=== PATIENT | female | born 1980 | race Caucasian/White ===

== ENCOUNTER 2017-06-17 15:42 | Emergency (ER) | payer MEDICARE ==
[2015-09-08 06:09] VITALS: BMI 43.3
[~2017-06-17 15:42] MED LIST: AMITRIPTYLINE H50 MG PO; COREG 3.1253.125 MG PO; COREG12.5 MG PO; COREG25 MG PO; DEPAKOTE500 MG PO; DESERYL100 MG PO; DILANTIN100 MG PO; DILAUDID2 MG PO; GLUCOPHAGE500 MG PO; HYDROCODON-ACE1 EAC7 PO; HYDROCODONE-APA1 TAB; LANTUS SOL100 UNIT/1 SC; LASIX20 MG PO; LEVAQUIN 5500 MG/100 PO; PEPCID40 MG PO; PERCOCET 10/3251 TA1 PO; PERPHENAZINE2 MG PO; PHENERGAN25 M1 PO; PRAVACHOL20 MG PO; REGLAN5 MG PO; REMERON15 MG PO; TENORMIN25 MG; ULTRAM50 MG PO; ZESTRIL40 MG PO; ZOFRAN8 MG PO; ZOLOFT50 MG PO; ZYPREXA20 MG PO; domperidone PO
[2017-06-17 17:06] LABS: BASOPHILS 0.2 % (0-2); EOSINOPHILS 0 % (0-7); HEMATOCRIT 37.7 % (36.0-48.0); IMMATURE GRANULOCYTES 0.5 % (0-5); MCH 27.3 pg (26.0-34.0); MCHC 31.8 g/dL (31.0-37.0); MCV 85.7 fL (80.0-100.0); MEAN PLATELET VOLUME 9.6 fL (7.4-10.4); MONOCYTES 6.8 % (2-11); NEUTROPHILS 64.5 % (40-80); PLATELET COUNT 272 10x3/uL (130-400); RDW 13.5 % (11.5-14.5); WBC 9.9 10x3/uL (4.8-10.8)
[2017-06-17 17:12] LABS: APPEARANCE CLEAR (CLEAR); BILIRUBIN NEGATIVE (NEGATIVE); COLOR YELLOW (YELLOW); GLUCOSE NEGATIVE (NEGATIVE); KETONE NEGATIVE (NEGATIVE); LEUKOCYTE ESTERASE NEGATIVE (NEGATIVE); NITRITE NEGATIVE (NEGATIVE); PROTEIN NEGATIVE (NEGATIVE); UROBILINOGEN NORMAL (NORMAL)
[2017-06-17 17:14] LABS: BACTERIA FEW /hpf (NONE SEEN); EPITHELIAL CELLS 0-5 /hpf (0-5); RED CELLS - URINE OCC /hpf (0-5); WHITE CELLS - URINE OCC /hpf (0-5)
[2017-06-17 17:26] LABS: ALBUMIN 3.7 g/dL (3.4-5.0); ANION GAP 15.9 mmol/L (8-16); BILIRUBIN - TOTAL 0.26 mg/dL (0.2-1.3); CALCIUM 8.5 mg/dL (8.5-10.1); CARBON DIOXIDE 24.7 mmol/L (21.0-32.0); POTASSIUM - SERUM 3.6 mmol/L (3.5-5.1); PROTEIN - SERUM 6.9 g/dL (6.4-8.2)
== END 2017-06-17 20:05 | disposition home or self-care (01) ==
LOC: D.ER 15:42
PROVIDERS: Emergency Medicine
DX: G40.909 Epilepsy, unspecified, not intractable, without status epilepticus (principal); E11.9 Type 2 diabetes mellitus without complications

== ENCOUNTER 2017-07-10 19:20 | Observation (INO) | payer MEDICARE ==
[~2017-07-10] VITALS: Ht 160 cm; Wt 117.9 kg
--- NOTE | ~2017-07-10 | OP ---
PATIENT NAME: CINDI MEDICAL RECORD: [id number] :82 LOCATION:D.MS [facility]29 ADMISSION DATE:07/11/17 SURGEON: JEFFREY WINKLER MD DATE OF OPERATION: 07/11/2017 PREOPERATIVE DIAGNOSES: 1. Diabetic gastroparesis. 2. Diabetes mellitus. 3. Seizure disorder. POSTOPERATIVE DIAGNOSES: 1. Diabetic gastroparesis. 2. Diabetes mellitus. 3. Seizure disorder. PROCEDURE: Percutaneous endoscopic jejunostomy tube placement. SURGEON: Jeffrey Winkler MD REPORT OF PROCEDURE: The patient's abdomen was prepped and draped in sterile fashion. An Olympus endoscope was advanced through the mouth and esophagus and found the area on the antrum/body of the stomach to house the tube. A total of 5 cc of 1% lidocaine was infused into the subcutaneous tissues. A skin incision was then made with an 11 blade. An Angiocath needle was inserted through the abdominal wall and into the gastric lumen. A guidewire was advanced through this and grasped with an Endo snare. The guidewire and scope were pulled through the mouth and esophagus and the 20-St Helenian PEG tube was affixed to the wire. The wire and PEG tube were pulled through the abdominal wall. At this point, the end PEG tube was opened up and a wire was advanced through the PEG tube into the gastric lumen and also through a gastrojejunostomy tube. We advanced the endoscope back through the mouth and esophagus. We grasped the PEG tube and pulled it out through the mouth and over the wire that was in place, we pulled the jejunostomy tube through the gastric wall. The jejunostomy tube was then positioned in the fourth portion of the duodenum using the endoscope. Once the tube was in good position, we noted that was flushing easily with sterile water. There was no sign of any active bleeding. The balloon on the gastrostomy tube was inflated with 10 mL of sterile water and pulled tightly to the abdominal wall. At this point, the insufflation and endoscope was removed. COMPLICATIONS: None. CONDITION: Stable. ANESTHESIA: General endotracheal. BLOOD LOSS: Minimal. TRANSINT:[id number] Voice Confirmation ID: [id number] DOCUMENT ID: [id number] OPERATIVE REPORT [id number] CINDI JEFFREY WINKLER MD CC: JOHN ARNDT MD and ELDER MARTIN MD [id number] DICTATION DATE: 07/11/17 1648 AUTOMATIC WINDER OPERATOR: 07/12/17 0004 ADM IN [place] [id number] [place] [id number]
[2017-07-10 20:22] LABS: APPEARANCE HAZY (CLEAR); BILIRUBIN NEGATIVE (NEGATIVE); COLOR YELLOW PINK (YELLOW); GLUCOSE NEGATIVE (NEGATIVE); KETONE NEGATIVE (NEGATIVE); LEUKOCYTE ESTERASE 1+ (NEGATIVE); NITRITE NEGATIVE (NEGATIVE); PROTEIN NEGATIVE (NEGATIVE); SPECIFIC GRAVITY 1.015 (1.005-1.020); UROBILINOGEN NORMAL (NORMAL)
[2017-07-10 20:23] LABS: BACTERIA MODERATE /hpf (NONE SEEN); EPITHELIAL CELLS 0-5 /hpf (0-5); MUCUS <1+ /lpf (NONE SEEN); WHITE CELLS - URINE 0-5 /hpf (0-5)
[2017-07-10 20:28] LABS: UDS - AMPHET NEGATIVE QUAL (NEGATIVE); UDS - BARB NEGATIVE QUAL (NEGATIVE); UDS - BENZO NEGATIVE QUAL (NEGATIVE); UDS - COCAINE NEGATIVE QUAL (NEGATIVE); UDS - METH NEGATIVE QUAL (NEGATIVE); UDS - OPIATE NEGATIVE QUAL (NEGATIVE); UDS - PCP NEGATIVE QUAL (NEGATIVE); UDS - THC NEGATIVE QUAL (NEGATIVE)
[2017-07-10 20:36] LABS: BASOPHILS 0.2 % (0-2); EOSINOPHILS 0.1 % (0-7); HEMATOCRIT 39.9 % (36.0-48.0); HEMOGLOBIN 12.8 g/dL (12-16); IMMATURE GRANULOCYTES 0.2 % (0-5); LYMPHOCYTES 29.3 % (15-50); MCH 27.3 pg (26.0-34.0); MCHC 32.1 g/dL (31.0-37.0); MCV 85.1 fL (80.0-100.0); MEAN PLATELET VOLUME 9.7 fL (7.4-10.4); MONOCYTES 8.2 % (2-11); PLATELET COUNT 231 10x3/uL (130-400); RBC 4.69 10x6/uL (4.00-5.40); RDW 14.4 % (11.5-14.5); WBC 9.6 10x3/uL (4.8-10.8)
[2017-07-10 20:56] LABS: ALBUMIN 3.8 g/dL (3.4-5.0); ANION GAP 9.9 mmol/L (8-16); BILIRUBIN - TOTAL 0.15 mg/dL (0.2-1.3); CARBON DIOXIDE 29.6 mmol/L (21.0-32.0); PHENYTOIN (DILANTIN) 0.9 ug/mL (10.0-20.0); POTASSIUM - SERUM 3.5 mmol/L (3.5-5.1); PROTEIN - SERUM 7.9 g/dL (6.4-8.2); VALPROIC ACID (DEPAKOTE) 27.3 ug/mL (50.0-100.0)
[2017-07-11] MEDS ORDERED: ULTRAM50 MG PO (02:45)
[2017-07-11] MEDS ORDERED: MIRAPEX0.125 MG PO (02:49)
[2017-07-11] MEDS ORDERED: DEPAKOTE250 MG PO (02:50)
[2017-07-11] MEDS ORDERED: DILANTIN100 MG PO (02:53)
[2017-07-11] MEDS ORDERED: TEMAZEPAM30 MG PO (02:56)
[2017-07-11] MEDS ORDERED: PHENERGAN25 M1 PO (02:58)
[2017-07-11] MEDS ORDERED: OMEPRAZOLE CAP 20M (03:00)
[2017-07-11] MEDS ORDERED: LISINOPRIL TAB 5MG (03:00)
[2017-07-11] MEDS ORDERED: ZOLOFT100 MG PO (03:04)
[2017-07-11] MEDS ORDERED: NOVOLIN R100 U/ML (03:06)
[2017-07-11 03:09] VITALS: BP 153/100; BMI 46.1
[2017-07-11 04:00] VITALS: BP 140/86
--- NOTE | 2017-07-11 04:30 | NUR ---
ANSWERED CALL LIGHT AND PT ARMS AND FEET SHAKING WITH EYES CLOSED. MOTHER STATED SHE WAS HAVING A SEIZURE. SEIZURE LASTED LESS THAN A MINUITE WHEN THIS NURSE ENTERED THE ROOM. EDUCATED MOTHER ON PRECAUTIONS SUCH KEEP BED RAILS UP AND KEEP HER HEAD SAFE. NO BRIGHT LIGHT OR LOUD SOUNDS. KEEP A QUIET ENVIROMENT. PT DID NOT AROUSE AFTERWARD. CONT. TO HAVE EYES CLOSED.
[2017-07-11 07:53] VITALS: BP 163/89
--- NOTE | 2017-07-11 08:05 | NUR ---
PT AOX4 RESP EVEN AND NONLABORED PT DENIES NEEDS AT THIS TIME IV TO LEFT HAND PATENT AND INTACT AT THIS TIME SRX2 BED AT LOWEST SETTING CALL LIGHT WITHIN REACH WILL CONTINUE TO MONITOR
[2017-07-11 10:18] LABS: BASOPHILS 0.2 % (0-2); EOSINOPHILS 0 % (0-7); HEMATOCRIT 39.4 % (36.0-48.0); HEMOGLOBIN 12.7 g/dL (12-16); IMMATURE GRANULOCYTES 0.2 % (0-5); LYMPHOCYTES 28.6 % (15-50); MCH 27.2 pg (26.0-34.0); MCHC 32.2 g/dL (31.0-37.0); MCV 84.4 fL (80.0-100.0); MONOCYTES 7.7 % (2-11); NEUTROPHILS 63.3 % (40-80); PLATELET COUNT 223 10x3/uL (130-400); RBC 4.67 10x6/uL (4.00-5.40); RDW 14.5 % (11.5-14.5); WBC 8.5 10x3/uL (4.8-10.8)
[2017-07-11 10:40] LABS: ALKALINE PHOSPHATASE 87 U/L (46-116); ALT (SGPT) 19 U/L (10-68); AMYLASE - SERUM 35 U/L (25-115); CALC OSMOLALITY 278 mosm/kg (275-300); CALCIUM 8.9 mg/dL (8.5-10.1); CARBON DIOXIDE 27.1 mmol/L (21.0-32.0); CHLORIDE - SERUM 103 mmol/L (98-107); CREATININE - SERUM 0.9 mg/dL (0.6-1.3); GLUCOSE 133 mg/dL (74-106); LIPASE 221 U/L (73-393); PROTEIN - SERUM 7.9 g/dL (6.4-8.2); SODIUM 140 mmol/L (136-145); UREA NITROGEN 6 mg/dL (7-18); eGFR NON AFRICAN AMERICAN 75 mL/min (90-120)
[2017-07-11 10:41] LABS: POTASSIUM - SERUM 4.2 mmol/L (3.5-5.1)
[2017-07-11 12:16] VITALS: BP 144/79
[2017-07-11 12:59] VITALS: Ht 160 cm; Wt 117.9 kg
[2017-07-11 17:56] VITALS: BP 165/87
--- NOTE | 2017-07-11 19:10 | NUR ---
LYING IN BED WITH EYES CLOSED. NO S/S OF DISTRESS OBSERVED. VISITOR AT BEDSIDE IV TO LEFT HAND WITH NS@125CC/HR.
[2017-07-11 20:00] VITALS: BP 188/107
[2017-07-12] VITALS: BP 166/89
[2017-07-12 04:00] VITALS: BP 160/97
--- NOTE | 2017-07-12 07:50 | NUR ---
PT AOX4 RESP EVEN AND NONLABORED PT DENIES NEEDS AT THIS TIME IV TO LEFT FOREARM PATENT AND INTACT AT THIS TIME SRX2 BED AT LOWEST SETTING CALL LIGHT WITHIN REACH WILL CONTINUE TO MONITOR
[2017-07-12 08:21] VITALS: BP 145/87
[2017-07-12 12:09] VITALS: BP 143/77
[2017-07-12] MEDS ORDERED: HYDROCODONE-APA1 TAB PO (14:16)
[2017-07-12 15:55] VITALS: BP 145/89
== END 2017-07-12 17:00 | disposition home or self-care (01) ==
LOC: D.ER 19:20 → D.MS 07-11 00:24 → OBSVTIME 07-11 00:24 → D.MS 07-11 00:24
PROVIDERS: Emergency Medicine; ADMIT Family Medicine
DX: E11.43 Type 2 diabetes mellitus with diabetic autonomic (poly)neuropathy (principal); K31.84 Gastroparesis; Z79.4 Long term (current) use of insulin; G40.909 Epilepsy, unspecified, not intractable, without status epilepticus; I10 Essential (primary) hypertension; N39.0 Urinary tract infection, site not specified; G47.00 Insomnia, unspecified

== ENCOUNTER 2017-09-02 07:30 | Emergency (ER) | payer MEDICARE ==
[2017-07-11 12:59] VITALS: BMI 46.0
--- NOTE | ~2017-09-02 | HEMODYNAMI ---
PATIENT:ALISTAIR PUENTE MEDICAL RECORD: [id number] : 82 LOCATION:D.ER ADMISSION DATE: 09/02/17 Generatedon:09/02/201710:55 Patient name: ALISTAIR PUENTE Patient #: [id number] SSN: : 1980 Date of study: 09/02/2017 Page: Of Hemodynamic Procedure Report Patient Data Patient Demographics Procedure consent was obtained First Name: MARCH Gender: Female Last Name: CINDI : 1980 Middle Initial: D Age: 37 year(s) Patient #: [id number] Race: Unknown Additional ID: [id number] Contact details Address: [address] [place] [address] State: [place] City: [place] Zip code: [address] Admission Admission Data Admission Date: 09/02/2017 Admission Time: 7:30 Procedure Procedure Types Cath Procedure Peripheral Cath Diagnostic Procedure Miscellaneous Procedure Description Procedure Date Procedure Date: 09/02/2017 Procedure Start Time: 10:23 Procedure Staff Name Function Tone Vazquez MD Performing Physician Sol Kenny RT Scrub Anne Martinez RN Nurse Abhinav Schultz RT Monitor Procedure Data Cath Procedure Fluoroscopy Diagnostic fluoroscopy Total fluoroscopy Time: 6.1 time: 6.1 min min Diagnostic fluoroscopy Total fluoroscopy dose: 112 dose: 112 mGy mGy Contrast Material Contrast Material Type Amount (ml) Isovue 300 20 Hemodynamics Rest Pre Cath Intra NCS Post Cath Procedure Log Time Note 9:37:41 Abhinav Schultz RT (R) (CV) sent for patient. Start room use. 9:37:46 Time tracking: Regular hours 9:37:54 Plan of Care:Hemodynamics will remain stable., Cardiac rhythm will remain stable., Comfort level will be maintained., Respiratory function will remain adequate., Patient/ family verbilizes understanding of procedure., Procedure tolerated without complication., Recovers from procedure without complications.. 9:38:12 Patient received from ED to IR Alert and oriented. Tansferred to table in Supine position. 9:38:14 Correct patient and procedure confirmed by team. 9:38:17 Signed procedure consent form obtained from patient. 9:38:23 Full Disclosure recording started 9::24 - 9:38:32 Use device set IR Diagnostic 9:38:33 Sterile Angiographic Pack opened to sterile field. 9:38:34 Bag Decanter opened to sterile field. 9:55:11 Left abdomen area was prepped with chlora-prep and draped in sterile fashion 10::24 Physician arrived 10::24 --------ALL STOP TIME OUT------ 10:21:31 Left abdomen site verified by team. 10:21:42 Sedation plan: Local Anesthetic Lidocaine 10:23:52 Procedure started. 10:23:58 Local anesthetic to Abdominal area with Lidocaine 1% by Tone Vazquez MD.INITIAL ACCESS ONLY 10:25:16 20Fr Gastro-Enteric Tube opened to sterile field. 10:27:12 Terumo 4FR Straight 65CM glide catheter opened to sterile field. 10:27:[address] .035 145 glide wire opened to sterile field. 10:37:21 Cook Fuentes 1 7Fr Guide sheath opened to sterile field. 10:42:45 [place] Sci AMPLATZ Super stiff 180cm guide wire opened to sterile field . 10:49:52 Procedure ended.(Physican Out) 10:50:34 Contrast amount:Isovue 300 20ml. 10:51:31 Fluoroscopy time 06.10 minutes. 10:51:46 Fluoroscopy dose: 112 mGy 10:51:46 Flurop Dose total: 112 10:54:25 Sharps counted by scrub and verified by R.N. 10:54:40 Post Abdominal area:stable 10:54:42 Post procedure instruction explained to patient.Patient verbalizes understanding. 10:54:59 Report given to Other. 10:55:01 Report given to ED. 10:55:05 Patient transfered to ED with Stretcher. Device Usage Item Name Manufacture Quantity Catalog Hospital Part Current Minim al Lot# / Number Charge Number Stock Stock Serial# Code Sterile Cardinal 1 [id number] 5 Angiographic Health Pack Bag Decanter Microtek 1 2001S [id number] 99556 120566 5 Medical Inc. 18Fr Halyard 1 0110-18 680086 923547 969973 5 Gastro[employer]ic [employer] Tube Terumo 4FR Terumo 1 CG412 960114 591466 5 Straight 65CM glide catheter Cook Cook Medical 1 [id number] 352506 831719 5 ROADRUNNER .035 145 glide wire Cook Fuentes 1 Cook Medical 1 [id number] 324509 5 [id number] 7Fr Guide sheath Antwerp Sci [place] 1 [id number] [id number] 5 [id number] AMPLATZ Super Scientific stiff 180cm guide wire Signature Audit [place] Stage Time Signature Unsigned Intra-Procedure 09/02/2017 Abhinav 10:55:45 AM Marion RT (R) (CV) Signatures Monitor : Abhinav Signature : Marion RT Date : Time : [place] [address] [place] [address]
[~2017-09-02 07:30] MED LIST changes: +DEPAKOTE250 MG PO; +HYDROCODONE-APA1 TAB PO; +LISINOPRIL TAB 5MG; +MIRAPEX0.125 MG PO; +NOVOLIN R100 U/ML; +OMEPRAZOLE CAP 20M; +TEMAZEPAM30 MG PO; +ZOLOFT100 MG PO
== END 2017-09-02 11:25 | disposition home or self-care (01) ==
LOC: D.ER 07:30
DX: K94.29 Other complications of gastrostomy (principal); E11.9 Type 2 diabetes mellitus without complications

== ENCOUNTER 2017-12-24 17:27 | Emergency (ER) | payer MEDICARE ==
[2017-07-11 12:59] VITALS: BMI 46.0
[2017-12-24 18:08] LABS: BASOPHILS 0.2 % (0-2); EOSINOPHILS 0.1 % (0-7); HEMATOCRIT 41.2 % (36.0-48.0); HEMOGLOBIN 13.5 g/dL (12-16); IMMATURE GRANULOCYTES 0.5 % (0-5); LYMPHOCYTES 21.5 % (15-50); MCH 27.4 pg (26.0-34.0); MCHC 32.8 g/dL (31.0-37.0); MCV 83.6 fL (80.0-100.0); MEAN PLATELET VOLUME 9.5 fL (7.4-10.4); MONOCYTES 6.1 % (2-11); NEUTROPHILS 71.6 % (40-80); RBC 4.93 10x6/uL (4.00-5.40); RDW 13.7 % (11.5-14.5); WBC 11.9 10x3/uL (4.8-10.8)
[2017-12-24 18:14] LABS: PLATELET COUNT 316 10x3/uL (130-400)
[2017-12-24 18:24] LABS: ALBUMIN 4.1 g/dL (3.4-5.0); ALKALINE PHOSPHATASE 92 U/L (46-116); ALT (SGPT) 33 U/L (10-68); BILIRUBIN - TOTAL 0.17 mg/dL (0.2-1.3); CALC OSMOLALITY 279 mosm/kg (275-300); CALCIUM 9.4 mg/dL (8.5-10.1); CARBON DIOXIDE 25.3 mmol/L (21.0-32.0); CHLORIDE - SERUM 101 mmol/L (98-107); CREATININE - SERUM 0.9 mg/dL (0.6-1.3); GLUCOSE 151 mg/dL (74-106); POTASSIUM - SERUM 3.8 mmol/L (3.5-5.1); PROTEIN - SERUM 8.3 g/dL (6.4-8.2); SODIUM 139 mmol/L (136-145); UREA NITROGEN 11 mg/dL (7-18); eGFR NON AFRICAN AMERICAN 75 mL/min (90-120)
[2017-12-24 18:34] LABS: CKMB 0.6 U/L (0.0-3.6); CREATINE KINASE 160 UL (21-215)
[2017-12-24 18:44] LABS: TROPONIN-I < 0.017 ng/mL (0.000-0.060)
== END 2017-12-24 21:00 | disposition home or self-care (01) ==
LOC: D.ER 17:27
PROVIDERS: Emergency Medicine
DX: R11.10 Vomiting, unspecified (principal); K31.84 Gastroparesis; Z95.0 Presence of cardiac pacemaker; E11.9 Type 2 diabetes mellitus without complications; F17.200 Nicotine dependence, unspecified, uncomplicated

== ENCOUNTER 2017-12-29 22:28 | Emergency (ER) | payer MEDICARE ==
[2017-07-11 12:59] VITALS: BMI 46.0
[2017-12-30 00:09] LABS: HCG SERUM NEGATIVE (NEGATIVE)
[2017-12-30 00:10] LABS: APPEARANCE CLEAR (CLEAR); BILIRUBIN NEGATIVE (NEGATIVE); COLOR YELLOW (YELLOW); GLUCOSE NEGATIVE (NEGATIVE); KETONE NEGATIVE (NEGATIVE); NITRITE NEGATIVE (NEGATIVE); PROTEIN NEGATIVE (NEGATIVE); SPECIFIC GRAVITY 1.015 (1.005-1.020); UROBILINOGEN NORMAL (NORMAL)
[2017-12-30 00:12] LABS: BACTERIA FEW /hpf (NONE SEEN); EPITHELIAL CELLS 0-5 /hpf (0-5); RED CELLS - URINE 0-5 /hpf (0-5); WHITE CELLS - URINE 0-5 /hpf (0-5); YEAST <1+ /hpf (NONE SEEN)
[2017-12-30 00:12] LABS: ALBUMIN 3.8 g/dL (3.4-5.0); ALKALINE PHOSPHATASE 90 U/L (46-116); ALT (SGPT) 36 U/L (10-68); CALC OSMOLALITY 282 mosm/kg (275-300); CALCIUM 9.4 mg/dL (8.5-10.1); CARBON DIOXIDE 26.4 mmol/L (21.0-32.0); CHLORIDE - SERUM 102 mmol/L (98-107); CREATININE - SERUM 0.8 mg/dL (0.6-1.3); GLUCOSE 124 mg/dL (74-106); LIPASE 385 U/L (73-393); POTASSIUM - SERUM 3.5 mmol/L (3.5-5.1); PROTEIN - SERUM 7.7 g/dL (6.4-8.2); SODIUM 141 mmol/L (136-145); UREA NITROGEN 14 mg/dL (7-18); eGFR NON AFRICAN AMERICAN 86 mL/min (90-120)
[2017-12-30 00:18] LABS: HEMATOCRIT 37.5 % (36.0-48.0); HEMOGLOBIN 12.5 g/dL (12-16); LYMPHOCYTES 20.9 % (15-50); MCH 26.9 pg (26.0-34.0); MCHC 33.3 g/dL (31.0-37.0); MCV 80.8 fL (80.0-100.0); MEAN PLATELET VOLUME 9.9 fL (7.4-10.4); NEUTROPHILS 73.9 % (40-80); PLATELET COUNT 290 10x3/uL (130-400); RBC 4.64 10x6/uL (4.00-5.40); RDW 13.2 % (11.5-14.5); WBC 12.9 10x3/uL (4.8-10.8)
== END 2017-12-30 03:49 | disposition home or self-care (01) ==
LOC: D.ER 22:28
PROVIDERS: Emergency Medicine
DX: R10.9 Unspecified abdominal pain (principal); E11.9 Type 2 diabetes mellitus without complications

== ENCOUNTER 2017-12-30 22:01 | Emergency (ER) | payer MEDICARE ==
[2017-07-11 12:59] VITALS: BMI 46.0
[2017-12-30 23:06] LABS: BASOPHILS 0.2 % (0-2); EOSINOPHILS 0 % (0-7); HEMATOCRIT 38.7 % (36.0-48.0); HEMOGLOBIN 12.6 g/dL (12-16); IMMATURE GRANULOCYTES 0.3 % (0-5); LYMPHOCYTES 20.9 % (15-50); MCH 26.9 pg (26.0-34.0); MCHC 32.6 g/dL (31.0-37.0); MCV 82.5 fL (80.0-100.0); MEAN PLATELET VOLUME 9.5 fL (7.4-10.4); MONOCYTES 7.6 % (2-11); PLATELET COUNT 237 10x3/uL (130-400); RBC 4.69 10x6/uL (4.00-5.40); RDW 13.9 % (11.5-14.5); WBC 10.6 10x3/uL (4.8-10.8)
[2017-12-30 23:17] LABS: APPEARANCE CLEAR (CLEAR); BILIRUBIN NEGATIVE (NEGATIVE); COLOR YELLOW (YELLOW); GLUCOSE NEGATIVE (NEGATIVE); KETONE NEGATIVE (NEGATIVE); NITRITE NEGATIVE (NEGATIVE); PROTEIN NEGATIVE (NEGATIVE); SPECIFIC GRAVITY 1.015 (1.005-1.020); UROBILINOGEN NORMAL (NORMAL)
[2017-12-30 23:21] LABS: ALBUMIN 3.7 g/dL (3.4-5.0); ALKALINE PHOSPHATASE 82 U/L (46-116); ALT (SGPT) 35 U/L (10-68); BILIRUBIN - TOTAL 0.22 mg/dL (0.2-1.3); CALCIUM 9.5 mg/dL (8.5-10.1); CARBON DIOXIDE 28.6 mmol/L (21.0-32.0); CHLORIDE - SERUM 103 mmol/L (98-107); CREATININE - SERUM 0.8 mg/dL (0.6-1.3); GLUCOSE 105 mg/dL (74-106); LIPASE 225 U/L (73-393); PHENYTOIN (DILANTIN) 0.5 ug/mL (10.0-20.0); PROTEIN - SERUM 7.6 g/dL (6.4-8.2); SODIUM 140 mmol/L (136-145); eGFR NON AFRICAN AMERICAN 86 mL/min (90-120)
[2017-12-30 23:22] LABS: CALC OSMOLALITY 276 mosm/kg (275-300); POTASSIUM - SERUM 4.2 mmol/L (3.5-5.1); UREA NITROGEN 8 mg/dL (7-18)
== END 2017-12-31 02:00 | disposition home or self-care (01) ==
LOC: D.ER 22:01
PROVIDERS: Emergency Medicine
DX: R10.9 Unspecified abdominal pain (principal); E11.9 Type 2 diabetes mellitus without complications

== ENCOUNTER → 2018-01-08 09:46 | Outpatient (CLI) | payer MEDICARE ==
[2017-07-11 12:59] VITALS: BMI 46.0
--- NOTE | ~2018-01-08 | HEMODYNAMI ---
PATIENT:ALISTAIR PUENTE MEDICAL RECORD: [id number] : 82 LOCATION:DIRAM ADMISSION DATE: 01/08/18 Generatedon:01/08/201811:14 Patient name: ALISTAIR PUENTE Patient #: [id number] SSN: : 1980 Date of study: 01/08/2018 Page: Of Hemodynamic Procedure Report Patient Data Patient Demographics Procedure consent was obtained First Name: MARCH Gender: Female Last Name: CINDI : 1980 Middle Initial: D Age: 37 year(s) Patient #: [id number] Race: Unknown Additional ID: [id number] Contact details Address: [address] [place] [address] State: [place] City: [place] Zip code: [address] Admission Admission Data Admission Date: 01/08/2018 Admission Time: 9:46 Procedure Procedure Types Cath Procedure Peripheral Cath Diagnostic Procedure Cath Peripheral Gastric G J Tube Replacement Procedure Description Procedure Date Procedure Date: 01/08/2018 Procedure Start Time: 11:05 Procedure Staff Name Function Tone Vazquez MD Performing Physician Sol Kenny RT Monitor Abhinav Schultz RT Scrub Anne Martinez RN Nurse Sol Kenny RT Retail Selling Specialist Procedure Data Cath Procedure Fluoroscopy Diagnostic fluoroscopy Total fluoroscopy Time: 2.1 time: 2.1 min min Diagnostic fluoroscopy Total fluoroscopy dose: 106 dose: 106 mGy mGy Contrast Material Contrast Material Type Amount (ml) Isovue 300 45 Procedure Medications Medication Administration Route Dosage Lidocaine 1% added to field 20 Heparin Flush Bag added to field 1 bags (1000units/500ml NS) Hemodynamics Rest Pre Cath Intra NCS Post Cath Medications Time Medication Route Dose Verified Delivered Reason Notes Effe ctiveness by by 10:51:06 Lidocaine 1% added 20ml Anne Wayne for local to vial Juan Vazquez anesthetic field BHANU WAGNER 10:51:22 Heparin Flush added 1 Anne Wayne used for Bag to bags Juan Vazquez procedure (1000units/500ml field BHANU WAGNER NS) Procedure Log Time Note 10:49:56 Time tracking: Regular hours 10:50:27 Patient received from Other to IR Alert and oriented. Tansferred to table in Supine position. 10:50:29 Correct patient and procedure confirmed by team. 10:50:31 Signed procedure consent form obtained from patient. 10:51:06 Lidocaine 1% 20ml vial added to field was administered by Tone Vazquez MD; for local anesthetic; 10:51:22 Heparin Flush Bag (1000units/500ml NS) 1 bags added to field was administered by Tone Vazquez MD; used for procedure; 10:51:24 - 11:04:04 GLIDE CATHETER 5FR ANGLED 100cm (CG508) opened to sterile field. 11:04:44 RO[address]RUNNER .035 145 glide wire ([id number]) opened to sterile field. 11:04:45 ROADRUNNER .035 260 glide wire ([id number]) opened to sterile field. 11:04:56 Use device set IR Diagnostic 11:04:58 Sterile Angiographic Pack opened to sterile field. 11:04:59 Bag Decanter () opened to sterile field. 11:05:11 Physician arrived 11:05:36 Procedure started. 11:05:37 Full Disclosure recording started 11:07:07 GASTRO-ENTERIC FEEDING TUBE 20FR. opened to sterile field and placed 11:13:30 Procedure ended.(Physican Out) 11:13:41 Fluoroscopy time 02.10 minutes. 11:13:47 Fluoroscopy dose: 106 mGy 11:13:47 Flurop Dose total: 106 11:13:56 Contrast amount:Isovue 300 45ml. 11:14:02 Procedure and supply charges have been captured, reviewed, submitted an d are correct. Device Usage Item Name Manufacture Quantity Catalog Hospital Part Current Min imal Lot# / Number Charge Number Stock Stock Serial# Code GLIDE CATHETER Terumo 1 [id number] 021278 20042 009020 4 5FR ANGLED 100cm (CG508) [facility] [id number] 714051 617929 090825 5 [id number] .035 145 glide wire (F86394) [facility] 1 G43934 275658 404236 057703 5 [id number] .035 260 glide wire (G59629) Sterile Cardinal 1 [id number] 535048 976535 5 Angiographic Health Pack Bag Decanter Microtek 1 2001S 998989 83730 552528 5 () Medical Inc. GASTRO-ENTERIC VINNY 1 0210-22 535890 058111 5 FEEDING TUBE 22FR. Signature Audit [place] Stage Time Signature Unsigned Intra-Procedure 01/08/2018 Sol Kenny 11:14:23 AM RT(R) Signatures Monitor : Sol Kenny RT Signature : Date : Time : [place] [id number] [place] [address]
== END | disposition home or self-care (01) ==
LOC: D.OPS 09:46 → D.RAD 11:00
DX: K94.23 Gastrostomy malfunction (principal); Z01.812 Encounter for preprocedural laboratory examination

== ENCOUNTER 2018-04-01 14:59 | Day surgery (SDC) | payer MEDICARE ==
[~2018-04-01] VITALS: Ht 160 cm; Wt 113.6 kg
--- NOTE | ~2018-04-01 | OP ---
PATIENT NAME: CINDIMarch MEDICAL RECORD: [id number] :82 LOCATION:D.ER ADMISSION DATE: SURGEON: DONNA WINKLER MD DATE OF OPERATION: 04/02/2018 PREOPERATIVE DIAGNOSES: 1. Displaced J PEG. 2. Diabetic gastroparesis. 3. Diabetes mellitus. 4. Seizure disorder. POSTOPERATIVE DIAGNOSES: 1. Displaced J PEG. 2. Diabetic gastroparesis. 3. Diabetes mellitus. 4. Seizure disorder. PROCEDURE: EGD with repositioning of displaced J PEG. SURGEON: Donna Winkler MD REPORT OF PROCEDURE: The patient's indwelling J PEG was actually extending out of the patient's mouth and Olympus endoscope was advanced through the patient's mouth and esophagus and into the stomach. As I pulled back to about the mid esophagus, I was able to grasp the tubing and pull it back down into the stomach. Eventually, I was able to pull the tubing all the way down to where the tip was in the stomach. The tip was grasped and we advanced the tip of the J PEG through the pylorus and into the second portion of the duodenum. I tried to advance it further. We were unable to get it move. We eventually just left it in place. We can see that the remaining catheter was in place in the stomach without any signs of knots. At this point, the endoscope was removed. COMPLICATIONS: None. CONDITION: Stable. ANESTHESIA: TIVA. BLOOD LOSS: Minimal. TRANSINT:[id number] Voice Confirmation ID: [id number] DOCUMENT ID: [id number] DONNA WINKLER MD at 1409 CC: [id number] DICTATION DATE: 04/02/18 1213 MORPHOLOGY TEACHER: 04/02/18 1238 [facility] 04/02/18 [place] [id number] [place] [id number]
[2018-04-01 14:48] LABS: BASOPHILS 0.1 % (0-2); EOSINOPHILS 0 % (0-7); HEMATOCRIT 40.1 % (36.0-48.0); HEMOGLOBIN 12.9 g/dL (12-16); IMMATURE GRANULOCYTES 0.2 % (0-5); LYMPHOCYTES 6.8 % (15-50); MCH 27.3 pg (26.0-34.0); MCHC 32.2 g/dL (31.0-37.0); MEAN PLATELET VOLUME 9.7 fL (7.4-10.4); MONOCYTES 6.4 % (2-11); NEUTROPHILS 86.5 % (40-80); PLATELET COUNT 240 10x3/uL (130-400); RBC 4.72 10x6/uL (4.00-5.40); RDW 13.7 % (11.5-14.5); WBC 14.6 10x3/uL (4.8-10.8)
[2018-04-01 15:05] LABS: APTT 26.6 SECONDS (22.8-39.4); INR 0.92 (0.85-1.17)
[2018-04-01 15:20] LABS: ALBUMIN 3.8 g/dL (3.4-5.0); ALKALINE PHOSPHATASE 92 U/L (46-116); ALT (SGPT) 38 U/L (10-68); CALC OSMOLALITY 276 mosm/kg (275-300); CARBON DIOXIDE 20.8 mmol/L (21.0-32.0); CHLORIDE - SERUM 101 mmol/L (98-107); CREATININE - SERUM 0.8 mg/dL (0.6-1.3); GLUCOSE 141 mg/dL (74-106); POTASSIUM - SERUM 3.4 mmol/L (3.5-5.1); SODIUM 138 mmol/L (136-145); UREA NITROGEN 10 mg/dL (7-18); eGFR NON AFRICAN AMERICAN 86 mL/min (90-120)
[2018-04-02 05:42] LABS: BASOPHILS 0.1 % (0-2); EOSINOPHILS 0 % (0-7); HEMATOCRIT 38.9 % (36.0-48.0); HEMOGLOBIN 12.6 g/dL (12-16); IMMATURE GRANULOCYTES 0.3 % (0-5); LYMPHOCYTES 11.2 % (15-50); MCH 27.4 pg (26.0-34.0); MCHC 32.4 g/dL (31.0-37.0); MCV 84.6 fL (80.0-100.0); MONOCYTES 5.5 % (2-11); NEUTROPHILS 82.9 % (40-80); PLATELET COUNT 254 10x3/uL (130-400); RDW 13.9 % (11.5-14.5)
[2018-04-02 06:01] LABS: WBC 8.7 10x3/uL (4.8-10.8)
[2018-04-02 06:17] LABS: ALBUMIN 3.3 g/dL (3.4-5.0); ALKALINE PHOSPHATASE 81 U/L (46-116); ALT (SGPT) 46 U/L (10-68); BILIRUBIN - TOTAL 0.27 mg/dL (0.2-1.3); CALC OSMOLALITY 272 mosm/kg (275-300); CALCIUM 8.5 mg/dL (8.5-10.1); CARBON DIOXIDE 22.2 mmol/L (21.0-32.0); CHLORIDE - SERUM 101 mmol/L (98-107); CREATININE - SERUM 0.8 mg/dL (0.6-1.3); GLUCOSE 130 mg/dL (74-106); POTASSIUM - SERUM 3.2 mmol/L (3.5-5.1); PROTEIN - SERUM 7.3 g/dL (6.4-8.2); SODIUM 136 mmol/L (136-145); UREA NITROGEN 9 mg/dL (7-18); eGFR NON AFRICAN AMERICAN 86 mL/min (90-120)
[2018-04-02 07:17] VITALS: Ht 160 cm; Wt 113.6 kg
[2018-04-02 08:48] VITALS: BP 133/74
[2018-04-02 09:15] LABS: HCG SERUM NEGATIVE (NEGATIVE)
== END 2018-04-02 13:25 | disposition home or self-care (01) ==
LOC: OBSVTIME → D.ER 14:59 → D.EDHOLD 15:30 → D.MS 15:30 → D.EDHOLD 15:30 → D.ER 15:30 → OBSVTIME 15:33 → D.EDHOLD 17:15 → D.MS 17:15 → EDSTATUS 04-02 10:30 → D.MS 04-02 13:25 → D.ER 04-02 13:25 → D.MS 04-02 13:25
PROVIDERS: Family Medicine; Surgery
DX: Z43.1 Encounter for attention to gastrostomy (principal); B34.9 Viral infection, unspecified; T85.898A Other specified complication of other internal prosthetic devices, implants and grafts, initial encounter; E11.43 Type 2 diabetes mellitus with diabetic autonomic (poly)neuropathy; K31.84 Gastroparesis; G40.909 Epilepsy, unspecified, not intractable, without status epilepticus; Z01.812 Encounter for preprocedural laboratory examination

== ENCOUNTER 2018-06-08 12:14 | Emergency (ER) | payer MEDICARE ==
[~2018-06-08] VITALS: Ht 160 cm; Wt 118.2 kg
[~2018-06-08 12:14] MED LIST changes: +LISINOPRIL PEG; -LISINOPRIL TAB 5MG; +MIRAPEX0.125 MG PEG; -MIRAPEX0.125 MG PO
[2018-06-08 12:21] VITALS: Ht 160 cm; Wt 118.2 kg
[2018-06-08] MEDS ORDERED: KEPPRA SOLU100 MG/ML PO (12:23)
[2018-06-08] MEDS ORDERED: TYLENOL W/CODEI1 TAB PO (12:24)
[2018-06-08 13:20] LABS: BASOPHILS 0.1 % (0-2); EOSINOPHILS 0 % (0-7); HEMATOCRIT 38.7 % (36.0-48.0); HEMOGLOBIN 12.6 g/dL (12-16); IMMATURE GRANULOCYTES 0.3 % (0-5); LYMPHOCYTES 17.1 % (15-50); MCH 26.8 pg (26.0-34.0); MCHC 32.6 g/dL (31.0-37.0); MCV 82.3 fL (80.0-100.0); MEAN PLATELET VOLUME 9.7 fL (7.4-10.4); MONOCYTES 5.1 % (2-11); NEUTROPHILS 77.4 % (40-80); PLATELET COUNT 285 10x3/uL (130-400); RDW 13.5 % (11.5-14.5); WBC 14.8 10x3/uL (4.8-10.8)
[2018-06-08 13:40] LABS: ALBUMIN 3.6 g/dL (3.4-5.0); ALKALINE PHOSPHATASE 100 U/L (46-116); ALT (SGPT) 29 U/L (10-68); BILIRUBIN - TOTAL 0.19 mg/dL (0.2-1.3); CALC OSMOLALITY 278 mosm/kg (275-300); CALCIUM 9.3 mg/dL (8.5-10.1); CARBON DIOXIDE 28.5 mmol/L (21.0-32.0); CHLORIDE - SERUM 100 mmol/L (98-107); CREATININE - SERUM 0.7 mg/dL (0.6-1.3); GLUCOSE 150 mg/dL (74-106); LIPASE 270 U/L (73-393); MAGNESIUM - SERUM 1.8 mg/dL (1.8-2.4); POTASSIUM - SERUM 3.5 mmol/L (3.5-5.1); PROTEIN - SERUM 8.3 g/dL (6.4-8.2); SODIUM 139 mmol/L (136-145); UREA NITROGEN 7 mg/dL (7-18); eGFR NON AFRICAN AMERICAN > 90 mL/min (90-120)
[2018-06-08 16:16] LABS: UDS - AMPHET NEGATIVE QUAL (NEGATIVE); UDS - BARB NEGATIVE QUAL (NEGATIVE); UDS - BENZO NEGATIVE QUAL (NEGATIVE); UDS - COCAINE NEGATIVE QUAL (NEGATIVE); UDS - OPIATE POSITIVE QUAL (NEGATIVE); UDS - PCP NEGATIVE QUAL (NEGATIVE); UDS - THC NEGATIVE QUAL (NEGATIVE)
[2018-06-08 16:20] LABS: APPEARANCE CLEAR (CLEAR); BILIRUBIN NEGATIVE (NEGATIVE); COLOR YELLOW (YELLOW); GLUCOSE NEGATIVE (NEGATIVE); KETONE NEGATIVE (NEGATIVE); NITRITE NEGATIVE (NEGATIVE); PROTEIN TRACE mg/dL (NEGATIVE); UROBILINOGEN NORMAL (NORMAL)
[2018-06-08 16:21] LABS: BACTERIA MODERATE /hpf (NONE SEEN); MUCUS <1+ /lpf (NONE SEEN); RED CELLS - URINE 0-5 /hpf (0-5); WHITE CELLS - URINE 0-5 /hpf (0-5)
[2018-06-08 16:26] LABS: HCG URINE NEGATIVE (NEGATIVE)
[2018-06-08 17:49] VITALS: BP 154/86
== END 2018-06-08 17:50 | disposition home or self-care (01) ==
LOC: D.ER 12:14
PROVIDERS: Family Medicine
DX: E11.43 Type 2 diabetes mellitus with diabetic autonomic (poly)neuropathy (principal); K31.84 Gastroparesis; I10 Essential (primary) hypertension

== ENCOUNTER 2018-06-23 16:30 | Day surgery (SDC) | payer MEDICARE ==
[~2018-06-23] VITALS: Ht 160 cm; Wt 114.5 kg
--- NOTE | ~2018-06-23 | CN ---
PATIENT NAME:CINDIMarch MEDICAL RECORD: [id number] : 82 LOCATION:DAbbi D.2130 ADMIT DATE: 06/24/18 ACCOUNT: [id number] CONSULTING PHYSICIAN: DONNA WINKLER MD REFERRING PHYSICIAN: BRITNI NEVAREZ MD DATE OF CONSULTATION: SURGERY CONSULTATION DATE OF CONSULTATION: 06/23/2018 CHIEF COMPLAINT: Clogged J-tube. HISTORY OF PRESENT ILLNESS: Ms. Bahena is a 37-year-old white female with diabetic gastroparesis secondary to diabetes mellitus, who has an indwelling J PEG. She says that there was some difficulty. She said that this was replaced in [place] about a month ago because the tube burst when they were manipulating it. The new tube that she has in place has been working fine and she has been doing continuous J-tube feedings through it. She said after her last J-tube feeding, she switched out the tubing and the tube feedings were no longer run. She tried to flush Coke through it and was never able to get any flow. She came to the Emergency Room for evaluation. The ER doctors have tried to manipulate it and clean it out using a brush wire with no luck at this point, they have asked me to see the patient in consultation. She currently resides in the ER. She says she has been doing well, but she has not gone to take her medications today and she has a history of seizure disorder. PAST MEDICAL HISTORY: 1. Gastroparesis. 2. Diabetes mellitus. 3. Seizure disorder. 4. Gastroesophageal reflux disease. 5. Depression. 6. Hypertension. PAST SURGICAL HISTORY: 1. Cholecystectomy. 2. Gastric pacemaker. 3. Tonsils and adenoids. 4. J PEG. MEDICATIONS: Zofran, Zyprexa, Mirapex, Dilantin, temazepam, Phenergan, Zoloft, Keppra, Tylenol with codeine No. 3, lisinopril, omeprazole, carvedilol and Novolin insulin. ALLERGIES: No known drug allergies. FAMILY HISTORY: Noncontributory. SOCIAL HISTORY: She denies any tobacco or alcohol use. REVIEW OF SYSTEMS: GENERAL: She denies fatigue or weakness. She does have a history of depression. NEUROLOGIC: She has a history of seizure disorder, but no headaches, dizziness CONSULT REPORT [id number] or numbness. CARDIOVASCULAR: Denies chest pain or shortness of breath or palpitations. INFECTIOUS DISEASE: No fevers or chills. GASTROINTESTINAL: She reports nausea with occasional vomiting. She does have some abdominal pain, but denies diarrhea or constipation. GENITOURINARY: No history of acute or chronic kidney disease. HEMATOLOGIC: No known bleeding. SKIN: No rashes or lesions. PULMONARY: Denies shortness of breath, cough or sputum. MUSCULOSKELETAL: Denies joint pain, decreased range of motion, stiffness or back pain. PHYSICAL EXAMINATION: VITAL SIGNS: Pulse 90, respirations 18, blood pressure 157/80, saturations 97%. GENERAL: She is a mildly obese female in no apparent distress. HEENT: Sclerae nonicteric. HEART: Regular rate and rhythm. LUNGS: Clear with no audible wheezing. GASTROINTESTINAL: Abdomen is soft, nontender, nondistended. She has a left upper quadrant J PEG in position with no signs of any bleeding or purulence. There is no surrounding erythema. No hepatosplenomegaly. No sign of a hernia. EXTREMITIES: No clubbing, cyanosis or edema. NEUROLOGICAL: Grossly intact. LABORATORY DATA: She got a white count 13.6, hemoglobin 12.6, platelets 256. Sodium 136, potassium 3.4, chloride 103, bicarbonate 27, BUN 10, creatinine 0.7. LFTs within normal limits except for a low bilirubin. ASSESSMENT AND PLAN: This patient with a clogged feeding tube, with diabetic gastroparesis. Multiple attempts were made to clean out the feeding tube using a 0.035 Glidewire and also the brushed wire. We eventually tried to irrigate out with Coke and finally decided just to leave some Coke in the soak overnight and to reassess in the morning. The patient was going to be admitted to the hospital overnight for observation, so the patient could be given her seizure medications IV. TRANSINT:[id number] Voice Confirmation ID: [id number] DOCUMENT ID: [id number] DONNA WINKLER MD at 0801 CC: [id number] DICTATION DATE: 06/24/181628 SET UP PERSON: 06/24/18 171 [facility] IN 06/24/18 [facility] [address] [place] [address]
--- NOTE | ~2018-06-23 | OP ---
PATIENT NAME: CINDIMarch MEDICAL RECORD: [id number] :82 LOCATION:D.M2 D.2130 ADMISSION DATE:06/24/18 SURGEON: DONNA WINKLER MD DATE OF OPERATION: 06/24/2018 PREOPERATIVE DIAGNOSES: 1. Clogged J PEG. 2. Gastroparesis. POSTOPERATIVE DIAGNOSES: 1. Clogged J PEG. 2. Gastroparesis. PROCEDURE: J PEG removal and replacement with endoscopy and fluoroscopic guidance. SURGEON: Donna Winkler MD REPORT OF PROCEDURE: The patient's indwelling J PEG was prepped and draped in sterile fashion. A wire was attempted to advance through the indwelling J PEG and under fluoroscopic guidance, I could see that I was only getting about chcf through the tube before I was meeting very firm resistance. Over the night, the patient's tube had been flushed with coke and it did not appear to have any bearing on the flow of the tube. We could not get any sort of flow past this. Multiple different wires were attempted with no success. At this point, I tried to take down the balloon, so I could pull the tube back and see if we may be able to get a better straight shot and pass a wire for a new tube, but the balloon portion of the tube was disabled and would not flow, so eventually had to cut through the tube in order to allow for takedown of the balloon and at that point, we were able to pull the tube back. I tried to advance the wire through it, at this point again had no success. At this point, we just pulled the tube completely out. I made multiple attempts to pass a Glidewire and an Amplatz wire, but could never get it to pass towards the pylorus. Eventually placed a new J PEG through the indwelling opening and again tried to pass the wire, but was never able to get it to pass through the midline or the pylorus. Eventually, I just put the balloon up in the new J PEG and rested it in position in the stomach. Endoscope was advanced through the mouth and esophagus. I grabbed the tip of the J PEG and advanced it through to the third portion of the duodenum. This appeared to rest in good position and under fluoroscopic guidance appeared to be in good position with a loop of the tube up in the stomach. The tube itself flushed easily with water. COMPLICATIONS: None. CONDITION: Stable. ANESTHESIA: General endotracheal. BLOOD LOSS: Minimal. TRANSINT:[id number] Voice Confirmation ID: [id number] DOCUMENT ID: [id number] OPERATIVE REPORT [id number] ALISTAIR PUENTE CHRISTIAN MD at 0801 CC: [id number] DICTATION DATE: 06/24/18 145 CANNERY WORKER: 06/24/18 1525 DIS IN 06/24/18 [place] [address] [place] [address]
[~2018-06-23 16:30] MED LIST changes: +KEPPRA SOLU100 MG/ML PO; +TYLENOL W/CODEI1 TAB PO
[2018-06-23 21:00] VITALS: BP 157/80
[2018-06-23 23:18] LABS: BASOPHILS 0.1 % (0-2); EOSINOPHILS 0 % (0-7); HEMATOCRIT 37.4 % (36.0-48.0); HEMOGLOBIN 12.6 g/dL (12-16); IMMATURE GRANULOCYTES 0.4 % (0-5); LYMPHOCYTES 18.2 % (15-50); MCH 27.3 pg (26.0-34.0); MCHC 33.7 g/dL (31.0-37.0); MCV 81.1 fL (80.0-100.0); MEAN PLATELET VOLUME 9.6 fL (7.4-10.4); MONOCYTES 7.3 % (2-11); PLATELET COUNT 256 10x3/uL (130-400); RBC 4.61 10x6/uL (4.00-5.40); RDW 13.7 % (11.5-14.5); WBC 13.6 10x3/uL (4.8-10.8)
[2018-06-23 23:33] LABS: ALBUMIN 3.6 g/dL (3.4-5.0); ALKALINE PHOSPHATASE 97 U/L (46-116); ALT (SGPT) 34 U/L (10-68); BILIRUBIN - TOTAL 0.19 mg/dL (0.2-1.3); CALC OSMOLALITY 273 mosm/kg (275-300); CALCIUM 8.9 mg/dL (8.5-10.1); CARBON DIOXIDE 27.2 mmol/L (21.0-32.0); CHLORIDE - SERUM 103 mmol/L (98-107); CREATININE - SERUM 0.7 mg/dL (0.6-1.3); GLUCOSE 121 mg/dL (74-106); POTASSIUM - SERUM 3.4 mmol/L (3.5-5.1); PROTEIN - SERUM 8.4 g/dL (6.4-8.2); SODIUM 137 mmol/L (136-145); UREA NITROGEN 10 mg/dL (7-18); eGFR NON AFRICAN AMERICAN > 90 mL/min (90-120)
[2018-06-24] MEDS ORDERED: LISINOPRIL5 MG PO (02:53)
[2018-06-24] MEDS ORDERED: OMEPRAZOLE20 M1 PO (02:55)
[2018-06-24] MEDS ORDERED: COREG12.5 MG PO (02:59)
[2018-06-24 03:52] VITALS: BP 140/87; BMI 44.7
[2018-06-24 05:40] VITALS: BP 140/87
[2018-06-24 09:38] VITALS: BP 150/99
[2018-06-24 14:12] VITALS: Ht 160 cm; Wt 114.5 kg
[2018-06-24 15:50] VITALS: BP 127/79
== END 2018-06-24 20:23 | disposition home or self-care (01) ==
LOC: D.OPS 16:30 → D.ER 16:30 → D.M2 06-24 00:07 → D.EDHOLD 06-24 00:07 → D.ER 06-24 00:07 → D.EDHOLD 06-24 01:30 → D.M2 06-24 01:30 → D.ER 06-24 02:40 → EDSTATUS 06-24 10:45 → D.M2 06-24 20:23 → D.OPS 06-24 20:23
PROVIDERS: Family Medicine; Surgery
PROC: 0D2DXUZ Change Feeding Device in Lower Intestinal Tract, External Approach (ICD-10-PCS; principal; 2018-06-24 10:45)
DX: K94.13 Enterostomy malfunction (principal); E11.40 Type 2 diabetes mellitus with diabetic neuropathy, unspecified; E11.43 Type 2 diabetes mellitus with diabetic autonomic (poly)neuropathy; K31.84 Gastroparesis; G40.909 Epilepsy, unspecified, not intractable, without status epilepticus; I10 Essential (primary) hypertension; F32.9 Major depressive disorder, single episode, unspecified; R51 Headache; Y83.8 Other surgical procedures as the cause of abnormal reaction of the patient, or of later complication, without mention of misadventure at the time of the procedure

== ENCOUNTER → 2018-06-30 14:21 | Outpatient (CLI) | payer MEDICARE ==
[2018-06-24 14:12] VITALS: BMI 44.7
--- NOTE | ~2018-06-30 | HEMODYNAMI ---
PATIENT:ALISTAIR PUENTE MEDICAL RECORD: [id number] : 82 LOCATION:DIRA ADMISSION DATE: 06/30/18 Generatedon:06/30/201816:36 Patient name: ALISTAIR PUENTE Patient #: [id number] SSN: : 1980 Date of study: 06/30/2018 Page: Of Hemodynamic Procedure Report Patient Data Patient Demographics Procedure consent was obtained First Name: MARCH Gender: Female Last Name: CINDI : 1980 Middle Initial: D Age: 37 year(s) Patient #: [id number] Race: Unknown Additional ID: [id number] Contact details Address: [address] [place] [address] State: [place] City: [place] Zip code: [address] Past Medical History Allergies: No known allergies Admission Admission Data Admission Date: 06/30/2018 Admission Time: 14:21 Procedure Procedure Types Cath Procedure Peripheral Cath Diagnostic Procedure Miscellaneous Procedure Description Procedure Date Procedure Date: 06/30/2018 Procedure Start Time: 16:15 Procedure Staff Name Function Tone Vazquez MD Performing Physician Abhinav Schultz RT Monitor Tricia Saleh RT Scrub Anne Martinez RN Nurse Procedure Data Cath Procedure Fluoroscopy Diagnostic fluoroscopy Total fluoroscopy Time: 4.3 time: 4.3 min min Diagnostic fluoroscopy Total fluoroscopy dose: 78 dose: 78 mGy mGy Contrast Material Contrast Material Type Amount (ml) Isovue 370 0 Hemodynamics Rest Pre Cath Intra NCS Post Cath Procedure Log Time Note 16:00:23 Abhinav Schultz RT (R) (CV) sent for patient. Start room use. 16:00:32 Time tracking: Regular hours (M-F 7:00 - 5:00) 16:00:40 Patient received from Other to IR Alert and oriented. Tansferred to table in Supine position. 16:00:44 Signed procedure consent form obtained from patient. 16:00:46 Pre-procedure instructions explained to patient. 16:00:47 Pre-op teaching completed and patient verbalized understanding. 16:01:11 Use device set IR Diagnostic 16:01:12 Sterile Angiographic Pack opened to sterile field. 16:01:13 Bag Decanter () opened to sterile field. 16:01:36 Patient allergic to No known allergies 16:01:48 Left abdomen area was prepped with chlora-prep and draped in sterile fashion 16:11:05 Physician arrived 16:11:06 --------ALL STOP TIME OUT------ 16:11:13 Left abdomen site verified by team. 16:11:19 Sedation plan: IV Moderate Sedation Medication:Lidocaine 16:15:19 Procedure started. 16:15:20 Full Disclosure recording started 16:15:29 Local anesthetic to Abdominal area with Lidocaine 1% by Tone Vazquez MD.INITIAL ACCESS ONLY 16:28:09 JEJUNAL 22Fr 45cm Tube (454936) opened to sterile field. 16:28:09 AMPLATZ Super stiff 180cm wire ([id number]) opened to sterile field. 16:29:13 Cook Fuentes 1 7Fr Guide sheath opened to sterile field. 16:34:48 Procedure ended.(Physican Out) 16:35:02 Fluoroscopy time 04.30 minutes. 16:35:08 Fluoroscopy dose: 78 mGy 16:35:08 Flurop Dose total: 78 16:35:12 Contrast amount:Isovue 370 0ml. 16:35:15 Insertion/operative site no bleeding no hematoma. 16:35:21 Post Abdominal area:stable 16:35:24 Procedure and supply charges have been captured, reviewed, submitted and are correct. 16:35:38 Report given to Other. 16:35:48 Patient transfered to Other with Ambulatory. Device Usage Item Name Manufacture Quantity Catalog Hospital Part Current Minimal Lot# / Number Charge Number Stock Stock Serial# Code Sterile Cardinal 1 [id number] 5 Angiographic Health Pack Bag Decanter Microtek 1 [id number] 97915 071119 5 () Medical Inc. JEJUNAL 22Fr [place]ard 1 677354 068330 183732 5 45cm Tube [employer] ([id number]) AMPLATZ [place] 1 [id number] 985658 572054 5 [id number] Super stiff Scientific 180cm wire ([id number]) Cook Fuentes [address] [place] [address] [id number] 702217 245327 5 7Fr Guide sheath Signature Audit [place] Stage Time Signature Unsigned Intra-Procedure 06/30/2018 Abhinav 4:36:56 PM Marion RT (Vu) (CV) Signatures Monitor : Abhinav Signature : Marion RT Date : Time : [address] [address]
[~2018-06-30 14:21] MED LIST changes: +LISINOPRIL5 MG PO; +OMEPRAZOLE20 M1 PO
== END | disposition home or self-care (01) ==
LOC: D.SP 14:00
DX: T85.598A Other mechanical complication of other gastrointestinal prosthetic devices, implants and grafts, initial encounter (principal)

== ENCOUNTER 2018-07-05 13:28 | Inpatient (IN) | payer MEDICARE ==
[2018-07-05] VITALS (7 sets, daily range): BP systolic 134–177; BP diastolic 59–91
[~2018-07-05] VITALS: Ht 160 cm; Wt 116.1 kg
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
--- NOTE | ~2018-07-05 | HEMODYNAMI ---
PATIENT:ALISTAIR PUENTE MEDICAL RECORD: [id number] : 82 [facility]MS [id number] ADMISSION DATE: 07/06/18 Generatedon:07/06/201811:35 Patient name: ALISTAIR PUENTE Patient #: [id number] SSN: : 1980 Date of study: 07/06/2018 Page: Of Hemodynamic Procedure Report Patient Data Patient Demographics Procedure consent was obtained First Name: MARCH Gender: Female Last Name: CINDI : 1980 Middle Initial: D Age: 37 year(s) Patient #: [id number] Race: Unknown Additional ID: [id number] Contact details Address: [address] [place] [address] State: [place] City: [place] Zip code: [address] Past Medical History Allergies: No known allergies Admission Admission Data Admission Date: 07/06/2018 Admission Time: 9:21 Room #: D.2205 Height (in.): 63 BSA: 2.15 (m2) Height (cm.): 160.02 BMI: 45.35 (kg/m2) Weight (lbs.): 256 Weight (kg.): 116.12 Procedure Procedure Types Cath Procedure Peripheral Cath Diagnostic Procedure Cath Peripheral Gastric G J Tube Replacement Procedure Description Procedure Date Procedure Date: 07/06/2018 Procedure Start Time: 11:02 Procedure Staff Name Function Erasto Chinchilla MD Performing Physician Sol Kenny RT Spanish Translator Criss Molina RN Nurse Anne Martinez RN Nurse Abhinav Schultz RT Scrub Procedure Data Cath Procedure Fluoroscopy Diagnostic fluoroscopy Total fluoroscopy Time: 6.7 time: 6.7 min min Diagnostic fluoroscopy Total fluoroscopy dose: 284 dose: 284 mGy mGy Contrast Material Contrast Material Type Amount (ml) Isovue 300 55 Diagnostic catheters Device Type Used For End Catheter Placement Merit Impress KA 2 5Fr 40CM catheter ([id number]) Hemodynamics Rest BSA: 2.15 (m2) O2 Consumption: Estimated: 292.4 (ml/min) O2 Consumption indexed: Estimated:136 (ml/min/m) Pre Cath Intra NCS Post Cath Procedure Log Time Note 10:33:54 Patient Weight : 256 lbs 10:34:02 Patient Height : 63 inches 10:35:16 Use device set IR Diagnostic 10:35:18 Sterile Angiographic Pack opened to sterile field. 10:35:18 Bag Decanter () opened to sterile field. 10:43:04 Time tracking: Regular hours (M-F 7:00 - 5:00) 10:47:04 JEJUNAL 22Fr 45cm Tube ([id number]) opened to sterile field. 10:47:21 Patient received from Med/Surg to IR Alert and oriented. Tansferred to table in Supine position. 10:47:27 Signed procedure consent form obtained from patient. 10:47:35 H&P Date Dictated: 07/06/2018 Within 30 days and on chart.. 10:47:37 Pre-procedure instructions explained to patient. 10:47:38 Pre-op teaching completed and patient verbalized understanding. 10:47:41 Family in patients room. 10:47:44 Patient NPO since Midnight. 10:47:52 Is the patient allergic to Iodine/contrast media? No. 10:47:57 - 10:48:09 Left abdomen area was prepped with chlora-prep and draped in sterile fashion 10:58:14 Physician arrived 10:59:45 GLIDE WIRE Super Stiff Angled 260cm ([id number]) opened to sterile field. 11:00:34 Final Timeout: patient, procedure, and site verified with staff and physician. All members of the team are in agreement. 11:01:18 A Nexidia Impress KA 2 5Fr 40CM catheter ([id number]) was advanced over the wire and used for . 11:02:00 Procedure started. 11:02:01 Full Disclosure recording started 11:04:17 GLIDE CATHETER 5FR ANGLED 65cm (CG507) opened to sterile field. 11:10:17 RO[place] .035 145 glide wire (R07699) opened to sterile field. 11:17:04 GLIDE WIRE ADVANTAGE 260cm (HE4167) opened to sterile field. 11:28:14 22fr g j tube placed 11:28:27 Procedure ended.(Physican Out) 11:29:28 Fluoroscopy time 06.70 minutes. 11:29:36 Fluoroscopy dose: 284 mGy 11:29:36 Flurop Dose total: 284 11:30:51 Contrast amount:Isovue 300 55ml. 11:31:00 Procedure and supply charges have been captured, reviewed, submitted an d are correct. 11:34:46 Report given to Med/Surg. Device Usage Item Name Manufacture Quantity Catalog Hospital Part Current Minimal Lot# / Number Charge Number Stock Stock Serial# Code Sterile Cardinal 1 [id number] 5 Angiographic Health Pack Bag Decanter Microtek 216908 38564 [id number] 5 () [employer] JEJUNAL 22Fr [place] 1 [id number] 295130 372001 5 45cm Tube KOEZY (243585) GLIDE WIRE Terumo 1 [id number] [id number] 606866 267279 5 Super Stiff Angled 260cm (UD1757) Merit Merit 1 [id number] 290777 525145 5 Impress KA 2 Medical 5Fr 40CM catheter ([id number]) GLIDE Terumo 1 CG507 832330 126829 5 CATHETER 5FR ANGLED 65cm (CG507) [facility] 1 C83209 298142 443849 395326 5 [id number] .035 145 glide wire (W94798) GLIDE WIRE Terumo 1 KC6491 755899 038429 5 ADVANTAGE 260cm (QK4753) Signature Audit [place] Stage Time Signature Unsigned Intra-Procedure 07/06/2018 Sol Kenny 11:35:00 AM RT(R) [facility] [address] [place] [address]
[2018-07-05 20:34] LABS: BASOPHILS 0.2 % (0-2); EOSINOPHILS 0 % (0-7); HEMATOCRIT 39.3 % (36.0-48.0); HEMOGLOBIN 12.6 g/dL (12-16); IMMATURE GRANULOCYTES 0.4 % (0-5); LYMPHOCYTES 22.6 % (15-50); MCH 26.5 pg (26.0-34.0); MCHC 32.1 g/dL (31.0-37.0); MCV 82.6 fL (80.0-100.0); MEAN PLATELET VOLUME 9.5 fL (7.4-10.4); MONOCYTES 6.9 % (2-11); NEUTROPHILS 69.9 % (40-80); PLATELET COUNT 273 10x3/uL (130-400); RBC 4.76 10x6/uL (4.00-5.40); WBC 11.1 10x3/uL (4.8-10.8)
[2018-07-05 20:49] LABS: ALBUMIN 3.6 g/dL (3.4-5.0); ALKALINE PHOSPHATASE 104 U/L (46-116); ALT (SGPT) 41 U/L (10-68); CALC OSMOLALITY 281 mosm/kg (275-300); CALCIUM 8.8 mg/dL (8.5-10.1); CARBON DIOXIDE 28.3 mmol/L (21.0-32.0); CHLORIDE - SERUM 105 mmol/L (98-107); CREATININE - SERUM 0.8 mg/dL (0.6-1.3); GLUCOSE 102 mg/dL (74-106); POTASSIUM - SERUM 4.1 mmol/L (3.5-5.1); PROTEIN - SERUM 7.7 g/dL (6.4-8.2); SODIUM 142 mmol/L (136-145); UREA NITROGEN 9 mg/dL (7-18); eGFR NON AFRICAN AMERICAN 86 mL/min (90-120)
[2018-07-06 02:34] VITALS: BP 148/75
[2018-07-06 03:47] VITALS: BP 148/73; BMI 45.4
[2018-07-06 05:55] LABS: BASOPHILS 0.3 % (0-2); EOSINOPHILS 0.1 % (0-7); HEMATOCRIT 36.8 % (36.0-48.0); HEMOGLOBIN 11.7 g/dL (12-16); IMMATURE GRANULOCYTES 0.4 % (0-5); MCH 26.7 pg (26.0-34.0); MCHC 31.8 g/dL (31.0-37.0); MCV 83.8 fL (80.0-100.0); MEAN PLATELET VOLUME 9.7 fL (7.4-10.4); NEUTROPHILS 68.2 % (40-80); PLATELET COUNT 263 10x3/uL (130-400); RBC 4.39 10x6/uL (4.00-5.40); RDW 14.3 % (11.5-14.5); WBC 11.2 10x3/uL (4.8-10.8)
[2018-07-06 06:13] LABS: CALC OSMOLALITY 283 mosm/kg (275-300); CALCIUM 8.4 mg/dL (8.5-10.1); CHLORIDE - SERUM 107 mmol/L (98-107); CREATININE - SERUM 0.8 mg/dL (0.6-1.3); GLUCOSE 117 mg/dL (74-106); POTASSIUM - SERUM 3.6 mmol/L (3.5-5.1); SODIUM 143 mmol/L (136-145); UREA NITROGEN 7 mg/dL (7-18); eGFR NON AFRICAN AMERICAN 86 mL/min (90-120)
[2018-07-06 06:28] VITALS: BP 115/60; BP 134/78
[2018-07-06 08:32] VITALS: BP 127/77
[2018-07-06 16:51] VITALS: BP 148/81
[2018-07-06 19:44] VITALS: BP 149/85
[2018-07-07 00:54] VITALS: BP 151/90
[2018-07-07 04:00] VITALS: BP 150/95
[2018-07-07 05:30] LABS: BASOPHILS 0.2 % (0-2); EOSINOPHILS 0 % (0-7); HEMATOCRIT 37.5 % (36.0-48.0); HEMOGLOBIN 11.8 g/dL (12-16); IMMATURE GRANULOCYTES 0.2 % (0-5); LYMPHOCYTES 23.7 % (15-50); MCH 26.5 pg (26.0-34.0); MCHC 31.5 g/dL (31.0-37.0); MCV 84.3 fL (80.0-100.0); MEAN PLATELET VOLUME 9.6 fL (7.4-10.4); NEUTROPHILS 66.9 % (40-80); PLATELET COUNT 235 10x3/uL (130-400); RBC 4.45 10x6/uL (4.00-5.40); RDW 14.1 % (11.5-14.5); WBC 8.9 10x3/uL (4.8-10.8)
[2018-07-07 05:50] LABS: ALBUMIN 3.2 g/dL (3.4-5.0); ALKALINE PHOSPHATASE 96 U/L (46-116); ALT (SGPT) 39 U/L (10-68); BILIRUBIN - TOTAL 0.26 mg/dL (0.2-1.3); CALCIUM 8.3 mg/dL (8.5-10.1); CARBON DIOXIDE 29.9 mmol/L (21.0-32.0); CHLORIDE - SERUM 106 mmol/L (98-107); GLUCOSE 103 mg/dL (74-106); POTASSIUM - SERUM 3.4 mmol/L (3.5-5.1); PROTEIN - SERUM 7.4 g/dL (6.4-8.2); SODIUM 141 mmol/L (136-145)
[2018-07-07 05:56] LABS: CALC OSMOLALITY 277 mosm/kg (275-300); CREATININE - SERUM 0.5 mg/dL (0.6-1.3); UREA NITROGEN 4 mg/dL (7-18); eGFR NON AFRICAN AMERICAN > 90 mL/min (90-120)
[2018-07-07 08:45] VITALS: BP 137/82
[2018-07-07 10:36] VITALS: Ht 160 cm; Wt 116.1 kg
[2018-07-07 12:36] VITALS: BP 142/85
[2018-07-07 16:36] VITALS: BP 141/82
== END 2018-07-07 18:11 | disposition home or self-care (01) | DRG 394 ==
LOC: D.ER 13:28 → D.MS 21:57 → OBSVTIME 21:57 → D.MS 21:57
PROVIDERS: Family Medicine; Family Medicine Adult Medicine; General Practice
PROC: 0D2DXUZ Change Feeding Device in Lower Intestinal Tract, External Approach (ICD-10-PCS; principal; 2018-07-06 11:00)
DX: K94.13 Enterostomy malfunction (principal); F68.10 Factitious disorder imposed on self, unspecified; Y83.8 Other surgical procedures as the cause of abnormal reaction of the patient, or of later complication, without mention of misadventure at the time of the procedure; E11.43 Type 2 diabetes mellitus with diabetic autonomic (poly)neuropathy; K31.84 Gastroparesis; Z79.4 Long term (current) use of insulin; F60.3 Borderline personality disorder; G40.909 Epilepsy, unspecified, not intractable, without status epilepticus; G47.00 Insomnia, unspecified

== ENCOUNTER 2018-07-17 12:57 | Emergency (ER) | payer MEDICARE ==
[~2018-07-17] VITALS: Ht 160 cm; Wt 116.1 kg
--- NOTE | ~2018-07-17 | HEMODYNAMI ---
PATIENT:ALISTAIR PUENTE MEDICAL RECORD: [id number] : 82 LOCATION:D.ER ADMISSION DATE: 07/17/18 Generatedon:07/17/201816:58 Patient name: ALISTAIR PUENTE Patient #: [id number] SSN: : 1980 Date of study: 07/17/2018 Page: Of Hemodynamic Procedure Report Patient Data Patient Demographics Procedure consent was obtained First Name: MARCH Gender: Female Last Name: CINDI : 1980 Middle Initial: D Age: 37 year(s) Patient #: [id number] Race: Unknown Additional ID: [id number] Contact details Address: [address] [place] [address] State: [place] City: [place] Zip code: [address] Past Medical History Allergies: No known allergies Admission Admission Data Admission Date: 07/17/2018 Admission Time: 12:57 Procedure Procedure Types Cath Procedure Peripheral Cath Diagnostic Procedure Gastric G J Tube Replacement Procedure Description Procedure Date Procedure Date: 07/17/2018 Procedure Start Time: 16:29 Procedure Staff Name Function Erasto Chinchilla MD Performing Physician Abhinav Schultz RT Monitor Tricia Saleh RT Scrub Juan Rodríguez RN Nurse Procedure Data Cath Procedure Fluoroscopy Diagnostic fluoroscopy Total fluoroscopy Time: 4.9 time: 4.9 min min Diagnostic fluoroscopy Total fluoroscopy dose: 205 dose: 205 mGy mGy Contrast Material Contrast Material Type Amount (ml) Isovue 300 25 Diagnostic catheters Device Type Used For End Catheter Placement Merit Impress KA 2 5Fr 40CM catheter ([id number]) Merit Impress KA2 5Fr 65CM catheter ([id number]) Hemodynamics Rest Pre Cath Intra NCS Post Cath Procedure Log Time Note 15:26:46 Abhinav Schultz RT (R) (CV) sent for patient. Start room use. 15:26:54 Time tracking: Regular hours (M-F 7:00 - 5:00) 15:27:03 Patient received from ED to IR Alert and oriented. Tansferred to table in Supine position. 15:27:06 Correct patient and procedure confirmed by team. 15::09 Signed procedure consent form obtained from patient. 15:27:11 Full Disclosure recording started 15:27:11 - 15:27:13 Pre-op teaching completed and patient verbalized understanding. 15:27:14 Pre-procedure instructions explained to patient. 15:27:24 Family in waiting room. 15:27:28 Is the patient allergic to Iodine/contrast media? No. 15:27:36 Patient allergic to No known allergies 15:27:41 Alarms reviewed by R. N. 15::41 Sharps counted by scrub and verified by R.N. 15:27:48 Left abdomen area was prepped with chlora-prep and draped in sterile fashion 16:28:06 Use device set IR Diagnostic 16:28:08 Bag Decanter (2002S) opened to sterile field. 16:28:09 Sterile Angiographic Pack opened to sterile field. 16:29:29 Physician arrived 16:29:30 --------ALL STOP TIME OUT------ 16:29:30 Final Timeout: patient, procedure, and site verified with staff and physician. All members of the team are in agreement. 16:29:33 Left abdomen site verified by team. 16:29:42 Sedation plan: Local Anesthetic Medication:Lidocaine 16:29:46 Procedure started. 16:31:25 GLIDE WIRE Super Stiff Angled 260cm (LO9129) opened to sterile field. 16:31:28 A Merit Impress KA 2 5Fr 40CM catheter ([id number]) was advanced over the wire and used for . 16:31:39 JEJUNAL 22Fr 45cm Tube (258569) opened to sterile field. 16:36:11 A Merit Impress KA2 5Fr 65CM catheter (66081HT4) was advanced over the wire and used for . 16:37:[address] .035 145 glide wire (V67364) opened to sterile field. 16:56:00 Procedure ended.(Physican Out) 16:56:22 Fluoroscopy time 04.90 minutes. 16:56:28 Fluoroscopy dose: 205 mGy 16:56:28 Flurop Dose total: 205 16:56:59 Contrast amount:Isovue 300 25ml. 16:57:01 Sharps counted by scrub and verified by R.N. 16:57:02 Insertion/operative site no bleeding no hematoma. 16:57:09 Post Abdominal area:stable 16:57:22 Procedure and supply charges have been captured, reviewed, submitted an d are correct. 16:57:25 Report given to ED. 16:57:29 Patient transfered to ED with Stretcher. Device Usage Item Name Manufacture Quantity Catalog Hospital Part Current Minimal Lot# / Number Charge Number Stock Stock Serial# Code Bag Decanter Microtek 1 [id number] [id number] 5 () Medical Inc. Sterile Cardinal 1 [id number] 845267 440447 5 Angiographic Health Pack GLIDE WIRE Terumo 1 [id number] 322354 809330 939471 5 Super Stiff Angled 260cm (XH6895) Merit Merit 1 [id number] 529680 900049 5 Impress KA 2 Medical 5Fr 40CM catheter ([id number]) JEJUNAL 22Fr [facility] 1 0- 783869 190430 351227 5 45cm Rostelecom (824859) Merit Merit 1 [id number] 412626 379013 5 Impress KA2 Medical 5Fr 65CM catheter (22127BZ2) [facility] 1 [id number] 821972 986755 707596 5 [id number] .035 145 glide wire (S24021) Signature Audit [place] Stage Time Signature Unsigned Intra-Procedure 07/17/2018 Abhinav 4:58:21 PM Juanitoield RT (R) (CV) Signatures Monitor : Abhinav Signature : Marion RT Date : Time : [facility] [address] [place] [address]
[2018-07-17 13:08] VITALS: Ht 160 cm; Wt 116.1 kg
[2018-07-17 17:43] VITALS: BP 164/95
== END 2018-07-17 17:44 | disposition home or self-care (01) ==
LOC: D.ER 12:57
DX: K94.29 Other complications of gastrostomy (principal); E11.43 Type 2 diabetes mellitus with diabetic autonomic (poly)neuropathy; K31.84 Gastroparesis; I10 Essential (primary) hypertension

== ENCOUNTER 2018-07-23 09:32 | Day surgery (SDC) | payer MEDICARE ==
[~2018-07-23] VITALS: Ht 160 cm; Wt 116.4 kg
--- NOTE | ~2018-07-23 | OP ---
PATIENT NAME: CINDIMarch MEDICAL RECORD: [id number] :82 LOCATION:D.MS [facility].2228 ADMISSION DATE: SURGEON: JEFFREY WINKLER MD DATE OF OPERATION: 07/23/2018 PREOPERATIVE DIAGNOSES: 1. Gastroparesis. 2. Seizure disorder. 3. Diabetes mellitus. 4. Gastroesophageal reflux disease. 5. Depression. 6. Hypertension. 7. Multiple personality disorder. POSTOPERATIVE DIAGNOSES: 1. Gastroparesis. 2. Seizure disorder. 3. Diabetes mellitus. 4. Gastroesophageal reflux disease. 5. Depression. 6. Hypertension. 7. Multiple personality disorder. PROCEDURES: 1. Exchange of J-PEG to a G-tube (20 Prydeinig). 2. Laparoscopic J-tube placement (20-Prydeinig) red rubber catheter. SURGEON: Jeffrey Winkler MD REPORT OF PROCEDURE: The patient's indwelling J-PEG was removed and a new G-tube was inserted. A total of 8 mL of saline was inserted through the balloon, it was pulled back into place. The patient had a Veress needle then inserted in the right upper quadrant and the abdomen was insufflated. A 5-mm Visiport trocar was inserted in the right lateral abdomen. Once inside, we could see the Veress needle and there was no sign of any injury to bowel or surrounding structures, so this was removed. A 5-mm trocar was then placed in the right upper quadrant and a 11-mm trocar was placed in the right lower quadrant. The small bowel was run to the ligament of Treitz and we came down about 10-15 cm. At this point, we elevated a loop of the small bowel towards the anterior abdominal wall, it would lay there, and it seemed to be very amenable to this position into the abdomen. A skin incision was made in the left lateral abdomen and through this we advanced a 20-Prydeinig red rubber catheter in which we had made a few extra openings and cut off the distal tip. A small opening was then made in the antimesenteric side of the small bowel and the red rubber catheter was inserted in this. We then used multiple sutures to adhere this bowel up to the anterior abdominal wall. A 3-0 silk was used as a pursestring around the enterotomy and the remainder of the abdominal wall to bowel sutures were performed with either 3-0 Vicryl or 0 Polydek. This appeared to rest up against the anterior abdominal wall well. Some of the distal aspect of the small bowel was actually sutured to the anterior abdominal wall as well to take some tension off of the area. At the conclusion of the case, we were able to flush the J-tube with normal saline. There was no sign of a leak and it flushed and aspirated easily. There was no sign of any leakage from the tube itself or from the skin incision site. At this point, the ports and insufflation were removed after the 11-mm trocar site had been closed with a 0 OPERATIVE REPORT [id number] JYOTI Vicryl using a Robert-Archana suture passer device. The catheter was then sutured into place with interrupted 2-0 nylons times 2. The wounds were then infused with a total of 10 mL of 0.25% Marcaine with epinephrine and then closed with subcutaneous 5-0 Monocryl. COMPLICATIONS: None. CONDITION: Stable. ANESTHESIA: General endotracheal and local. BLOOD LOSS: Minimal. TRANSINT:[id number] Voice Confirmation ID: [id number] DOCUMENT ID: [id number] JEFFREY WINKLER MD at 1110 CC: IVANNA HELLER [id number] DICTATION DATE: 07/23/18 1519 TELEPHONE MECHANIC: 07/23/18 1551 [facility] [address] [place] [address]
[2018-07-23 10:11] LABS: BASOPHILS 0.4 % (0-2); EOSINOPHILS 0.1 % (0-7); HEMATOCRIT 39.4 % (36.0-48.0); IMMATURE GRANULOCYTES 0.4 % (0-5); LYMPHOCYTES 21.5 % (15-50); MCH 27.1 pg (26.0-34.0); MCV 82.3 fL (80.0-100.0); MEAN PLATELET VOLUME 9.5 fL (7.4-10.4); MONOCYTES 6.1 % (2-11); NEUTROPHILS 71.5 % (40-80); PLATELET COUNT 254 10x3/uL (130-400); RBC 4.79 10x6/uL (4.00-5.40); RDW 14.2 % (11.5-14.5)
[2018-07-23 10:30] LABS: CALC OSMOLALITY 277 mosm/kg (275-300); CALCIUM 8.9 mg/dL (8.5-10.1); CARBON DIOXIDE 25.8 mmol/L (21.0-32.0); CHLORIDE - SERUM 102 mmol/L (98-107); CREATININE - SERUM 0.8 mg/dL (0.6-1.3); POTASSIUM - SERUM 3.6 mmol/L (3.5-5.1); SODIUM 138 mmol/L (136-145); UREA NITROGEN 8 mg/dL (7-18); eGFR NON AFRICAN AMERICAN 86 mL/min (90-120)
[2018-07-23 10:34] LABS: GLUCOSE 171 mg/dL (74-106)
[2018-07-23 11:27] VITALS: BP 132/86; BMI 45.4
[2018-07-23 11:43] LABS: HCG URINE NEGATIVE (NEGATIVE)
[2018-07-23 16:30] VITALS: BP 143/94
[2018-07-23 20:00] VITALS: BP 169/91
[2018-07-24] VITALS: BP 118/68
[2018-07-24 02:47] VITALS: BP 169/91; Ht 160 cm; Wt 116.4 kg
[2018-07-24 04:00] VITALS: BP 128/79
[2018-07-24] MEDS ORDERED: HYDROCODONE-APA1 TAB PO (08:47)
== END 2018-07-24 12:18 | disposition home or self-care (01) ==
LOC: D.OPS 09:32 → D.MS 09:32 → D.PAN 12:15 → D.OPS 12:15 → D.MS 19:18 → D.OPS 07-24 12:18
PROVIDERS: Surgery
DX: K31.84 Gastroparesis (principal); K94.19 Other complications of enterostomy; G40.909 Epilepsy, unspecified, not intractable, without status epilepticus; E11.9 Type 2 diabetes mellitus without complications; K21.9 Gastro-esophageal reflux disease without esophagitis; F32.9 Major depressive disorder, single episode, unspecified; I10 Essential (primary) hypertension; F44.81 Dissociative identity disorder; Z01.812 Encounter for preprocedural laboratory examination

== ENCOUNTER 2018-09-01 17:41 | Emergency (ER) | payer MEDICARE ==
[~2018-09-01] VITALS: Ht 160 cm; Wt 116.4 kg
[2018-09-01 17:57] VITALS: Ht 160 cm; Wt 116.4 kg
[2018-09-01 18:44] LABS: BASOPHILS 0.3 % (0-2); EOSINOPHILS 0 % (0-7); HEMATOCRIT 37.5 % (36.0-48.0); HEMOGLOBIN 12.1 g/dL (12-16); IMMATURE GRANULOCYTES 0.3 % (0-5); LYMPHOCYTES 21.3 % (15-50); MCH 27.1 pg (26.0-34.0); MCHC 32.3 g/dL (31.0-37.0); MCV 83.9 fL (80.0-100.0); MEAN PLATELET VOLUME 9.4 fL (7.4-10.4); MONOCYTES 7.7 % (2-11); NEUTROPHILS 70.4 % (40-80); RBC 4.47 10x6/uL (4.00-5.40); RDW 14.1 % (11.5-14.5); WBC 11.6 10x3/uL (4.8-10.8)
[2018-09-01 18:48] LABS: PLATELET COUNT 347 10x3/uL (130-400)
[2018-09-01 18:49] LABS: APPEARANCE CLEAR (CLEAR); BILIRUBIN NEGATIVE (NEGATIVE); COLOR STRAW (YELLOW); GLUCOSE NEGATIVE (NEGATIVE); KETONE NEGATIVE (NEGATIVE); NITRITE NEGATIVE (NEGATIVE); PROTEIN NEGATIVE (NEGATIVE); SPECIFIC GRAVITY 1.005 (1.005-1.020); UROBILINOGEN NORMAL (NORMAL)
[2018-09-01 18:50] LABS: WHITE CELLS - URINE OCC /hpf (0-5)
[2018-09-01 18:51] LABS: AMORPHOUS SEDIMENT <1+ /lpf (NONE SEEN); BACTERIA MANY /hpf (NONE SEEN); EPITHELIAL CELLS 0-5 /hpf (0-5); MUCUS <1+ /lpf (NONE SEEN)
[2018-09-01 18:57] LABS: ALBUMIN 3.6 g/dL (3.4-5.0); ALKALINE PHOSPHATASE 118 U/L (46-116); ALT (SGPT) 35 U/L (10-68); BILIRUBIN - TOTAL 0.17 mg/dL (0.2-1.3); CALC OSMOLALITY 276 mosm/kg (275-300); CALCIUM 8.9 mg/dL (8.5-10.1); CARBON DIOXIDE 29.8 mmol/L (21.0-32.0); CHLORIDE - SERUM 105 mmol/L (98-107); CREATININE - SERUM 0.8 mg/dL (0.6-1.3); POTASSIUM - SERUM 3.9 mmol/L (3.5-5.1); PROTEIN - SERUM 8.2 g/dL (6.4-8.2); SODIUM 139 mmol/L (136-145); UREA NITROGEN 8 mg/dL (7-18); eGFR NON AFRICAN AMERICAN 85 mL/min (90-120)
[2018-09-01 19:01] LABS: GLUCOSE 114 mg/dL (74-106)
[2018-09-01 20:30] VITALS: BP 161/100
[2018-09-24] MEDS ORDERED: GLUCOPHAGE500 MG PO (12:36)
[2018-09-25] MEDS ORDERED: NORCO 10-325 TA1 TAB PO (10:48)
== END 2018-09-01 20:30 | disposition home or self-care (01) ==
LOC: D.ER 17:41
PROVIDERS: Family Medicine
DX: K94.29 Other complications of gastrostomy (principal); G40.909 Epilepsy, unspecified, not intractable, without status epilepticus; E11.9 Type 2 diabetes mellitus without complications; I10 Essential (primary) hypertension; K21.9 Gastro-esophageal reflux disease without esophagitis

== ENCOUNTER → 2018-09-02 10:19 | Outpatient (CLI) | payer MEDICARE ==
[2018-09-01 17:57] VITALS: BMI 45.4
[~2018-09-02 10:19] MED LIST changes: +NORCO 10-325 TA1 TAB PO
== END | disposition home or self-care (01) ==
LOC: D.RAD 10:19
DX: K31.84 Gastroparesis (principal)

== ENCOUNTER 2018-09-02 11:23 | Emergency (ER) | payer MEDICARE ==
[~2018-09-02] VITALS: Ht 160 cm; Wt 115.9 kg
[~2018-09-02 11:23] MED LIST changes: -NORCO 10-325 TA1 TAB PO
[2018-09-02 11:36] VITALS: Ht 160 cm; Wt 115.9 kg
[2018-09-02 14:02] VITALS: BP 136/74
[2018-09-24] MEDS ORDERED: GLUCOPHAGE500 MG PO (12:36)
[2018-09-25] MEDS ORDERED: NORCO 10-325 TA1 TAB PO (10:48)
== END 2018-09-02 14:04 | disposition home or self-care (01) ==
LOC: D.ER 11:23
DX: E11.43 Type 2 diabetes mellitus with diabetic autonomic (poly)neuropathy (principal); K31.84 Gastroparesis; R11.0 Nausea; G40.909 Epilepsy, unspecified, not intractable, without status epilepticus; I10 Essential (primary) hypertension; K21.9 Gastro-esophageal reflux disease without esophagitis

== ENCOUNTER → 2018-09-25 07:20 | Day surgery (SDC) | payer MEDICARE ==
[~2018-09-25] VITALS: Ht 160 cm; Wt 115.9 kg
--- NOTE | ~2018-09-25 | OP ---
PATIENT NAME: CINDIMarch MEDICAL RECORD: [id number] :82 LOCATION:D.OPS ADMISSION DATE: SURGEON: JEFFREY WINKLER MD DATE OF OPERATION: 09/25/2018 PREOPERATIVE DIAGNOSES: 1. Gastroparesis. 2. Hypertension. 3. Diabetes mellitus. 4. Seizure disorder. 5. Multiple personality disorder. POSTOPERATIVE DIAGNOSES: 1. Gastroparesis. 2. Hypertension. 3. Diabetes mellitus. 4. Seizure disorder. 5. Multiple personality disorder. PROCEDURE: 1. Left subclavian vein port placement. 2. Fluoroscopic interpretation. 3. Replacement of indwelling jejunostomy tube with 20-Qatari FLORENTIN J-tube. SURGEON: Jeffrey Winkler MD REPORT OF PROCEDURE: The patient's left chest was prepped and draped in sterile fashion. A needle was used to cannulate the left subclavian vein and a guidewire was advanced with ease. Fluoro was used to note that the wire was in good position in the venous system. A skin incision was made on the left superior lateral chest and a subcutaneous pouch was made over the pectoral fascia. A catheter was tunneled between this pouch and the wire exit site. The port was sutured to the pectoral fascia using interrupted 2-0 Prolenes times 2. The catheter was then cut with a beveled tip at 24 cm. The dilator trocar device was placed over the wire and the wire and dilator were removed. The catheter tip was advanced through the trocar and the trocar was removed. A catheter tip was noted to be resting in good position in the right atrial superior vena caval junction. The catheter aspirated nonpulsatile dark blood and flushed easily with heparinized saline. The subcutaneous tissues were reapproximated with interrupted 3-0 Vicryl and the skin was closed with running subcutaneous 5-0 Monocryl. After the wound was dressed, we approached the patient's abdomen and the indwelling J-tube, which was a coude Bauer catheter was removed. A new 20-Qatari FLORENTIN gastrostomy tube was inserted into the jejunum. The balloon was inflated with 4 mL of water. The balloon pulled back nicely to the anterior abdominal wall. We then flushed the catheter with Gastrografin and under fluoroscopy we noted that the catheter was in good position in the jejunum. At this point, the catheter was positioned appropriately and a Nu Gauze was placed around the base. COMPLICATIONS: None. CONDITION: Stable. ANESTHESIA: General endotracheal. OPERATIVE REPORT [id number] BLOOD LOSS: Minimal. TRANSINT:[id number] Voice Confirmation ID: [id number] DOCUMENT ID: [id number] JEFFREY WINKLER MD at 0916 CC: IVANNA HELLER [id number] DICTATION DATE: 09/25/18 1053 [employer]OM[employer]IC CAR WASH ATTENDANT: 09/25/18 1106 [facility] [place] 09/25/18 [facility] [address] [place] [address]
[~2018-09-25 07:20] MED LIST changes: +NORCO 10-325 TA1 TAB PO
[2018-09-25 07:55] LABS: HEMATOCRIT 37.7 % (36.0-48.0); HEMOGLOBIN 12.2 g/dL (12-16); LYMPHOCYTES 25.8 % (15-50); MCH 26.2 pg (26.0-34.0); MCHC 32.4 g/dL (31.0-37.0); MCV 80.9 fL (80.0-100.0); MEAN PLATELET VOLUME 8.9 fL (7.4-10.4); NEUTROPHILS 65.6 % (40-80); PLATELET COUNT 286 10x3/uL (130-400); RBC 4.66 10x6/uL (4.00-5.40); RDW 13.6 % (11.5-14.5)
[2018-09-25 08:12] LABS: CALC OSMOLALITY 281 mosm/kg (275-300); CALCIUM 9.5 mg/dL (8.5-10.1); CARBON DIOXIDE 26.5 mmol/L (21.0-32.0); CHLORIDE - SERUM 103 mmol/L (98-107); CREATININE - SERUM 0.7 mg/dL (0.6-1.3); GLUCOSE 152 mg/dL (74-106); SODIUM 141 mmol/L (136-145); UREA NITROGEN 8 mg/dL (7-18); eGFR NON AFRICAN AMERICAN > 90 mL/min (90-120)
[2018-09-25 08:43] LABS: HCG SERUM NEGATIVE (NEGATIVE)
[2018-09-25 08:48] VITALS: BP 149/84; Ht 160 cm; Wt 115.9 kg
== END | disposition home or self-care (01) ==
LOC: D.OPS 07:20
PROVIDERS: Anesthesiology; Surgery
DX: K31.84 Gastroparesis (principal); E11.9 Type 2 diabetes mellitus without complications; I10 Essential (primary) hypertension

== ENCOUNTER → 2018-09-28 17:37 | Outpatient (CLI) | payer MEDICARE ==
[2018-09-25 08:48] VITALS: BMI 45.2
== END | disposition home or self-care (01) ==
LOC: D.LABREF 17:37
DX: K31.84 Gastroparesis (principal); E11.9 Type 2 diabetes mellitus without complications; I10 Essential (primary) hypertension

== ENCOUNTER 2018-09-28 17:48 | Emergency (ER) | payer MEDICARE ==
[~2018-09-28] VITALS: Ht 160 cm; Wt 115.9 kg
[2018-09-28 17:57] VITALS: Ht 160 cm; Wt 115.9 kg
[2018-09-28 20:48] VITALS: BP 147/78
== END 2018-09-28 21:16 | disposition home or self-care (01) ==
LOC: D.ER 17:48
DX: T82.9XXA Unspecified complication of cardiac and vascular prosthetic device, implant and graft, initial encounter (principal); G40.909 Epilepsy, unspecified, not intractable, without status epilepticus; I10 Essential (primary) hypertension; K21.9 Gastro-esophageal reflux disease without esophagitis

== ENCOUNTER 2018-10-03 15:57 | Emergency (ER) | payer MEDICARE ==
[~2018-10-03] VITALS: Ht 160 cm; Wt 115.9 kg
[2018-10-03 16:05] VITALS: Ht 160 cm; Wt 115.9 kg
[2018-10-03 18:04] VITALS: BP 144/87
== END 2018-10-03 18:04 | disposition home or self-care (01) ==
LOC: D.ER 15:57
DX: K94.19 Other complications of enterostomy (principal); G40.909 Epilepsy, unspecified, not intractable, without status epilepticus; E11.9 Type 2 diabetes mellitus without complications; I10 Essential (primary) hypertension

== ENCOUNTER → 2018-10-15 17:13 | Outpatient (CLI) | payer MEDICARE ==
[2018-10-03 16:05] VITALS: BMI 45.2
[2018-10-15 19:14] LABS: ALBUMIN 3.6 g/dL (3.4-5.0); ANION GAP 16.1 mmol/L (8-16); BILIRUBIN - TOTAL 0.14 mg/dL (0.2-1.3); CALCIUM 9.2 mg/dL (8.5-10.1); CARBON DIOXIDE 24.7 mmol/L (21.0-32.0); CREATININE - SERUM 0.9 mg/dL (0.6-1.3); MAGNESIUM - SERUM 1.8 mg/dL (1.8-2.4); POTASSIUM - SERUM 3.8 mmol/L (3.5-5.1)
== END | disposition home or self-care (01) ==
LOC: D.LABREF 17:13
PROVIDERS: Family Medicine
DX: K31.84 Gastroparesis (principal)

== ENCOUNTER → 2018-10-21 11:08 | Outpatient (CLI) | payer MEDICARE ==
[2018-10-03 16:05] VITALS: BMI 45.2
[2018-10-21 13:03] LABS: ALBUMIN 3.6 g/dL (3.4-5.0); ALKALINE PHOSPHATASE 104 U/L (46-116); ALT (SGPT) 25 U/L (10-68); BILIRUBIN - TOTAL 0.33 mg/dL (0.2-1.3); CALC OSMOLALITY 277 mosm/kg (275-300); CARBON DIOXIDE 24.3 mmol/L (21.0-32.0); CHLORIDE - SERUM 104 mmol/L (98-107); CREATININE - SERUM 0.6 mg/dL (0.6-1.3); GLUCOSE 126 mg/dL (74-106); MAGNESIUM - SERUM 1.9 mg/dL (1.8-2.4); PHOSPHOROUS 3.5 mg/dL (2.5-4.9); PROTEIN - SERUM 7.6 g/dL (6.4-8.2); SODIUM 139 mmol/L (136-145); UREA NITROGEN 8 mg/dL (7-18); eGFR NON AFRICAN AMERICAN > 90 mL/min (90-120)
[2018-10-21 13:04] LABS: POTASSIUM - SERUM 4.5 mmol/L (3.5-5.1)
== END | disposition home or self-care (01) ==
LOC: D.LABREF 11:08
PROVIDERS: Family Medicine
DX: E11.43 Type 2 diabetes mellitus with diabetic autonomic (poly)neuropathy (principal); I10 Essential (primary) hypertension; K31.84 Gastroparesis

== ENCOUNTER → 2018-11-02 13:48 | Outpatient (CLI) | payer MEDICARE ==
[2018-10-03 16:05] VITALS: BMI 45.2
[2018-11-02 14:35] LABS: ALBUMIN 3.4 g/dL (3.4-5.0); ALKALINE PHOSPHATASE 81 U/L (46-116); ALT (SGPT) 35 U/L (10-68); BILIRUBIN - TOTAL 0.21 mg/dL (0.2-1.3); CALC OSMOLALITY 281 mosm/kg (275-300); CALCIUM 8.4 mg/dL (8.5-10.1); CARBON DIOXIDE 25.9 mmol/L (21.0-32.0); CHLORIDE - SERUM 104 mmol/L (98-107); CREATININE - SERUM 0.6 mg/dL (0.6-1.3); GLUCOSE 119 mg/dL (74-106); MAGNESIUM - SERUM 1.6 mg/dL (1.8-2.4); PHOSPHOROUS 2.9 mg/dL (2.5-4.9); POTASSIUM - SERUM 4.6 mmol/L (3.5-5.1); PROTEIN - SERUM 7.5 g/dL (6.4-8.2); SODIUM 142 mmol/L (136-145); UREA NITROGEN 6 mg/dL (7-18); eGFR NON AFRICAN AMERICAN > 90 mL/min (90-120)
== END | disposition home or self-care (01) ==
LOC: D.LABREF 13:48
PROVIDERS: Family Medicine
DX: K31.84 Gastroparesis (principal); I10 Essential (primary) hypertension

== ENCOUNTER 2018-11-06 04:27 | Emergency (ER) | payer MEDICARE ==
[~2018-11-06] VITALS: Ht 160 cm; Wt 115.9 kg
[2018-11-06 04:32] VITALS: Ht 160 cm; Wt 115.9 kg
[2018-11-06 05:45] VITALS: BP 161/99
== END 2018-11-06 05:45 | disposition home or self-care (01) ==
LOC: D.ER 04:27
DX: K94.13 Enterostomy malfunction (principal); G40.909 Epilepsy, unspecified, not intractable, without status epilepticus; E11.9 Type 2 diabetes mellitus without complications; I10 Essential (primary) hypertension

== ENCOUNTER 2018-11-10 20:34 | Inpatient (IN) | payer MEDICARE ==
[~2018-11-10] VITALS: Ht 160 cm; Wt 115.7 kg
--- NOTE | ~2018-11-10 | MORECARE ---
CASE MANAGEMENT DISCHARGE SUMMARY PATIENT: CINDIMarch UNIT: [id number] ADM DATE: 11/10/18 AGE: 38 : [birth year] SEX: F ROOM/BED: D.2227 AUTHOR: MILLICENT,DOC PHYSICIAN: REFERRING PHYSICIAN: WENDY BALDWIN MD DATE OF SERVICE: 11/12/18 Discharge Plan Patient Name: CINDIMarch Facility: [facility]:Interior : 1980 Planned Disposition: Home with Home Health Anticipated Discharge Date: Discharge Date: Expected LOS: Initial Reviewer: [email or web address] Initial Review Date: 11/12/2018 Generated: 11/12/18 12:10 pm Comments DCP- Discharge Planning Updated by [email or web address]: Juanita Phillips on 11/12/18 10:[address] Patient Name: March CINDI Admission Status: ER Accout number: [id number] Admission Date: 11-10-2018 : 1980 Admission Diagnosis: Attending: WENDY BALDWIN Current LOS: 2 Anticipated DC Date: Planned Disposition: Home with Home Health Primary Insurance: [employer] ADV Discharge Planning Comments: CM met with patient to discuss discharge planning, her is present in the room. She is independent with all ADL's. States she no longer drives, her drives her where she needs to go. States she is current with [facility], they given IV fluids three times a week. Denies any other needs at this time. I spoke with Darion at [facility] and faxed clinical, they will resume her HHS. CM will continue to follow and assist with discharge planning/needs. Crib Pad Maker: Juanita Phillips DCPIA - Discharge Planning Initial Assessment Updated by [email or web address]: Juanita Phillips on 11/12/18 11:02 am * Is the patient Alert and Oriented? Yes * How many steps to enter\exit or inside your home? 2/0 * PCP Dr. Pacheco * Pharmacy [facility] [address] * Preadmission Environment Home with Family * ADLs Independent * Equipment Enteral Feeding and Supplies * List name and contact numbers for known caregivers / representatives who currently or will assist patient after discharge: Cristian - - [phone] * Verbal permission to speak to the caregivers and representatives has been obtained from the patient. Yes * Community resources currently utilized Home Health * Please name any agencies selected above. [facility] * Additional services required to return to the preadmission environment? No * Can the patient safely return to the preadmission environment? Yes * Has this patient been hospitalized within the prior 30 days at any hospital? No Last DP export: 11/12/18 10:04 Patient Name: CINDIMarch Page [id number] at 1111 All edits/amendments must be made on the electronic document DICTATION DATE: 11/12/18 111 [employer] ARCHITECT: NADIA 11/12/18 1110 RPT#: [id number] DC DATE: STATUS: ADM IN [facility] [address] [place] [address] END OF REPORT
--- NOTE | ~2018-11-10 | MORECARE ---
CASE MANAGEMENT DISCHARGE SUMMARY PATIENT: CINDIMARCH D UNIT: [id number] ADM DATE: 11/10/18 AGE: 38 : [birth year] SEX: F ROOM/BED: D.2227 AUTHOR: AZUL RICKS PHYSICIAN: REFERRING PHYSICIAN: WENDY BALDWIN MD DATE OF SERVICE: 11/12/18 Discharge Plan Patient Name: CINDIMarch [facility] [facility] 1980 Planned Disposition: Home with Home Health Anticipated Discharge Date: Discharge Date: Expected LOS: Initial Reviewer: [email or web address] Initial Review Date: 11/12/2018 Generated: 11/12/18 12:03 pm DCPIA - Discharge Planning Initial Assessment Updated by [email or web address]: uJanita Phillips on 11/12/18 11:02 am * Is the patient Alert and Oriented? Yes * How many steps to enter\exit or inside your home? 2/0 * PCP Dr. Pacheco * Pharmacy [facility] * Preadmission Environment Home with Family * ADLs Independent * Equipment Enteral Feeding and Supplies * List name and contact numbers for known caregivers / representatives who currently or will assist patient after discharge: Cristian [facility] - [phone] * Verbal permission to speak to the caregivers and representatives has been obtained from the patient. Yes * Community resources currently utilized Home Health * Please name any agencies selected above. [facility] is [facility] * Additional services required to return to the preadmission environment? No * Can the patient safely return to the preadmission environment? Yes * Has this patient been hospitalized within the prior 30 days at any hospital? No External Providers External Provider: [facility] Next Contact Date: Service Request Date: Service Type: Resolution: Reviewer: Comments: Patient Name: CINDI MARCH Page [phone] at 1104 All edits/amendments must be made on the electronic document DICTATION DATE: 11/12/18 110 [facility] RECEPTIONIST: NADIA 11/12/18 1103 RPT#: [id number] DC DATE: STATUS: ADM IN [facility] [address] [place] [address] END OF REPORT
--- NOTE | ~2018-11-10 | MORECARE ---
CASE MANAGEMENT DISCHARGE SUMMARY PATIENT: CINDIMarch UNIT: [id number] ADM DATE: 11/10/18 AGE: 38 : [birth year] SEX: F ROOM/BED: D.2227 AUTHOR: MILLICENT,DOC PHYSICIAN: REFERRING PHYSICIAN: WENDY BALDWIN MD DATE OF SERVICE: 11/13/18 Discharge Plan Patient Name: CINDIMarch Facility: [facility]:[place] : 1980 Planned Disposition: Home with Home Health Anticipated Discharge Date: Discharge Date: 11/12/2018 Expected LOS: 0 Initial Reviewer: [email or web address] Initial Review Date: 11/12/2018 Generated: 11/13/18 5:55 pm Comments DCP- Discharge Planning Updated by [email or web address]: Juanita Phillips on 11/12/18 10:[address] Patient Name: March CINDI Admission Status: ER Accout number: [id number] Admission Date: 11-10-2018 : 1980 Admission Diagnosis: Attending: WENDY BALDWIN Current LOS: 2 Anticipated DC Date: Planned Disposition: Home with Home Health Primary Insurance: [employer] ADV Discharge Planning Comments: CM met with patient to discuss discharge planning, her is present in the room. She is independent with all ADL's. States she no longer drives, her drives her where she needs to go. States she is current with [facility], they given IV fluids three times a week. Denies any other needs at this time. I spoke with Darion at [facility] and faxed clinical, they will resume her HHS. CM will continue to follow and assist with discharge planning/needs. [employer] Specialist: Juanita Phillips DCPIA - Discharge Planning Initial Assessment Updated by [email or web address]: Juanita Phillips on 11/12/18 11:02 am * Is the patient Alert and Oriented? Yes * How many steps to enter\exit or inside your home? 2/0 * PCP Dr. Pacheco * Pharmacy [facility] [address] * Preadmission Environment Home with Family * ADLs Independent * Equipment Enteral Feeding and Supplies * List name and contact numbers for known caregivers / representatives who currently or will assist patient after discharge: Cristian - - [phone] * Verbal permission to speak to the caregivers and representatives has been obtained from the patient. Yes * Community resources currently utilized Home Health * Please name any agencies selected above. [facility] is [facility] * Additional services required to return to the preadmission environment? No * Can the patient safely return to the preadmission environment? Yes * Has this patient been hospitalized within the prior 30 days at any hospital? No Last DP export: 11/12/18 10:10 Patient Name: CINDIMarch Page [phone] at 1655 All edits/amendments must be made on the electronic document DICTATION DATE: 11/13/181653 CALF SKINNER: NADIA 11/13/181653 RPT#: [id number] DC DATE:11/12/18 STATUS: DIS IN [facility] [address] [place] [address] END OF REPORT
[2018-11-10 21:51] LABS: BASOPHILS 0.2 % (0-2); EOSINOPHILS 0 % (0-7); HEMATOCRIT 38.5 % (36.0-48.0); HEMOGLOBIN 12.5 g/dL (12-16); IMMATURE GRANULOCYTES 0.3 % (0-5); MCHC 32.5 g/dL (31.0-37.0); MCV 83.2 fL (80.0-100.0); MEAN PLATELET VOLUME 9.5 fL (7.4-10.4); MONOCYTES 6.1 % (2-11); NEUTROPHILS 71.4 % (40-80); RBC 4.63 10x6/uL (4.00-5.40); RDW 14.2 % (11.5-14.5); WBC 11.5 10x3/uL (4.8-10.8)
[2018-11-10 21:54] LABS: PLATELET COUNT 348 10x3/uL (130-400)
[2018-11-10 21:54] LABS: HCG URINE NEGATIVE (NEGATIVE)
[2018-11-10 21:57] LABS: APPEARANCE CLEAR (CLEAR); COLOR YELLOW (YELLOW); SPECIFIC GRAVITY 1.015 (1.005-1.020)
[2018-11-10 21:58] LABS: BILIRUBIN NEGATIVE (NEGATIVE); EPITHELIAL CELLS 0-5 /hpf (0-5); GLUCOSE NEGATIVE (NEGATIVE); KETONE NEGATIVE (NEGATIVE); NITRITE NEGATIVE (NEGATIVE); PROTEIN NEGATIVE (NEGATIVE); RED CELLS - URINE OCC /hpf (0-5); UROBILINOGEN NORMAL (NORMAL); WHITE CELLS - URINE OCC /hpf (0-5)
[2018-11-10 22:17] LABS: ALBUMIN 3.9 g/dL (3.4-5.0); ALKALINE PHOSPHATASE 119 U/L (46-116); ALT (SGPT) 36 U/L (10-68); AMYLASE - SERUM 49 U/L (25-115); BILIRUBIN - TOTAL 0.17 mg/dL (0.2-1.3); CALC OSMOLALITY 279 mosm/kg (275-300); CALCIUM 8.9 mg/dL (8.5-10.1); CARBON DIOXIDE 28.6 mmol/L (21.0-32.0); CHLORIDE - SERUM 100 mmol/L (98-107); CREATININE - SERUM 0.9 mg/dL (0.6-1.3); GLUCOSE 146 mg/dL (74-106); LIPASE 341 U/L (73-393); POTASSIUM - SERUM 3.9 mmol/L (3.5-5.1); PROTEIN - SERUM 8.7 g/dL (6.4-8.2); SODIUM 139 mmol/L (136-145); UREA NITROGEN 9 mg/dL (7-18); eGFR NON AFRICAN AMERICAN 75 mL/min (90-120)
[2018-11-10 22:27] LABS: TROPONIN-I < 0.017 ng/mL (0.000-0.060)
[2018-11-11 01:28] VITALS: BP 138/88; BMI 45.2
[2018-11-11 06:20] LABS: BASOPHILS 0.1 % (0-2); EOSINOPHILS 0 % (0-7); HEMATOCRIT 33.9 % (36.0-48.0); HEMOGLOBIN 10.9 g/dL (12-16); IMMATURE GRANULOCYTES 0.3 % (0-5); LYMPHOCYTES 18.2 % (15-50); MCH 26.4 pg (26.0-34.0); MCHC 32.2 g/dL (31.0-37.0); MCV 82.1 fL (80.0-100.0); MEAN PLATELET VOLUME 9.6 fL (7.4-10.4); MONOCYTES 7.8 % (2-11); NEUTROPHILS 73.6 % (40-80); PLATELET COUNT 334 10x3/uL (130-400); RBC 4.13 10x6/uL (4.00-5.40); RDW 14.2 % (11.5-14.5)
[2018-11-11 06:40] LABS: CALC OSMOLALITY 281 mosm/kg (275-300); CALCIUM 8.2 mg/dL (8.5-10.1); CARBON DIOXIDE 25.7 mmol/L (21.0-32.0); CHLORIDE - SERUM 105 mmol/L (98-107); CREATININE - SERUM 0.7 mg/dL (0.6-1.3); GLUCOSE 109 mg/dL (74-106); MAGNESIUM - SERUM 1.7 mg/dL (1.8-2.4); PHOSPHOROUS 3.1 mg/dL (2.5-4.9); POTASSIUM - SERUM 3.5 mmol/L (3.5-5.1); SODIUM 142 mmol/L (136-145); eGFR NON AFRICAN AMERICAN > 90 mL/min (90-120)
[2018-11-11 06:45] LABS: UREA NITROGEN 6 mg/dL (7-18)
[2018-11-11 08:54] VITALS: BP 127/85
[2018-11-11 10:53] VITALS: BMI 45.1
[2018-11-11 11:19] VITALS: Ht 160 cm; Wt 115.7 kg
[2018-11-11 12:46] VITALS: BP 132/84
[2018-11-11 16:59] VITALS: BP 138/73
[2018-11-11 21:13] VITALS: BP 122/82
[2018-11-12 01:17] VITALS: BP 121/74
[2018-11-12 04:23] VITALS: BP 95/64
[2018-11-12 04:33] VITALS: BP 108/62
[2018-11-12 04:50] LABS: ALKALINE PHOSPHATASE 93 U/L (46-116); BILIRUBIN - TOTAL 0.16 mg/dL (0.2-1.3); CALC OSMOLALITY 286 mosm/kg (275-300); CALCIUM 7.5 mg/dL (8.5-10.1); CARBON DIOXIDE 29.3 mmol/L (21.0-32.0); CHLORIDE - SERUM 107 mmol/L (98-107); CREATININE - SERUM 0.8 mg/dL (0.6-1.3); GLUCOSE 133 mg/dL (74-106); POTASSIUM - SERUM 3.9 mmol/L (3.5-5.1); SODIUM 144 mmol/L (136-145); UREA NITROGEN 6 mg/dL (7-18); eGFR NON AFRICAN AMERICAN 85 mL/min (90-120)
[2018-11-12 04:53] LABS: BASOPHILS 0.2 % (0-2); EOSINOPHILS 0.1 % (0-7); HEMATOCRIT 31.5 % (36.0-48.0); IMMATURE GRANULOCYTES 0.4 % (0-5); LYMPHOCYTES 32.4 % (15-50); MCH 26.6 pg (26.0-34.0); MCHC 31.7 g/dL (31.0-37.0); MCV 83.8 fL (80.0-100.0); MEAN PLATELET VOLUME 9.2 fL (7.4-10.4); MONOCYTES 10.4 % (2-11); NEUTROPHILS 56.5 % (40-80); PLATELET COUNT 280 10x3/uL (130-400); RBC 3.76 10x6/uL (4.00-5.40); RDW 14.5 % (11.5-14.5)
[2018-11-12 04:58] LABS: ALBUMIN 2.9 g/dL (3.4-5.0); ALT (SGPT) 25 U/L (10-68); PROTEIN - SERUM 6.3 g/dL (6.4-8.2)
[2018-11-12 05:00] LABS: WBC 8.1 10x3/uL (4.8-10.8)
[2018-11-12 08:30] VITALS: BP 117/69
== END 2018-11-12 12:46 | disposition home health service (06) | DRG 394 ==
LOC: D.ER 20:34 → D.EDHOLD 23:51 → D.MS 23:51
PROVIDERS: Family Medicine
PROC: 0D20XYZ Change Other Device in Upper Intestinal Tract, External Approach (ICD-10-PCS; principal; 2018-11-11)
DX: K94.23 Gastrostomy malfunction (principal); K56.600 Partial intestinal obstruction, unspecified as to cause; Y83.8 Other surgical procedures as the cause of abnormal reaction of the patient, or of later complication, without mention of misadventure at the time of the procedure; E11.43 Type 2 diabetes mellitus with diabetic autonomic (poly)neuropathy; K31.84 Gastroparesis; K21.9 Gastro-esophageal reflux disease without esophagitis; I10 Essential (primary) hypertension; F44.81 Dissociative identity disorder

== ENCOUNTER → 2018-11-17 16:01 | Outpatient (CLI) | payer MEDICARE ==
[2018-11-11 11:19] VITALS: BMI 45.1
[2018-11-17 17:34] LABS: ALBUMIN 3.6 g/dL (3.4-5.0); ALKALINE PHOSPHATASE 97 U/L (46-116); ALT (SGPT) 28 U/L (10-68); BILIRUBIN - TOTAL 0.13 mg/dL (0.2-1.3); CALC OSMOLALITY 283 mosm/kg (275-300); CALCIUM 9.2 mg/dL (8.5-10.1); CARBON DIOXIDE 25.5 mmol/L (21.0-32.0); CHLORIDE - SERUM 105 mmol/L (98-107); CREATININE - SERUM 0.7 mg/dL (0.6-1.3); GLUCOSE 92 mg/dL (74-106); MAGNESIUM - SERUM 1.7 mg/dL (1.8-2.4); PHOSPHOROUS 3.3 mg/dL (2.5-4.9); POTASSIUM - SERUM 3.6 mmol/L (3.5-5.1); PROTEIN - SERUM 7.7 g/dL (6.4-8.2); SODIUM 144 mmol/L (136-145); UREA NITROGEN 5 mg/dL (7-18); eGFR NON AFRICAN AMERICAN > 90 mL/min (90-120)
== END | disposition home or self-care (01) ==
LOC: D.LABREF 16:01
PROVIDERS: Family Medicine
DX: K31.84 Gastroparesis (principal)

== ENCOUNTER 2018-11-25 19:06 | Inpatient (IN) | payer MEDICARE ==
[~2018-11-25] VITALS: Ht 160 cm; Wt 119.8 kg
--- NOTE | 2018-11-25 21:03 | NUR ---
DR TORRES AT BEDSIDE. ACCESSED PORT. FLUSH WITH 20 ML NS
[2018-11-25 21:37] LABS: BASOPHILS 0.1 % (0-2); EOSINOPHILS 0.1 % (0-7); HEMATOCRIT 45.7 % (36.0-48.0); HEMOGLOBIN 14.7 g/dL (12-16); IMMATURE GRANULOCYTES 1.1 % (0-5); LYMPHOCYTES 10.6 % (15-50); MCH 26.7 pg (26.0-34.0); MCHC 32.2 g/dL (31.0-37.0); MCV 83.1 fL (80.0-100.0); MEAN PLATELET VOLUME 9.6 fL (7.4-10.4); MONOCYTES 5.4 % (2-11); NEUTROPHILS 82.7 % (40-80); PLATELET COUNT 361 10x3/uL (130-400); WBC 18.9 10x3/uL (4.8-10.8)
[2018-11-25 21:41] LABS: INR 1.04 (0.85-1.17); PROTIME 13.1 SECONDS (11.6-15.0)
[2018-11-25 21:50] LABS: D-DIMER-QUANTITATIVE 7.22 ug/mLFEU (0.20-0.54)
[2018-11-25 22:16] LABS: ALBUMIN 2.8 g/dL (3.4-5.0); ANION GAP 18.2 mmol/L (8-16); BILIRUBIN - TOTAL 0.3 mg/dL (0.2-1.3); CARBON DIOXIDE 18.9 mmol/L (21.0-32.0); CREATININE - SERUM 1.8 mg/dL (0.6-1.3); POTASSIUM - SERUM 5.1 mmol/L (3.5-5.1); PROTEIN - SERUM 6.8 g/dL (6.4-8.2)
[2018-11-25 22:28] LABS: C-REACTIVE PROTEIN 6.3 mg/dL (0.0-0.9); MAGNESIUM - SERUM 1.3 mg/dL (1.8-2.4)
[2018-11-25 23:00] LABS: APPEARANCE HAZY (CLEAR); BILIRUBIN NEGATIVE (NEGATIVE); COLOR YELLOW (YELLOW); GLUCOSE NEGATIVE (NEGATIVE); KETONE NEGATIVE (NEGATIVE); NITRITE NEGATIVE (NEGATIVE); PROTEIN TRACE mg/dL (NEGATIVE); UROBILINOGEN NORMAL (NORMAL)
[2018-11-25 23:01] LABS: BACTERIA MANY /hpf (NONE SEEN); EPITHELIAL CELLS 0-5 /hpf (0-5); HCG URINE NEGATIVE (NEGATIVE); RED CELLS - URINE 0-5 /hpf (0-5)
[2018-11-25 23:12] LABS: UDS - AMPHET NEGATIVE QUAL (NEGATIVE); UDS - BARB NEGATIVE QUAL (NEGATIVE); UDS - BENZO NEGATIVE QUAL (NEGATIVE); UDS - COCAINE NEGATIVE QUAL (NEGATIVE); UDS - OPIATE POSITIVE QUAL (NEGATIVE); UDS - PCP NEGATIVE QUAL (NEGATIVE); UDS - THC NEGATIVE QUAL (NEGATIVE)
--- NOTE | 2018-11-25 23:20 | NUR ---
PT SLEEPING COMFORTABLY VSS NO NEW CHANGES WILL CONTINUE TO MONITOR
[2018-11-26] VITALS (93 sets, daily range): BP systolic 58–178; BP diastolic 33–116; Ht 160 cm; Wt 119.8 kg
--- NOTE | 2018-11-26 00:14 | NUR ---
PT RECIEVED. VSS. ASSESSMENT COMPLETE PER FLOW SHEET REFER FOR FINDINGS. FAMILY AT BEDSIDE. WILL CONTINUE TO MONITOR
--- NOTE | 2018-11-26 02:10 | NUR ---
LEVOPHED DECREASED TO 5MCG
--- NOTE | 2018-11-26 03:17 | NUR ---
REASSESSMENT COMPLETE PER FLOW SHEET. VSS. NO NEW CHANGES WILL CONTINUE OT MONITOR
--- NOTE | 2018-11-26 05:30 | NUR ---
AM LAB DRAWN AT THIS TIME, PT TOLERATED WELL
[2018-11-26 06:01] LABS: ANION GAP 17.5 mmol/L (8-16); CALCIUM 7.3 mg/dL (8.5-10.1); CARBON DIOXIDE 20.8 mmol/L (21.0-32.0); CREATININE - SERUM 1.5 mg/dL (0.6-1.3)
[2018-11-26 06:08] LABS: HEMATOCRIT 39.6 % (36.0-48.0); HEMOGLOBIN 12.8 g/dL (12-16); MCH 26.3 pg (26.0-34.0); MCHC 32.3 g/dL (31.0-37.0); MCV 81.3 fL (80.0-100.0); MEAN PLATELET VOLUME 9.6 fL (7.4-10.4); PLATELET COUNT 282 10x3/uL (130-400); RBC 4.87 10x6/uL (4.00-5.40); RDW 14.1 % (11.5-14.5); WBC 24.3 10x3/uL (4.8-10.8)
[2018-11-26 06:12] LABS: POTASSIUM - SERUM 4.3 mmol/L (3.5-5.1)
[2018-11-26 06:43] LABS: LYMPHOCYTES 1 % (15-50); MONOCYTES 4 % (2-11); NEUTROPHILS 75 % (40-80)
[2018-11-26 06:44] LABS: PLATELET ESTIMATE NORMAL
--- NOTE | 2018-11-26 09:04 | NUR ---
0700 ASLEEP EASILY AWAKENS
--- NOTE | 2018-11-26 09:04 | NUR ---
0900 C/O NAUSEA ZOFRAN 4MG IV GIVEN
--- NOTE | 2018-11-26 09:04 | NUR ---
0800 BATH COMPLETE HAIR WASHED
--- NOTE | 2018-11-26 09:05 | NUR ---
09 TAKEN TO [facility] FOR VQ SCAN VERIFIED NEGATIVE PREGNACY TEST PRIOR TO SCAN
--- NOTE | 2018-11-26 09:12 | NUR ---
0915 RN REMAINS WITH PATIENT WHILE LEVOPHED INFUSING
--- NOTE | 2018-11-26 10:28 | NUR ---
0955 INCREASED LEVOPHED TO 7MCG/MIN
--- NOTE | 2018-11-26 10:28 | NUR ---
[address] MARTIN FOR [facility]
--- NOTE | 2018-11-26 10:30 | NUR ---
1030 DR MARTIN RESTARTED HER HOME MEDS
--- NOTE | 2018-11-26 19:00 | NUR ---
ASSESSMENT COMPLETED PER FLOWSHEETS. PT A/O X4,DENIES N/V AT THIS TIME. ST ON CM. TITRATE LEVOPHED TO 29MCG/MIN FOR SBP>90. CONT TO MONITOR.
--- NOTE | 2018-11-26 19:30 | NUR ---
[address] DE LEON ROUNDING ON PATIENT
--- NOTE | 2018-11-26 19:31 | NUR ---
1400 LEFT CHEST WALL IMPLANTED PORT OCCLUSION AND PAINFUL TO PT. REMOVED OLD MONTEMAYOR NEEDLE AND REPLACED WITH LONGER NEEDLE, 1.5 INCH. THIS FIXED PROBLEM. PATIENT STATED NO LONGER PAINFUL
--- NOTE | 2018-11-26 19:33 | NUR ---
1545 DR WINKLER AT BEDSIDE AND PLACED NEW J-TUBE WITHOUT COMPLICATIONS. STATED DO NOT USE UNTIL ABDOMINAL SCAN HAS BEEN PERFORMED
--- NOTE | 2018-11-26 19:59 | NUR ---
1745 OCLUSION TO PORT PLACED FOLDED 4X4 AND TAPED WITH MILD PRESSURE OVER SIGHT TO AID IN INFUSION. PATIENT STATES THAT SHE HAS DONE THIS BEFORE TO HELP FACILITATE PATENCY
--- NOTE | 2018-11-26 20:01 | NUR ---
1715 DECREASED LEVOPHED TO 28 MCG/MIN
--- NOTE | 2018-11-26 23:00 | NUR ---
REASSESSMENT COMPLETED. SEE FLOW SHEETS FOR ALL FINDINGS. NO ACUTE CHANGES IN PT'S STATUS NOTED. TITRATED LEVOPHED TO 10MCG/MIN. CONT TO MONITOR.
[2018-11-27] VITALS (59 sets, daily range): BP systolic 83–136; BP diastolic 49–86
--- NOTE | 2018-11-27 03:00 | NUR ---
REASSESSMENT COMPLETED PER FLOWSHEETS. NO ACUTE CHANGED NOTED IN PT'S STATUS. TITRATED LEVOPHED TO 8MCG/MIN. NO NEEDS VOICES AT THIS TIME. CPOC.
[2018-11-27 05:13] LABS: BASOPHILS 0.1 % (0-2); EOSINOPHILS 0.1 % (0-7); IMMATURE GRANULOCYTES 0.3 % (0-5); MCH 26.1 pg (26.0-34.0); MCHC 31.6 g/dL (31.0-37.0); MCV 82.6 fL (80.0-100.0); MEAN PLATELET VOLUME 9.1 fL (7.4-10.4); MONOCYTES 6.6 % (2-11); NEUTROPHILS 71.9 % (40-80); RDW 14.7 % (11.5-14.5)
[2018-11-27 05:14] LABS: HEMATOCRIT 30.4 % (36.0-48.0); HEMOGLOBIN 9.6 g/dL (12-16); PLATELET COUNT 215 10x3/uL (130-400); RBC 3.68 10x6/uL (4.00-5.40); WBC 10.7 10x3/uL (4.8-10.8)
[2018-11-27 05:29] LABS: ALBUMIN 2.3 g/dL (3.4-5.0); BILIRUBIN - TOTAL 0.19 mg/dL (0.2-1.3); CALCIUM 7.4 mg/dL (8.5-10.1); CREATININE - SERUM 1.4 mg/dL (0.6-1.3); POTASSIUM - SERUM 3.8 mmol/L (3.5-5.1); PROTEIN - SERUM 6.3 g/dL (6.4-8.2)
[2018-11-27 05:36] LABS: ANION GAP 13.6 mmol/L (8-16); CARBON DIOXIDE 26.2 mmol/L (21.0-32.0); PHENYTOIN (DILANTIN) 1.6 ug/mL (10.0-20.0)
--- NOTE | 2018-11-27 12:34 | NUR ---
0700 IN BED WITH EYES CLOSED ASSESSMENT COMPLETE VOICES NO COMPLAINTS AT THIS TIME.
--- NOTE | 2018-11-27 12:35 | NUR ---
0900 PATIENT STARTED MENSTRUAL CYCLE. PARTIAL BATH, LINEN CHANGED PROVIDED PT WITH SANITARY [place] C/O OF PAIN TO ABDOMIN APAP #3 TWO TABS CRUSHED AND GIVEN DOWN J-TUBE ZOFRAN 4MG IV GIVEN FOR NAUSEA.
--- NOTE | 2018-11-27 12:54 | NUR ---
1100 HAVE BEEN WAITING VANCO TROUGH RESULTS PLEASE SEE NOTE DOCUMENTED ON EMAR UNDER VANCO INFUSION NOT GIVEN.
--- NOTE | 2018-11-27 12:58 | NUR ---
1230 NOTIFIED PHARMACY OF VANCO TROUGH RESULTS FOR NEW VANCO ORDERS
--- NOTE | 2018-11-27 13:01 | NUR ---
1245 DECREASED LEVOPHED TO 4MCG/MIN VISITORS AT BEDSIDE
--- NOTE | 2018-11-27 15:14 | NUR ---
1505 C/O ABDOMINAL PAIN 08/10 APAP # 3 TWO PO GIVEN DOWN J-TUBE
--- NOTE | 2018-11-27 18:40 | NUR ---
1700 CBS 124 NO INSULIN COVERAGE INDICATED
--- NOTE | 2018-11-27 19:05 | NUR ---
RECEIVED PT CARE SHIFT ASSESSMENT PERFORMED - SEE FLOWSHEET. VSS - PT ASLEEP EASY TO WAKE, AAOX4 - CO OF NAUSEA AND PAIN. UNABLE TO RECEIVE MEDICATIONS AT THIS TIME - SEE EMAR FOR ADMINISTRATION. WILL CONTINUE TO MONITOR
--- NOTE | 2018-11-27 20:47 | NUR ---
PATIENT STATED SHE NEEDS TO HAVE A BM BUT CANNOT USE THE BEDPAN. REQUESTED UP TO BEDSIDE. PT HAS ORDERS FOR BEDREST AT THIS TIME. MOTHER AT BEDSIDE. EDUCATED PT REGARDING ORDERS WILL CONTINUE TO MONITOR
--- NOTE | 2018-11-27 21:20 | NUR ---
HS MEDS GIVEN SEE EMAR FOR ADMINISTRATION
--- NOTE | 2018-11-27 22:05 | NUR ---
PAGED DR. LYLES REGARDING ELEVATED BP - NO ORDERS RECEIVED AT THIS TIME
--- NOTE | 2018-11-27 23:14 | NUR ---
REASSESSMENT COMPLETED- SEE FLOWSHEET PT DENIES NEEDS, SLEEP EASILY ROUSED. - LEVOPHED TITRATED AT THIS TIME, SEE FLOWSHEET. WILL CONTINUE TO MONITOR
[2018-11-28] VITALS (16 sets, daily range): BP systolic 101–154; BP diastolic 66–94
--- NOTE | 2018-11-28 | NUR ---
LEVOPHED TURNED OFF SEE IV FLOWSHEET
--- NOTE | 2018-11-28 03:16 | NUR ---
REASSESSMENT COMPLETED SEE FLOWSHEET
[2018-11-28 04:11] LABS: BASOPHILS 0.1 % (0-2); EOSINOPHILS 0.3 % (0-7); HEMATOCRIT 27.8 % (36.0-48.0); HEMOGLOBIN 8.5 g/dL (12-16); IMMATURE GRANULOCYTES 0.1 % (0-5); LYMPHOCYTES 29.8 % (15-50); MCHC 30.6 g/dL (31.0-37.0); MEAN PLATELET VOLUME 9.1 fL (7.4-10.4); MONOCYTES 6.3 % (2-11); NEUTROPHILS 63.4 % (40-80); PLATELET COUNT 207 10x3/uL (130-400); RBC 3.27 10x6/uL (4.00-5.40); RDW 14.5 % (11.5-14.5)
[2018-11-28 04:12] LABS: WBC 7.2 10x3/uL (4.8-10.8)
[2018-11-28 04:17] LABS: CALC OSMOLALITY 277 mosm/kg (275-300); CALCIUM 8.3 mg/dL (8.5-10.1); CARBON DIOXIDE 26.2 mmol/L (21.0-32.0); CHLORIDE - SERUM 106 mmol/L (98-107); CREATININE - SERUM 0.7 mg/dL (0.6-1.3); GLUCOSE 96 mg/dL (74-106); POTASSIUM - SERUM 3.8 mmol/L (3.5-5.1); SODIUM 140 mmol/L (136-145); UREA NITROGEN 9 mg/dL (7-18); eGFR NON AFRICAN AMERICAN > 90 mL/min (90-120)
--- NOTE | 2018-11-28 06:16 | NUR ---
PATIENT REQUESTED PAIN AND NAUSEA MEDICATION - SEE EMAR FOR ADMINISTRATION
--- NOTE | 2018-11-28 11:15 | NUR ---
PT MOTHER HAD REQUESTED TO BE NOTIFIED WHEN DR VALDEZ COULD NOT LOCATE IN WAITING AND NO PHONE NUMBER LISTED IN CONTACTS.
--- NOTE | 2018-11-28 16:09 | NUR ---
CALLED DR DE LEON AND ASKED ABOUT STARTING TUBE FEEDINGS. HE ASKED TO START PT ON GLUCERNA TUBE FEEDINGS AT 50ML/HR.
--- NOTE | 2018-11-28 17:35 | NUR ---
PT CLEANED UP IN MARVIN-AREA. IS ON MENSTRAL CYCLE. MEDIUM FLOW. PT ABLE TO TURN SELF. FAMILY HAS BEEN NOTIFIED PT HAS ROOM ON FLOOR ASSIGNED.
--- NOTE | 2018-11-28 19:25 | NUR ---
AWAKE WATCHING TV. ORIENTED X 4. INITIAL ASSESSMENTS STARTED PEG TUBE AND J TUBE DRSG'S C/D/I. LT CHEST IP INTACT SL. RATES PAIN LEVEL OF ABD AT 8 ON NUMBER SCALE DESCRIPED SHARP PAINS. HER MOTHER IS PRESENT IN ROOM. REQUESTED A PILLOW AND BLANKET.
--- NOTE | 2018-11-28 21:00 | NUR ---
ADMIN SCHED MEDS AND TYLENOL 3 CRUSHED THROUGH J TUBE. FLUSHED WITH 60 ML TAP WATER. ADMIN VANCOMYCIN IV SECONDARY DRIP. DENIES ANY OTHER NEEDS OR DISCOMFORTS.
[2018-11-29 00:38] VITALS: BP 140/75
--- NOTE | 2018-11-29 05:00 | NUR ---
WELDER METAL FAB ASSISTED TO BATHROOM FOR BM. DESCRIBED LOOSE STOOLS.
[2018-11-29 05:40] VITALS: BP 128/69
--- NOTE | 2018-11-29 05:51 | NUR ---
ADMIN TYLENOL 3 CRUSHED WITH 60 ML TAP WATER; FLUSHED WITH 60 ML TAP WATER. ADMIN ZOFRAN 4MG IV FOR C/O NAUSEA.
[2018-11-29 06:55] LABS: BASOPHILS 0.1 % (0-2); EOSINOPHILS 0 % (0-7); HEMATOCRIT 27.2 % (36.0-48.0); HEMOGLOBIN 8.5 g/dL (12-16); IMMATURE GRANULOCYTES 0.3 % (0-5); LYMPHOCYTES 26.2 % (15-50); MCH 26.2 pg (26.0-34.0); MCHC 31.3 g/dL (31.0-37.0); MEAN PLATELET VOLUME 9.5 fL (7.4-10.4); MONOCYTES 7.3 % (2-11); NEUTROPHILS 66.1 % (40-80); PLATELET COUNT 218 10x3/uL (130-400); RBC 3.24 10x6/uL (4.00-5.40); RDW 14.1 % (11.5-14.5); WBC 6.8 10x3/uL (4.8-10.8)
[2018-11-29 07:27] LABS: CALC OSMOLALITY 276 mosm/kg (275-300); CALCIUM 8.2 mg/dL (8.5-10.1); CHLORIDE - SERUM 104 mmol/L (98-107); CREATININE - SERUM 0.7 mg/dL (0.6-1.3); GLUCOSE 83 mg/dL (74-106); POTASSIUM - SERUM 3.3 mmol/L (3.5-5.1); SODIUM 141 mmol/L (136-145); eGFR NON AFRICAN AMERICAN > 90 mL/min (90-120)
[2018-11-29 07:29] LABS: UREA NITROGEN 5 mg/dL (7-18)
[2018-11-29 08:31] VITALS: BP 143/88
--- NOTE | 2018-11-29 09:00 | NUR ---
MORNING MEDICATIONS GIVEN VIA PEG TUBE WITHOUT ANY ISSUES AND FLUSHED WITH WATER AFTER. PT HAS A PEG TUBE TO LUQ AND A J-TUBE TO LLQ. BOTH HAVE REDDENED INSERTION SITES AND DRAINAGE, CLEANSED BOTH SITES WITH ASEPTIC FOAM CLEANSER PATTED DRY AND THEN PLACED JANEE DRAINAGE SPONGE TO BOTH SITES AND SECURED WITH TAPE. WILL MAKE SURE ORDER IS IN FOR DAILY CARE TO THOSE SITES. PT HAS A NORWOOD CATHETER IN BUT DOES NOT MEET CRITERIA AND IS ON HER MENSTRUAL PERIOD AND CONSTANTLY DIRTY MARVIN AREA. D/C NORWOOD PER NURSE DRIVEN PROTOCOL. REMOVED 8.75CC OF FLUID FROM BALLOON THEN REMOVED WITH CATHETER TIP FULLY INTACT. PT VOICED THANKS AND DIDNT WANT IT IN PLACE ANYWAYS. PT STATES SHE IS FEELING GOOD OVERALL. DENIES ANY CURRENT PAIN OR NEEDS. FAMILY AT BEDSIDE WILL CTM.
--- NOTE | 2018-11-29 10:45 | NUR ---
PT NEEDING TO URINATE. PT AMBULATED TO WITH STANDBY ASSIST DID VERY WELL. PT VOIDED 325ML OF PINK TINGED URINE. PT BACK IN BED AND RESTING QUIETLY. INITIATED TUBE FEEDING VIA J-TUBE AT 20CC/HR THEN WILL INCREASE BY 10ML/HR Q6HRS TOLERATED. PT DENIES ANY CURRENT NEEDS. WILL CTM.
--- NOTE | 2018-11-29 11:45 | NUR ---
FSBS 91. NO ACTION REQUIRED. PT SITTING UP IN BED RESTING QUIETLY WITH FAMILY AT BEDSIDE. CL IN REACH. PT DENIES ANY CRAMPS OR NAUSEA AFTER STARTING HER TUBE FEEDINGS. CL IN REACH. WILL CTM.
[2018-11-29 12:54] VITALS: BP 157/85
--- NOTE | 2018-11-29 14:06 | NUR ---
PT REQUESTING AND WAS PROVIDED WITH PRN NAUSEA MED ALONG WITH PRN PAIN MEDICATION. PT SITTING UP IN BED VISITING WITH FAMILY. NO FURTHER NEEDS AT THIS TIME. WILL CTM.
[2018-11-29 16:42] VITALS: BP 155/83
--- NOTE | 2018-11-29 16:42 | NUR ---
FSBS 93 PROVIDED NO ACTION REQUIRED PER SS. PT SITTING UP IN BED EATING A POPSICLE AND STATES IT IS GOING DOWN W/O ANY NAUSEA. NO CURRENT NEEDS. WILL CTM.
--- NOTE | 2018-11-29 19:00 | NUR ---
AMBULATING BACK TO BED FROM BATHROOM. DENIES ANY NEEDS. INITIAL ASSESSMENTS STARTED. LEFT CHEST IP WITH LR INFUSING AT 100ML/HR. RECEIVING TUBE FEED AT 40ML/HR. PRESENT IN ROOM. NO QUESTIONS OR CONCERNS VOICED.
--- NOTE | 2018-11-29 20:40 | NUR ---
ADMIN SCHED MEDS CRUSHED THROUGH PEG TUBE. TUBE FEEDING INFUSING THROUGH J TUBE SET AT 40ML/HR.
[2018-11-29 20:53] VITALS: BP 139/90
--- NOTE | 2018-11-29 23:00 | NUR ---
CHECKED RESIDUAL AT 5CC. INCREASED FEED TO 40ML/HR.
[2018-11-30 00:45] VITALS: BP 131/78
[2018-11-30 04:25] VITALS: BP 141/76
--- NOTE | 2018-11-30 04:35 | NUR ---
CHECKED RESIDUAL AT 10CC. ADMIN TYLENOL 3 CRUSHED IN 30ML WATER AND FLUSHED WITH 60ML TAP WATER.
[2018-11-30 04:41] LABS: BASOPHILS 0.6 % (0-2); EOSINOPHILS 0.2 % (0-7); HEMATOCRIT 27.5 % (36.0-48.0); HEMOGLOBIN 8.6 g/dL (12-16); IMMATURE GRANULOCYTES 0.8 % (0-5); LYMPHOCYTES 30.3 % (15-50); MCHC 31.3 g/dL (31.0-37.0); MCV 83.1 fL (80.0-100.0); MEAN PLATELET VOLUME 9.2 fL (7.4-10.4); MONOCYTES 9.6 % (2-11); NEUTROPHILS 58.5 % (40-80); PLATELET COUNT 216 10x3/uL (130-400); RBC 3.31 10x6/uL (4.00-5.40); WBC 6.3 10x3/uL (4.8-10.8)
[2018-11-30 05:23] LABS: ALBUMIN 2.5 g/dL (3.4-5.0); ALKALINE PHOSPHATASE 67 U/L (46-116); ALT (SGPT) 28 U/L (10-68); BILIRUBIN - TOTAL 0.14 mg/dL (0.2-1.3); CALC OSMOLALITY 281 mosm/kg (275-300); CALCIUM 8.3 mg/dL (8.5-10.1); CARBON DIOXIDE 29.4 mmol/L (21.0-32.0); CHLORIDE - SERUM 104 mmol/L (98-107); CREATININE - SERUM 0.7 mg/dL (0.6-1.3); MAGNESIUM - SERUM 1.3 mg/dL (1.8-2.4); POTASSIUM - SERUM 3.2 mmol/L (3.5-5.1); PROTEIN - SERUM 6.2 g/dL (6.4-8.2); SODIUM 142 mmol/L (136-145); UREA NITROGEN 5 mg/dL (7-18); eGFR NON AFRICAN AMERICAN > 90 mL/min (90-120)
[2018-11-30 05:30] LABS: GLUCOSE 133 mg/dL (74-106)
--- NOTE | 2018-11-30 05:30 | NUR ---
ADJ FEED RATE TO 50ML/HR. CHECKED RESIDUAL AT 10CC.
--- NOTE | 2018-11-30 07:30 | NUR ---
ROUNDING DONE WITH PATIENT LAYING ON RIGHT SIDE, RESTING WITH EYES CLOSED. RESP ARE EVEN AND NON LABORED. AROUSES EASILY WHEN I WALK IN. MALE MEMBER IN CHAIR SLEEPING. ON 2L PERNC. LEFT IP WITH BULKY DRESSING, C/D/I WITH LR INFUSING AT 100 CC/HR. KANGAROO FOOD PUMP INFUSING.
[2018-11-30 08:52] VITALS: BP 124/66
[2018-11-30 12:32] VITALS: BP 140/85
--- NOTE | 2018-11-30 12:46 | NUR ---
ALL ITEMS FOR SELF CARE/BATH GIVEN TO PATIENT SO SHE MAY WASH UP AT SINK. MOTHER AT BEDSIDE. WILL CHANGE BED WHEN DONE WASHING UP.
--- NOTE | 2018-11-30 13:22 | NUR ---
PAST WASHING UP AND LINEN CHANGE, PATIENT TO C/O OB ABDOMINAL PAIN. TYLENOL W CODEINE AND ZOFRAN IVP GIVEN. WILL CHANGE ABDOMINAL DRESSINGS TO PEG/J TUBE PAST DISCOMFORT MEASURES.
--- NOTE | 2018-11-30 16:34 | NUR ---
MOTHER STILL AT BEDSIDE, PATIENT DENIES NEEDS AT THIS TIME.
[2018-11-30 16:42] VITALS: BP 134/79
--- NOTE | 2018-11-30 17:39 | NUR ---
DRESSING TO BOTH THE J TUBE AND PEG TUBE CHANGED. J TUBE SKIN UNDER THE WAFER IS CLEAN. PEG TUBE SKIN IS RED AND IRRITATED LOOKING. BOTH SITES CLEANED WITH BETADINE SWABS, NEW DRAIN GUAZE PLACED UNDER WAFERS, AND SECRUED WITH MEDIFOAM TAPE. DATED. TOLERATED WELL.
[2018-11-30 19:00] VITALS: BP 137/86
--- NOTE | 2018-11-30 19:58 | NUR ---
PT LAYING IN BED RESTING. DENIES PAIN AT THIS TIME. ALERT AND ORIENTED X4. UP WITH ASSISTANCE. DRSG TO L UPPER CHEST NOTED OVER L CHEST INFUSAPORT. LR @ 100 CC/HR. PEG TUBE WITH GLUCERNA @ 60 CC/HR. J TUBE SL. BS 124, NO TREATMENT. 2L 02 PER NC. FAMILY AT BEDSIDE. NO FURTHER CONCERNS AT THIS TIME. BED LOWERED AND LOCKED. CL IN REACH. WILL CONTINUE TO MONITOR.
--- NOTE | 2018-11-30 21:44 | NUR ---
MEDS GIVEN TO PT VIA J TUBE. J TUBE PATENT. PT DENIES PAIN AT THIS TIME. BED LOWERED AND LOCKED. CL IN REACH. WILL CONTINUE TO MONITOR.
[2018-12-01] VITALS: BP 137/87
[2018-12-01 05:04] LABS: BASOPHILS 0.2 % (0-2); EOSINOPHILS 0.2 % (0-7); HEMATOCRIT 27.3 % (36.0-48.0); HEMOGLOBIN 8.5 g/dL (12-16); IMMATURE GRANULOCYTES 1.4 % (0-5); LYMPHOCYTES 28.6 % (15-50); MCH 26.2 pg (26.0-34.0); MCHC 31.1 g/dL (31.0-37.0); MCV 84.3 fL (80.0-100.0); MEAN PLATELET VOLUME 9.1 fL (7.4-10.4); MONOCYTES 9.9 % (2-11); NEUTROPHILS 59.7 % (40-80); PLATELET COUNT 223 10x3/uL (130-400); RBC 3.24 10x6/uL (4.00-5.40); RDW 14.1 % (11.5-14.5); WBC 5.8 10x3/uL (4.8-10.8)
[2018-12-01 05:31] LABS: ALBUMIN 2.6 g/dL (3.4-5.0); ALKALINE PHOSPHATASE 68 U/L (46-116); ALT (SGPT) 30 U/L (10-68); BILIRUBIN - TOTAL 0.16 mg/dL (0.2-1.3); CALC OSMOLALITY 280 mosm/kg (275-300); CALCIUM 8.5 mg/dL (8.5-10.1); CARBON DIOXIDE 28.5 mmol/L (21.0-32.0); CHLORIDE - SERUM 105 mmol/L (98-107); CREATININE - SERUM 0.7 mg/dL (0.6-1.3); GLUCOSE 114 mg/dL (74-106); POTASSIUM - SERUM 3.6 mmol/L (3.5-5.1); PROTEIN - SERUM 6.4 g/dL (6.4-8.2); SODIUM 142 mmol/L (136-145); UREA NITROGEN 5 mg/dL (7-18); eGFR NON AFRICAN AMERICAN > 90 mL/min (90-120)
[2018-12-01 05:36] VITALS: BP 130/76
[2018-12-01 05:36] LABS: MAGNESIUM - SERUM 1.8 mg/dL (1.8-2.4)
--- NOTE | 2018-12-01 06:28 | NUR ---
PT LAYING IN BED RESTING. DENIES PAIN AT THIS TIME. BED LOWERED AND LOCKED. CL IN REACH. WILL CONTINUE TO MONITOR.
--- NOTE | 2018-12-01 07:30 | NUR ---
RECEIVED POSITIONED ON LEFT SIDE WITH EYES CLOSED, RESP EVEN AND UNLABORED. AWAKENED EASILY TO NAME. ASSESSMENT COMPLETED. J TUBE PATENT TO UPPER ABD AND CLAMPED. PEG TUBE IN PLACE TO MIDDLE LEFT ABD WITH FEEDING OF GLUCERNA 1.0 CALORIE IN PROGRESS AT 60CC HR AND H20 FLUSH OF 60CC Q 4 HOURS. PLACEMENT OF BOTH TUBES CHECKED PER A/A WITH GOOD PLACEMENT CONFIRMED. IV OF RINGERS LACTATE PATENT TO LEFT INFUSAPORT AT 100 CC/HR. NO REQUESTS VOICED AT THIS TIME. BED IN LOW POSITION, SIDERAILS UP X 2 AND CALL LIGHT IN REACH. FAMILY MEMBER AT BEDSIDE.
[2018-12-01 07:46] VITALS: BP 123/75
--- NOTE | 2018-12-01 09:28 | NUR ---
ELI NEEDS AT THIS TIME. RESP UL ON . IV PATENT. TF INFUSING. WILL CONT. PLAN OF CARE.
[2018-12-01 11:58] VITALS: BP 120/72
[2018-12-01 15:17] VITALS: BP 123/72
--- NOTE | 2018-12-01 19:30 | NUR ---
RESUMING PATIENT CARE. PATIENT IS ALERT AND ORIENTED. RESPIRATIONS ARE EVEN AND UNLABORED. NO S/S OF DISTRESS. PATIENT ASKED ABOUT PAIN MEDICATION. PT TOLD [facility]CO WAS AVAILABLE AT 2100. ALL OTHER NEEDS MET. CALL LIGHT WITHIN REACH. WILL CPOC.
[2018-12-01 21:23] VITALS: BP 133/86
[2018-12-02 00:33] VITALS: BP 140/82
[2018-12-02 05:39] LABS: BASOPHILS 0.1 % (0-2); EOSINOPHILS 0.1 % (0-7); HEMOGLOBIN 8.3 g/dL (12-16); IMMATURE GRANULOCYTES 1.5 % (0-5); LYMPHOCYTES 25.1 % (15-50); MCHC 30.7 g/dL (31.0-37.0); MCV 84.6 fL (80.0-100.0); MEAN PLATELET VOLUME 9.1 fL (7.4-10.4); MONOCYTES 7.7 % (2-11); NEUTROPHILS 65.5 % (40-80); RBC 3.19 10x6/uL (4.00-5.40); RDW 14.4 % (11.5-14.5)
[2018-12-02 05:57] LABS: PLATELET COUNT 276 10x3/uL (130-400); WBC 8.2 10x3/uL (4.8-10.8)
[2018-12-02 06:01] LABS: ALBUMIN 2.7 g/dL (3.4-5.0); ALKALINE PHOSPHATASE 74 U/L (46-116); ALT (SGPT) 32 U/L (10-68); BILIRUBIN - TOTAL 0.09 mg/dL (0.2-1.3); CALC OSMOLALITY 285 mosm/kg (275-300); CALCIUM 8.5 mg/dL (8.5-10.1); CARBON DIOXIDE 28.7 mmol/L (21.0-32.0); CHLORIDE - SERUM 106 mmol/L (98-107); CREATININE - SERUM 0.8 mg/dL (0.6-1.3); GLUCOSE 112 mg/dL (74-106); MAGNESIUM - SERUM 1.6 mg/dL (1.8-2.4); POTASSIUM - SERUM 3.9 mmol/L (3.5-5.1); PROTEIN - SERUM 6.3 g/dL (6.4-8.2); SODIUM 144 mmol/L (136-145); eGFR NON AFRICAN AMERICAN 85 mL/min (90-120)
[2018-12-02 06:04] LABS: UREA NITROGEN 8 mg/dL (7-18)
[2018-12-02 06:24] VITALS: BP 137/85
[2018-12-02 07:54] VITALS: BP 124/78
--- NOTE | 2018-12-02 08:48 | NUR ---
RESTS WITH EYES CLOSED. RESP UL ON . WILL CONT. PLAN OF CARE.
[2018-12-02] MEDS ORDERED: ELIQUIS5 MG PEG (09:45)
[2018-12-02] MEDS ORDERED: ELIQUIS5 MG PO (09:46)
[2018-12-02 11:40] VITALS: BP 120/71
--- NOTE | 2018-12-02 12:20 | MORECARE ---
CASE MANAGEMENT DISCHARGE SUMMARY PATIENT: CINDIMARCH D UNIT: [id number] ADM DATE: 11/25/18 AGE: 38 : 82 SEX: F ROOM/BED: D.2138 AUTHOR: AZUL RICKS PHYSICIAN: REFERRING PHYSICIAN: ELDER MARTIN MD DATE OF SERVICE: 12/02/18 Discharge Plan Patient Name: CINDIMarch Facility: [facility]:[place] : 1980 Planned Disposition: Home Anticipated Discharge Date: 12/02/18 Discharge Date: Expected LOS: 7 Initial Reviewer: [email or web address] Initial Review Date: 12/02/2018 Generated: 12/02/18 1:20 pm DCPIA - Discharge Planning Initial Assessment Updated by [email or web address]: Boom Dye on 12/02/18 12:14 pm * Is the patient Alert and Oriented? Yes * How many steps to enter\exit or inside your home? * PCP DR. HELLER * Pharmacy [facility] * Preadmission Environment Home with Family * ADLs Independent * Equipment Enteral Feeding and Supplies Walker Wheelchair * Other Equipment [employer] - PROVIDER * List name and contact numbers for known caregivers / representatives who currently or will assist patient after discharge: ADALID PUENTE, SPOUSE, * Verbal permission to speak to the caregivers and representatives has been obtained from the patient. Yes * Community resources currently utilized Home Health * Please name any agencies selected above. [facility] * Additional services required to return to the preadmission environment? No * Can the patient safely return to the preadmission environment? Yes * Has this patient been hospitalized within the prior 30 days at any hospital? Yes Coverage Notice Reviewer: [id number] - Boom Dye Notice Issued Date-Time: 12/02/2018 10:50 Notice Type: IM Discharge Notice Notice Delivered To: Patient Relationship to Patient: Warehouse Order Filler Name: Delivery Method: HAND - Hand Delivered Anu Days: Prior Verbal Notification: Recipient Understood Notice: Yes Recipient Signature: Yes Med Rec Note Co-signed by Attending: Coverage Notice Comment: Patient Name: CINDIMarch Page [phone] at 1220 All edits/amendments must be made on the electronic document DICTATION DATE: 12/02/181218 ELECTRICAL ASSEMBLER: NADIA 12/02/181218 RPT#: [id number] [place] DATE: STATUS: ADM IN [facility] [address] [place] [address] END OF REPORT
--- NOTE | 2018-12-02 12:29 | MORECARE ---
CASE MANAGEMENT DISCHARGE SUMMARY PATIENT: CINDIMarch UNIT: [id number] ADM DATE: 11/25/18 AGE: 38 : 82 SEX: F ROOM/BED: D.6680 AUTHOR: MILLICENT,DOC PHYSICIAN: REFERRING PHYSICIAN: ELDER MARTIN MD DATE OF SERVICE: 12/02/18 Discharge Plan Patient Name: CINDIMarch Facility: [facility]:[place] : 1980 Planned Disposition: Home Anticipated Discharge Date: 12/02/18 Discharge Date: Expected LOS: 7 Initial Reviewer: [email or web address] Initial Review Date: 12/02/2018 Generated: 12/02/18 1:29 pm Comments DCP- Discharge Planning Updated by [email or web address]: Boom Dye on 12/02/18 11:[address] Patient Name: ALISTAIR PUENTE Admission Status: ER Accout number: [id number] Admission Date: 11-25-2018 : 1980 Admission Diagnosis:SEPSIS, UNSPECIFIED ORGANISM Attending: ELDER [place] Current LOS: 7 Anticipated DC Date: 12-02-2018 Planned Disposition: Home Primary Insurance: WE[employer] MEDICARE ADV Discharge Planning Comments: CM MET WITH PT AND SPOUSE IN ROOM TO DISCUSS DISCHARGE PLANNING AND NEEDS. March CINDI provided verbal consent to discuss current and ongoing needs with/in the presence of: ADALID PT'S SPOUSE. PT REPORTS LIVING AT HOME INDEPENDENTLY WITH HER SPOUSE. PT HAS FEEDING PUMP AND SUPPLIES, WALKER AND WHEELCHAIR FROM [facility]. PT DID HAVE HOME HEALTH FOR IV INFUSION OF FLUIDS BUT RECEIVED CALL FROM [facility] IN [place] WHO INFORMED HER TODAY THAT THE ORDER HAS AND SHE NEEDS NEW ORDER FOR IV INFUSION OF FLUIDS. PT REPORTS DR. REAL WAS SEEING HER AND ORDERING FLUIDS BUT WILL NO LONGER SEE HER AND REFERRED PT TO DR. ACEVDEO IN [place] WITH NEW PATIENT APPOINTMENT ON 12-07-[address]. [address] HELLER IS HER PRIMARY DOCTOR AND PROVIDES ORDERS FOR HOME HEALTH; PT REQUESTED THE DOCTOR HERE PROVIDE NEW ORDER FOR IV INFUSION AT HOME FOR FLUIDS. CM DISCUSSED AVAILABILITY OF HOME HEALTH, REHAB SERVICES AND MEDICAL EQUIPMENT. PT DENIES DISCHARGE NEEDS OTHER THAN THE HOME HEALTH FOR IV FLUID INFUSION TO CONTINUE. PT'S SPOUSE HERE TO TRANSPORT HOME AT DISCHARGE TODAY. IMPORTANT MESSAGE FROM MEDICARE PROVIDED AND EXPLAINED. CM SPOKE TO RPG DEVELOPER AND ASA ACOSTA, THE DOCTOR WILL NOT PROVIDE HOME HEALTH ORDERS OTHER THAN TO RESUME HOME HEALTH. CM CALLED [facility], , WAS NOTIFIED THAT DR HELLER HAD BEEN SIGNING HOME HEALTH ORDERS AND CANCELLED HOME HEALTH SERVICES. [facility] HAD BEEN PROVIDING HOME HEALTH FOR FLUID INFUSION ONLY. [facility] ADVISED THAT PT SHOULD FOLLOW UP WITH HER PRIMARY DOCTOR TO REQUEST ANY HOME SERVICES AT THIS TIME. CM ADVISED PT OF ABOVE INFORMATION, PT STATES SHE WILL FOLLOW UP WITH DR. HELLER TODAY AFTER DISCHARGE REGARDING HOME HEALTH SERVICES. RPG DEVELOPER NOTIFIED. PT TO DISCHARGE HOME WITH SPOUSE, SPOUSE HERE TO TRANSPORT HOME. PT WILL FOLLOW UP WITH HER PRIMARY CARE DOCTOR TODAY REGARDING HER REQUEST FOR HOME HEALTH. Health Program Specialist: Boom Dye DCPIA - Discharge Planning Initial Assessment Updated by [email or web address]: Boom Dye on 12/02/18 12:14 pm * Is the patient Alert and Oriented? Yes * How many steps to enter\exit or inside your home? * PCP DR. HELLER * Pharmacy [facility] ON [address] * Preadmission Environment Home with Family * ADLs Independent * Equipment Enteral Feeding and Supplies Walker Wheelchair * Other Equipment [employer] - PROVIDER * List name and contact numbers for known caregivers / representatives who currently or will assist patient after discharge: ADALID PUENTE, SPOUSE, * Verbal permission to speak to the caregivers and representatives has been obtained from the patient. Yes * Community resources currently utilized Home Health * Please name any agencies selected above. [facility] * Additional services required to return to the preadmission environment? No * Can the patient safely return to the preadmission environment? Yes * Has this patient been hospitalized within the prior 30 days at any hospital? Yes Coverage Notice Reviewer: [email or web address] - Boom Dye Notice Issued Date-Time: 12/02/2018 10:50 Notice Type: IM Discharge Notice Notice Delivered To: Patient Relationship to Patient: Planting Machine Operator Name: Delivery Method: HAND - Hand Delivered Anu Days: Prior Verbal Notification: Recipient Understood Notice: Yes Recipient Signature: Yes Med Rec Note Co-signed by Attending: Coverage Notice Comment: Last DP export: 12/02/18 11:20 am Patient Name: CINDI MARCH Page [id number] at 1229 All edits/amendments must be made on the electronic document DICTATION DATE: 12/02/181227 TEACHER TUTOR: NADIA 12/02/188 RPT#: [id number] DC DATE: STATUS: ADM IN [facility] [address] [place] [address] END OF REPORT
--- NOTE | 2018-12-02 13:28 | NUR ---
PATIENT IN BED AT 1200, SKIN W/D TO TOUCH, COLOR PINK, RESP. REGULAR AND EVEN AT 18. LEFT INFUSAPORT INTACT WITH NS INFUSING AT 100 WITHOUT DIFFICULTY. BLOOD SUGAR 112 NO INSULIN NEEDED PER SLIDING SCALE. GLUCERNA INFUSING AT 60 VIA PUMP AND FLUSHES WITHOUT DIFFICULTY. FAMILY AT BEDSIDE. RECEIVED ORDERS FOR DISCHARGE FLUIDS AND FEEDING STOPED AND BOTH FLUSHED. PATIENT DISCHARGED VIA W/C VIA PRIVATE VEHICLE AND VERBALIZED UNDERSTANDING.
== END 2018-12-02 11:45 | disposition home or self-care (01) | DRG 871 ==
LOC: D.ER 19:06 → D.M2 22:40 → D.EDHOLD 22:40 → D.ICU 22:40 → D.CVICU 23:21 → D.ICU 23:23 → D.M2 11-28 18:09 → D.SDCHOLD 11-28 18:48 → D.M2 11-28 18:50
PROVIDERS: Emergency Medicine; ADMIT Family Medicine
PROC: 0D2DXUZ Change Feeding Device in Lower Intestinal Tract, External Approach (ICD-10-PCS; principal; 2018-11-26)
DX: A41.9 Sepsis, unspecified organism (principal); R65.21 Severe sepsis with septic shock; I26.99 Other pulmonary embolism without acute cor pulmonale; K94.19 Other complications of enterostomy; E87.2 Acidosis; G40.909 Epilepsy, unspecified, not intractable, without status epilepticus; I10 Essential (primary) hypertension; E66.9 Obesity, unspecified; E11.43 Type 2 diabetes mellitus with diabetic autonomic (poly)neuropathy; K31.84 Gastroparesis; F44.81 Dissociative identity disorder; E87.6 Hypokalemia; E83.42 Hypomagnesemia; D50.9 Iron deficiency anemia, unspecified; K21.9 Gastro-esophageal reflux disease without esophagitis; F32.9 Major depressive disorder, single episode, unspecified

== ENCOUNTER 2018-12-06 13:17 | Observation (INO) | payer MEDICARE ==
[~2018-12-06] VITALS: Ht 160 cm; Wt 115.7 kg
[~2018-12-06 13:17] MED LIST changes: +ELIQUIS5 MG PEG; +ELIQUIS5 MG PO
[2018-12-06 13:56] LABS: BASOPHILS 0.2 % (0-2); EOSINOPHILS 0 % (0-7); IMMATURE GRANULOCYTES 1.2 % (0-5); LYMPHOCYTES 21.7 % (15-50); MCH 26.2 pg (26.0-34.0); MCHC 31.4 g/dL (31.0-37.0); MCV 83.3 fL (80.0-100.0); MONOCYTES 4.9 % (2-11); RDW 14.2 % (11.5-14.5)
[2018-12-06 13:58] LABS: PLATELET COUNT 461 10x3/uL (130-400)
[2018-12-06 14:04] LABS: APTT 27.5 SECONDS (22.8-39.4); INR 0.97 (0.85-1.17); PROTIME 12.4 SECONDS (11.6-15.0)
[2018-12-06 14:06] LABS: D-DIMER-QUANTITATIVE 1.25 ug/mLFEU (0.20-0.54)
--- NOTE | 2018-12-06 14:15 | NUR ---
PT TO ED 12 C/O SOB WITH CHEST PAIN THAT WORSENS ON INSPIRATION FOR SEVERAL DAYS. STATES SHE WAS D/C'D FROM THE HOSPITAL FRIDAY FOR A PE AND WAS UNABLE TO FILL HER RX FOR ELIQUIS. BS CTA BILATERALLY. BREATHING EVEN, NON-LABORED. PLACED ON NIBP, SPO2, AND VISUAL SPECIALIST. NAD. AAOX4 AT THIS TIME.
[2018-12-06 14:16] LABS: ALBUMIN 3.6 g/dL (3.4-5.0); ALKALINE PHOSPHATASE 106 U/L (46-116); ALT (SGPT) 36 U/L (10-68); BILIRUBIN - TOTAL 0.13 mg/dL (0.2-1.3); CALC OSMOLALITY 278 mosm/kg (275-300); CALCIUM 9.2 mg/dL (8.5-10.1); CARBON DIOXIDE 24.9 mmol/L (21.0-32.0); CHLORIDE - SERUM 103 mmol/L (98-107); CREATININE - SERUM 0.9 mg/dL (0.6-1.3); GLUCOSE 135 mg/dL (74-106); POTASSIUM - SERUM 3.8 mmol/L (3.5-5.1); PROTEIN - SERUM 8.5 g/dL (6.4-8.2); SODIUM 139 mmol/L (136-145); UREA NITROGEN 11 mg/dL (7-18); eGFR NON AFRICAN AMERICAN 75 mL/min (90-120)
[2018-12-06 14:22] LABS: TROPONIN-I < 0.017 ng/mL (0.000-0.060)
--- NOTE | 2018-12-06 14:23 | NUR ---
PT TO CT AT THIS TIME.
--- NOTE | 2018-12-06 14:45 | NUR ---
PT RETURNED FROM CT AT THIS TIME.
--- NOTE | 2018-12-06 14:50 | NUR ---
PT RETURNED FROM CT WITH REPORT THAT THE IV INFILTRATED AFTER FLUSHING WITH NS AFTER CT WAS COMPLETE. IV REMOVED. EXTREMITY ELEVATED, AND HEAT APPLIED.
--- NOTE | 2018-12-06 17:00 | NUR ---
PT'S PORT ACCESSED AT THIS TIME TO LEFT UPPER CHEST WITH 20 GAUGE MONTEMAYOR 1.5 INCH NEEDLE. PT TOLERATED WELL. FLUSHES EASILY. NO BLOOD RETURN. NO SIGNS OF INFILTRATION. SWAB CAPS IN USE.
--- NOTE | 2018-12-06 18:00 | NUR ---
REPORT RECD ON PT. WILL AWAIT PT TRANSPORT TO ROOM.
--- NOTE | 2018-12-06 18:34 | NUR ---
PT ARRIVES TO ROOM VIA WHEELCHAIR FROM ER. RESPIRATIONS ARE EVEN AND UNLABORED. PT WITH FEEDING TUBE. FAMILY AT BEDSIDE. BED IS IN LOWEST POSITION. CALL LIGHT AND BEDSIDE TABLE ARE WITHIN REACH. PT DENIES FURTHER NEEDS AT THIS TIME.
--- NOTE | 2018-12-06 19:15 | NUR ---
RECEIVED CARE FROM DAY NURSE. LYING IN BED WITH SPOUSE AT SIDE. CALL LIGHT AT SIDE. NO NEEDS VOICED AT THIS TIME. LEFT IP SL.
[2018-12-06 21:13] VITALS: BP 148/69
[2018-12-06 21:17] VITALS: BP 128/75; BMI 45.2
--- NOTE | 2018-12-06 21:29 | NUR ---
SPOKE WITH [employer] SYSTEM ADMINISTRATOR IN REGARDS TO ORDER. POLO STATED THAT SHE ONLY HAS TWO UNITS AVAILABLE AND THEY ARE FOR CHEST PAIN PATIENTS ONLY. NO MONITOR AVAILABLE AT THIS TIME.
--- NOTE | 2018-12-06 22:40 | NUR ---
TR[facility]NPORTED PT TO [facility]. MOTHER AT SIDE.
--- NOTE | 2018-12-06 22:44 | NUR ---
REC'D PATIENT TO ROOM 1203 VIA WHEELCHAIR. GUEST AT BEDSIDE. PATIENT REQUESTED RESTORIL WITH HER NIGHT MEDS. NO S/S OF DISTRESS. BED IN LOWEST POSITION AND CALL LIGHT WITHIN REACH. ENCOURAGED THE PATIENT TO CALL IF SHE HAS NEEDS. WILL CONTINUE TO MONITOR.
[2018-12-06 23:59] VITALS: BP 133/84
[2018-12-07 04:00] VITALS: BP 143/84
[2018-12-07 08:24] VITALS: BP 137/85
--- NOTE | 2018-12-07 10:09 | NUR ---
AM MEDS GIVEN VIA PEG TUBE, ALSO PROVIDED PT WITH DIET [place]. PT DENIES ANY OTHER NEEDS AT THIS TIME. CALL LIGHT IN REACH, FAMILY AT BEDSIDE, NAD NOTED, WILL CONTINUE TO MONITOR.
[2018-12-07 13:00] VITALS: BP 130/83
[2018-12-07 14:37] VITALS: BMI 45.1
--- NOTE | 2018-12-07 14:45 | NUR ---
FEEDINGS STARTED AT THIS TIME. GLUCERNA 1.0 KELTON AT 30CC/HR FOR 2HRS THEN INCREASE TO 65CC/HR, WITH 15ML/HR FLUSH. PT DENIES ANY NEEDS AT THIS TIME. FAMILY AT BEDSIDE, CALL LIGHT IN REACH, NAD NOTED, WILL CONTINUE TO MONITOR.
--- NOTE | 2018-12-07 16:25 | NUR ---
DR. MEANS AND DR. BALDERAS AT BEDSIDE TO ASSESS PT. ADMINISTERED TYLENOL WITH CODEINE FOR PAIN LEVEL OF 9\10 VIA PEG TUBE, PT DENIES ANY NEEDS AT THIS TIME. CALL LIGHT IN REACH,NAD NOTED, WILL CONTINUE TO MONITOR.
[2018-12-07 16:54] VITALS: BP 136/81
[2018-12-07 17:13] VITALS: Ht 160 cm; Wt 115.7 kg
[2018-12-07 20:00] VITALS: BP 133/87
--- NOTE | 2018-12-07 21:00 | NUR ---
PATIENT RESTING IN BED WITH GUEST AT BEDSIDE. ADMINISTERED MEDS PER ORDERS. PATIENT DENIES OTHER NEEDS AT THIS TIME. BED IN LOWEST POSITION AND CALL LIGHT WITHIN REACH. ENCOURAGED THE PATIENT TO CALL IF SHE HAS NEEDS. WILL CONTINUE TO MONITOR.
[2018-12-08] VITALS: BP 137/78
[2018-12-08 04:00] VITALS: BP 130/71
--- NOTE | 2018-12-08 04:00 | NUR ---
CHANGED PATIENT'S FEEDING BAGS AND ADDED TWO CONTAINERS
[2018-12-08 07:27] VITALS: BP 116/77
[2018-12-08 07:48] LABS: BASOPHILS 0.4 % (0-2); EOSINOPHILS 0.1 % (0-7); HEMATOCRIT 31.4 % (36.0-48.0); IMMATURE GRANULOCYTES 0.7 % (0-5); LYMPHOCYTES 34.1 % (15-50); MCH 26.2 pg (26.0-34.0); MCHC 31.8 g/dL (31.0-37.0); MCV 82.2 fL (80.0-100.0); MEAN PLATELET VOLUME 9.2 fL (7.4-10.4); MONOCYTES 8.5 % (2-11); NEUTROPHILS 56.2 % (40-80); PLATELET COUNT 412 10x3/uL (130-400); RBC 3.82 10x6/uL (4.00-5.40); RDW 14.5 % (11.5-14.5)
[2018-12-08 07:58] LABS: CALC OSMOLALITY 285 mosm/kg (275-300); CALCIUM 9.1 mg/dL (8.5-10.1); CHLORIDE - SERUM 105 mmol/L (98-107); CREATININE - SERUM 0.6 mg/dL (0.6-1.3); GLUCOSE 115 mg/dL (74-106); SODIUM 143 mmol/L (136-145); UREA NITROGEN 12 mg/dL (7-18); eGFR NON AFRICAN AMERICAN > 90 mL/min (90-120)
[2018-12-08 08:01] LABS: INR 1.05 (0.85-1.17); PROTIME 13.2 SECONDS (11.6-15.0)
--- NOTE | 2018-12-08 10:01 | NUR ---
AM MEDS GIVEN VIA PEG TUBE, ALSO GAVE TYLENOL WITH CODEINE FOR PAIN LEVEL OF 8/10. ALSO PROVIDED PT WITH DIET LEMON [place]. PT DENIES ANY OTHER NEEDS AT THIS TIME. CALL LIGHT IN REACH, NAD NOTED, AT BEDSIDE, WILL CONTINUE TO MONITOR.
[2018-12-08 11:43] VITALS: BP 117/76
[2018-12-08 15:13] VITALS: BP 120/77
--- NOTE | 2018-12-08 16:33 | NUR ---
ADMINISTERED TYLENOL WITH CODEINE FOR PAIN LEVEL OF 9/10, ALSO GAVE 8MG OF ZOFRAN FOR NUASEA, VIA PEG TUBE. PT DENIES ANY OTHE NEEDS NEEDS AT THIS TIME. CALL LIGHT IN REACH, NAD NOTED.
[2018-12-08 20:00] VITALS: BP 118/70
--- NOTE | 2018-12-08 22:03 | NUR ---
PATIENT RESTING IN BED WITH NO S/S OF DISTRESS AND AT BEDSIDE. BROUGHT PATIENT POPSICLES PER HER REQUEST. PATIENT DENIES OTHER NEEDS AT THIS TIME. BED IN LOWEST POSITION AND CALL LIGHT WITHIN REACH. ENCOURAGED THE PATIENT TO CALL IF SHE HAS NEEDS.
[2018-12-09 00:20] VITALS: BP 144/69
[2018-12-09 04:00] VITALS: BP 134/77
[2018-12-09 07:15] LABS: BASOPHILS 0.6 % (0-2); EOSINOPHILS 0 % (0-7); HEMATOCRIT 32.3 % (36.0-48.0); HEMOGLOBIN 10.2 g/dL (12-16); IMMATURE GRANULOCYTES 0.4 % (0-5); LYMPHOCYTES 36.3 % (15-50); MCH 26.2 pg (26.0-34.0); MCHC 31.6 g/dL (31.0-37.0); MEAN PLATELET VOLUME 9.4 fL (7.4-10.4); MONOCYTES 7.9 % (2-11); NEUTROPHILS 54.8 % (40-80); PLATELET COUNT 393 10x3/uL (130-400); RBC 3.89 10x6/uL (4.00-5.40); RDW 14.4 % (11.5-14.5); WBC 7.7 10x3/uL (4.8-10.8)
[2018-12-09 07:35] LABS: ANION GAP 17.2 mmol/L (8-16); CALCIUM 8.7 mg/dL (8.5-10.1); CARBON DIOXIDE 23.9 mmol/L (21.0-32.0); POTASSIUM - SERUM 4.1 mmol/L (3.5-5.1)
[2018-12-09 07:37] LABS: CREATININE - SERUM 0.9 mg/dL (0.6-1.3)
[2018-12-09 07:42] LABS: INR 1.03 (0.85-1.17)
[2018-12-09 08:24] VITALS: BP 117/73
--- NOTE | 2018-12-09 08:50 | NUR ---
AM MEDS GIVEN VIA PEG TUBE, PT RESTING COMFORTABLY IN BED, DENIES ANY NEEDS AT THIS TIME. CALLL LIGHT IN REACH, AT BEDSIDE, NAD NOTED, WILL CONTINUE TO MONITOR.
[2018-12-09 12:56] VITALS: BP 136/75
[2018-12-09 16:50] VITALS: BP 123/75
--- NOTE | 2018-12-09 19:26 | NUR ---
PT RESTING IN BED. FAMILY AT BEDSIDE. TUBE FEEDING INFUSING ORDERED. PT HAS NO S/S OF DISTRESS. BEDLOW AND CALL LIGHT IN REACH. NAME AND DATE PLACED ON BOARD. WILL CPOC
--- NOTE | 2018-12-09 19:45 | CN ---
PATIENT NAME:CINDI MEDICAL RECORD: [id number] : [birth year] LOCATION:D.M3 D.1203 ADMIT DATE: 12/06/18 ACCOUNT: [id number] CONSULTING PHYSICIAN: GEE MEANS MD REFERRING PHYSICIAN: MANA HAZEL MD DATE OF CONSULTATION: 12/07/2018 CONSULT REQUESTING PHYSICIAN: Ivelisse Gomez MD REASON FOR CONSULTATION: Pulmonary embolism. HISTORY OF PRESENT ILLNESS: Ms. Bahena is a 38-year-old female. She was discharged last week. She has a PE. The patient was discharged on Eliquis, but the patient could not afford to buy Eliquis. She was complaining of chest pain and came into the ER. There was some shortness of breath. There was no syncopal episode. There was no swelling of the lower extremity. REVIEW OF THE SYSTEMS: As in history of present illness. PAST MEDICAL HISTORY: 1. Pulmonary embolism, just recently diagnosed last week. 2. Hypertension. 3. Diabetes mellitus. 4. Seizure disorder. 5. Gastroesophageal reflux disease. 6. Depression. 7. Multiple personality. PAST SURGICAL HISTORY: 1. Cholecystectomy. 2. Status post gastric pacemaker placement. 3. Feeding tube placement. ALLERGY: No known drug allergy. MEDICATIONS: [employer] was reviewed. PERSONAL AND SOCIAL HISTORY: The patient is nonsmoker and nondrinker. FAMILY HISTORY: Noncontributory. She has pulmonary thromboembolism on the mother's side. PHYSICAL EXAMINATION: GENERAL: Now, the patient is lying comfortably in bed. She is not in acute distress. VITAL SIGNS: The blood pressure is 130/83, pulse is 85, respiration is 17, temperature is 98.2, and SpO2 is 95% on room air. HEENT: Conjunctivae are pink. Sclerae are not icteric. NECK: Neck is supple. No JVD. CHEST: The chest excursion is minimal on both sides. No wheezes. No rales. HEART: Rhythm regular. Normal sound. No murmur. ABDOMEN: Abdomen is soft. Bowel sounds present. No hepatosplenomegaly. RECTAL: Deferred. EXTREMITIES: No cyanosis. No clubbing. No pedal edema. CENTRAL NERVOUS SYSTEM: The patient is awake and alert. There is no obvious CONSULT REPORT [id number] cranial nerve abnormality. The gait was not tested. DIAGNOSTIC DATA: CTA of the chest; there is right-sided embolus. No acute infiltrate. There is small pericardial effusion. LABORATORY DATA: CBC; WBC is 12,000, hemoglobin 11, hematocrit 35, and platelet count is 461. IMPRESSION: 1. Pulmonary embolism, confirmed by the CTA of the chest. 2. Leukocytosis. 3. Seizure disorder. 4. Chest pain secondary to PE. 5. Gastroesophageal reflux disease. RECOMMENDATION: 1. Continue Lovenox subcutaneously. 2. Coumadin to keep the INR between 2 and 3. 3. Hypercoagulable workup per Dr. Barton. 4. Follow up labs and chest radiograph. Dr. Gomez, thank you for involving me in the care of Ms. Bahena. TRANSINT:[id number] Voice Confirmation ID: [id number] DOCUMENT ID: [id number] GEE MEANS MD at 1945 CC: [id number] DICTATION DATE: 12/07/18 1632 FUEL OIL TRUCK DRIVER: 12/07/18 1822 ADM IN [place] [id number] [place] [address]
[2018-12-09 21:00] VITALS: BP 130/78
--- NOTE | 2018-12-09 21:00 | NUR ---
PT HAS TELEMETRY ORDER. NO TELEMETRY AVALIBLE. GLAZIER APPRENTICE NOTIFIED.
--- NOTE | 2018-12-09 21:50 | NUR ---
DILANTIN NOT NEEDING TO BE CRUSH, CALLING TO CHANGE ORDER
--- NOTE | 2018-12-09 22:25 | NUR ---
CALLED TO CHANGE ORDER, [facility]YX DOESNT KNOW WHAT MG TO CHANGE MED TO. PHARMACY IS NOT HERE. ALYX STATED TO GIVE MEDIATION THE WAY IT HAS BEEN GIVEN (WHICH IS CRUSHED THROUGH PEG TUBE) PT STATES SHE CANNOT SWALLOW IT AND IF IT IS GIVEN THROUGH HER PEG TUBE IT SHOULD BE FINE.
--- NOTE | 2018-12-09 23:08 | NUR ---
PT COMPLAINS OF STOMACH PAIN AND RIGHT LUNG PAIN DURING INHALE. PT GIVEN PRN TYLENOL 3. PT DENIES ANY OTHER NEEDS. NO S/S OF DISTRESS. WILL CPOC
--- NOTE | 2018-12-09 23:20 | NUR ---
PLACED DRSG ON J TUBE AND PEG TUBE SITES. PT DENIES ANY NEEDS. WILL CPOC
--- NOTE | 2018-12-09 23:27 | NUR ---
PT TOOK A BEDBATH AT 2230. PT DENIES ANY NEEDS
--- NOTE | 2018-12-10 03:46 | NUR ---
PT ASLEEP, RESP EVEN AND UNLABORED. NO S/S OF DISTRESS. BEDLOW AND CALL LIGHT IN REACH. FAMILY AT BEDSIDE. WILL CPOC
--- NOTE | 2018-12-10 05:46 | NUR ---
PT ASKING FOR PAIN MEDS. TYLENOL 3 GIVEN ORDERED. PT TUBE FEEDING TUBING CHANGED. PT DENIES ANY OTHER NEEDS. NO S/S OF DISTRESS. WILL CPOC
[2018-12-10 05:48] VITALS: BP 113/68
[2018-12-10 07:47] LABS: CALC OSMOLALITY 277 mosm/kg (275-300); CALCIUM 8.9 mg/dL (8.5-10.1); CARBON DIOXIDE 26.6 mmol/L (21.0-32.0); CHLORIDE - SERUM 103 mmol/L (98-107); CREATININE - SERUM 0.8 mg/dL (0.6-1.3); GLUCOSE 118 mg/dL (74-106); POTASSIUM - SERUM 3.8 mmol/L (3.5-5.1); SODIUM 139 mmol/L (136-145); eGFR NON AFRICAN AMERICAN 85 mL/min (90-120)
[2018-12-10 07:48] LABS: UREA NITROGEN 10 mg/dL (7-18)
[2018-12-10 08:17] LABS: INR 1.09 (0.85-1.17); PROTIME 13.6 SECONDS (11.6-15.0)
[2018-12-10 08:23] LABS: HEMATOCRIT 31.9 % (36.0-48.0); HEMOGLOBIN 10.5 g/dL (12-16); LYMPHOCYTES 30.5 % (15-50); MCH 26.7 pg (26.0-34.0); MCHC 32.9 g/dL (31.0-37.0); MCV 81.2 fL (80.0-100.0); MEAN PLATELET VOLUME 9.3 fL (7.4-10.4); NEUTROPHILS 60.6 % (40-80); PLATELET COUNT 418 10x3/uL (130-400); RBC 3.93 10x6/uL (4.00-5.40); WBC 7.2 10x3/uL (4.8-10.8)
[2018-12-10 09:34] VITALS: BP 110/71
[2018-12-10 12:41] VITALS: BP 120/69
--- NOTE | 2018-12-10 12:53 | NUR ---
Nutrition Follow Up: Pt reported that she is tolerating current TF regimen. She said that she is unable to eat without N/V but is able to drink at times. Diet: TF of Glucerna 1.0 @ 65 ml/hr with H2O flushes 60 ml Q4H BM: 12/09/18 Wt stable Meds and labs reviewed Rec continue current TF, H2O flush regimen as tolerated. RD following.
[2018-12-10 16:42] VITALS: BP 124/70
--- NOTE | 2018-12-10 19:46 | NUR ---
GREETED PATIENT AND INTRODUCED MYSELF HER NURSE FOR EVENING. PATIENT HAS FAMILY MEMBER AT BEDSIDE. RESTARTED HER TUBE FEEDING WITH GLUCERNA AT 65.
[2018-12-10 20:50] VITALS: BP 112/65
--- NOTE | 2018-12-11 00:10 | NUR ---
ANSWERING CALL LIGHT PATIENT IS RESQUESTING PRN PAIN MEDICATION FOR PAIN IN CHEST IN STOMACH.
--- NOTE | 2018-12-11 00:27 | NUR ---
ADMINISTERED TYLENOL W/CODEINE FOR PAIN IN CHEST AND STOMACH. CRUSHED AND GAVE THRU PEG TUBE. WCTM.
--- NOTE | 2018-12-11 02:00 | NUR ---
PATIENT ASLEEP EYES CLOSED LAYING IN SUPINE POSITION. HOB AT 30 DEGREES. CALL LIGHT IN REACH. BED IN LOWEST POSITION.
[2018-12-11 04:15] VITALS: BP 100/53
--- NOTE | 2018-12-11 06:22 | NUR ---
CHANGED FEEDING TUBE BAGS AND RESTARTED WITH 700 ML OF GLUCERNA RUNNING AT 65 ML/HR.
[2018-12-11 07:19] LABS: CALC OSMOLALITY 278 mosm/kg (275-300); CALCIUM 9.2 mg/dL (8.5-10.1); CARBON DIOXIDE 24.2 mmol/L (21.0-32.0); CHLORIDE - SERUM 103 mmol/L (98-107); CREATININE - SERUM 0.8 mg/dL (0.6-1.3); GLUCOSE 120 mg/dL (74-106); INR 1.13 (0.85-1.17); SODIUM 139 mmol/L (136-145); UREA NITROGEN 12 mg/dL (7-18); eGFR NON AFRICAN AMERICAN 85 mL/min (90-120)
[2018-12-11 08:24] VITALS: BP 122/68
--- NOTE | 2018-12-11 10:15 | NUR ---
PT LAYING IN BED RESTING WITH EYES CLOSED, FAMILY AT BEDSIDE. AWOKEN EASILY TO VERBAL STIMULI. MOOD PLEASANT. RESPIRATIONS EVEN AND UNLABORED, NO S/S OF DISTRESS NOTED. DRAINAGE SPONGE X2 PLACED ON INCISION SITES TO HELP ABSORB DRAINAGE. GLUCERNA 1.0 CONTINUOUS FEEDING INFUSING. DENIES NEEDS. BED LOW AND LOCKED, SR UP X2, CL IN EASY REACH. WILL CONTINUE TO MONITOR.
[2018-12-11 10:42] LABS: EOSINOPHILS 0.1 % (0-7); HEMATOCRIT 33.3 % (36.0-48.0); HEMOGLOBIN 10.6 g/dL (12-16); IMMATURE GRANULOCYTES 0.9 % (0-5); LYMPHOCYTES 33.8 % (15-50); MCH 25.9 pg (26.0-34.0); MCHC 31.8 g/dL (31.0-37.0); MCV 81.4 fL (80.0-100.0); MEAN PLATELET VOLUME 9.8 fL (7.4-10.4); MONOCYTES 8.3 % (2-11); NEUTROPHILS 55.9 % (40-80); PLATELET COUNT 371 10x3/uL (130-400); RBC 4.09 10x6/uL (4.00-5.40); RDW 13.8 % (11.5-14.5)
[2018-12-11 11:40] VITALS: BP 115/68
--- NOTE | 2018-12-11 13:20 | NUR ---
RESTING QUIETLY IN BED. MOM AT BEDSIDE. DENIES NEEDS.
[2018-12-11 16:43] VITALS: BP 126/81
[2018-12-11] MEDS ORDERED: LOVENOX INJ100 MG/ML SC (17:07)
[2018-12-11] MEDS ORDERED: COUMADIN10 MG PEG (17:08)
--- NOTE | 2018-12-11 17:19 | MORECARE ---
CASE MANAGEMENT DISCHARGE SUMMARY PATIENT: CINDIMarch UNIT: [id number] ADM DATE: 12/06/18 AGE: 38 : [birth year] SEX: F ROOM/BED: D.1203 AUTHOR: MILLICENTDOC PHYSICIAN: REFERRING PHYSICIAN: MANA HAZEL MD DATE OF SERVICE: 12/11/18 Discharge Plan Patient Name: [facility]INDIMarch [facility] : 1980 Planned Disposition: Anticipated Discharge Date: Discharge Date: Expected LOS: Initial Reviewer: [email or web address] Initial Review Date: 12/11/2018 Generated: 12/11/18 6:19 pm Comments DCP- Discharge Planning Updated by [email or web address]: Tonja Navarrete on 12/11/18 4:[address] Patient Name: March CINDI Admission Status: ER Accout number: [id number] Admission Date: 12-06-2018 : 1980 Admission Diagnosis: Attending: MANA HAZEL Current LOS: 5 Anticipated DC Date: Planned Disposition: Primary Insurance: WE[employer]ICARE ADV Discharge Planning Comments: CM SPOKE WITH ALLA CARPIO ABOUT LOVENOX FOR PATIENT. PATIENT CAN'T AFFORD IT AN INSURANCE WON'T COVER IT. ALLA GAVE ME AUTH TO GET 5 DOSES OF LOVENOX 100MG FROM THE HOSPITAL PHARMACY AND 5 DOSES OF LOVENOX THAT THE PATIENT CAN SHINGLES ROOFER FRIDAY FROM [facility]. PATIENT TO CALL [facility] AT [phone] TO MAKE SURE ITS IN BEFORE SHE PICKS IT UP. CM SPOKE WITH PHARMACISTS KOKO SIFUENTES AT [facility] AND RONLAD AT [facility]. PATIENT TO BE DISCHARGED AFTER HER EVENING DOSE OF LOVENOX. Dairy Scientist: Tonja Navarrete DCP- Discharge Planning Updated by [email or web address]: Raisa Pineda on 12/07/18 4:[address] 1700 CM MET WITH PATIENT IN THE ROOM. EXPLAINED OBSERVATION STATUS AND SZYMANSKI NOTIFICATION. HER SPOUSE, ADALID, WAS AT THE BEDSIDE. SHE GIVES PERMISSION FOR ADALID AND HER BEST FRIEND, CINDY PARTIDA, TO BE PRESENT DURING DISCUSSIONS OF CARE. PATIENT DINNER JUST ARRIVED. SHE WOULD LIKE TO EAT. SHE STATED CM COULD GET HER SIGNATURES FIRST. SZYMANSKI SIGNATURES OBTAINED. COPY T THE PATIENT AND SIGNED COPY TO THE CHART. PATIENT DISCHARGED 12/02/18. READMITTED 12/06/18. SHE WAS TO DISCUSS HOME HEALTH CARE W/ DR HELLER, HER PCP. DME PROVIDER- [facility] [address]. WILL VERIFY WHEN ASSESSED. Coverage Notice Reviewer: [email or web address] - Raisa Pineda Notice Issued Date-Time: 12/07/2018 17:01 Notice Type: Medicare Outpatient Observation Notice Notice Delivered To: Patient Relationship to Patient: Inspector Government Property Name: Delivery Method: HAND - Hand Delivered Anu Days: Prior Verbal Notification: Recipient Understood Notice: Yes Recipient Signature: Yes Med Rec Note Co-signed by Attending: Coverage Notice Comment: cm discussed observation status with the patient. she states her doctor stated she would be here another 2-3 days. Explained status will be reviewed again after additional documentation reviewed Patient Name: CINDI MARCH Page [phone] at 1719 All edits/amendments must be made on the electronic document DICTATION DATE: 12/11/181717 LSW: NADIA 12/11/181717 RPT#: [id number] DC DATE: STATUS: ADM IN [facility] [address] [place] [address] END OF REPORT
[2018-12-11 20:36] VITALS: BP 115/66
--- NOTE | 2018-12-14 10:31 | MORECARE ---
CASE MANAGEMENT DISCHARGE SUMMARY PATIENT: CINDIMarch UNIT: [id number] ADM DATE: 12/06/18 AGE: 38 : [birth year] SEX: F ROOM/BED: D.1203 AUTHOR: MILLICENTDOC PHYSICIAN: REFERRING PHYSICIAN: MANA HAZEL MD DATE OF SERVICE: 12/14/18 Discharge Plan Patient Name: CINDIMarch [facility] [facility] 1980 Planned Disposition: Anticipated Discharge Date: Discharge Date: 12/11/2018 Expected LOS: Initial Reviewer: [email or web address] Initial Review Date: 12/11/2018 Generated: 12/14/18 11:31 am Comments DCP- Discharge Planning Updated by [email or web address]: Tonja Navarrete on 12/11/18 4:[address] Patient Name: March CINDI Admission Status: ER Accout number: [id number] Admission Date: 12-06-2018 : 1980 Admission Diagnosis: Attending: MANA HAZEL Current LOS: 5 Anticipated DC Date: Planned Disposition: Primary Insurance: WE[employer] MEDICARE ADV Discharge Planning Comments: CM SPOKE WITH ALLA CARPIO ABOUT LOVENOX FOR PATIENT. PATIENT CAN'T AFFORD IT AN INSURANCE WON'T COVER IT. ALLA GAVE ME AUTH TO GET 5 DOSES OF LOVENOX 100MG FROM THE HOSPITAL PHARMACY AND 5 DOSES OF LOVENOX THAT THE PATIENT CAN THERMODYNAMICIST FRIDAY FROM [facility]. PATIENT TO CALL [facility] AT [phone] TO MAKE SURE ITS IN BEFORE SHE PICKS IT UP. CM SPOKE WITH PHARMACISTS KOKO SIFUENTES AT [facility] AND RONALD AT [facility]. PATIENT TO BE DISCHARGED AFTER HER EVENING DOSE OF LOVENOX. Plastic Surgery Assistant: Tonja Navarrete DCP- Discharge Planning Updated by [id number]: Raisa Pineda on 12/07/18 4:[address] 1700 CM MET WITH PATIENT IN THE ROOM. EXPLAINED OBSERVATION STATUS AND SZYMANSKI NOTIFICATION. HER SPOUSE, ADALID, WAS AT THE BEDSIDE. SHE GIVES PERMISSION FOR ADALID AND HER BEST FRIEND, CINDY PARTIDA, TO BE PRESENT DURING DISCUSSIONS OF CARE. PATIENT DINNER JUST ARRIVED. SHE WOULD LIKE TO EAT. SHE STATED CM COULD GET HER SIGNATURES FIRST. SZYMANSKI SIGNATURES OBTAINED. COPY T THE PATIENT AND SIGNED COPY TO THE CHART. PATIENT DISCHARGED 12/02/18. READMITTED 12/06/18. SHE WAS TO DISCUSS HOME HEALTH CARE W/ DR HELLER, HER PCP. [facility] [address]. WILL VERIFY WHEN ASSESSED. Coverage Notice Reviewer: [email or web address] Hollie Raisa [place] Notice Issued Date-Time: 12/07/2018 17:01 Notice Type: Medicare Outpatient Observation Notice Notice Delivered To: Patient Relationship to Patient: Latin Teacher Name: Delivery Method: HAND - Hand Delivered Anu Days: Prior Verbal Notification: Recipient Understood Notice: Yes Recipient Signature: Yes Med Rec Note Co-signed by Attending: Coverage Notice Comment: cm discussed observation status with the patient. she states her doctor stated she would be here another 2-3 days. Explained status will be reviewed again after additional documentation reviewed Last DP export: 12/11/18 4:19 p Patient Name: CINDIMarch Page [phone] at 1031 All edits/amendments must be made on the electronic document DICTATION DATE: 12/14/18 1030 WINDOWS SERVER ADMINISTRATOR: NADIA 12/14/18 1030 RPT#: [id number] DC DATE:12/11/18 STATUS: DIS IN [place] [id number] [place] [address] END OF REPORT
[2018-12-14 21:08] LABS: FACTOR II DNA ANALYSIS Negative (())
== END 2018-12-11 22:06 | disposition home or self-care (01) ==
LOC: D.ER 13:17 → D.EDHOLD 17:05 → D.M3 17:05 → OBSVTIME 17:05 → D.EDHOLD 17:05 → D.MS 17:26 → D.M3 22:31
PROVIDERS: Emergency Medicine; Family Medicine; Internal Medicine Hematology & Oncology; ADMIT Internal Medicine Nephrology
DX: I26.99 Other pulmonary embolism without acute cor pulmonale (principal); I10 Essential (primary) hypertension; E11.43 Type 2 diabetes mellitus with diabetic autonomic (poly)neuropathy; K31.84 Gastroparesis; G40.909 Epilepsy, unspecified, not intractable, without status epilepticus; K21.9 Gastro-esophageal reflux disease without esophagitis; F32.9 Major depressive disorder, single episode, unspecified; F44.81 Dissociative identity disorder

== ENCOUNTER 2019-05-13 22:49 | Emergency (ER) | payer MEDICARE ==
[~2019-05-13] VITALS: Ht 160 cm; Wt 118.2 kg
[~2019-05-13 22:49] MED LIST changes: +COUMADIN10 MG PEG; +LOVENOX INJ100 MG/ML SC
[2019-05-13 22:52] VITALS: Ht 160 cm; Wt 118.2 kg
[2019-05-14 01:59] VITALS: BP 137/84
== END 2019-05-14 02:16 | disposition home or self-care (01) ==
LOC: D.ER 22:49
DX: K94.13 Enterostomy malfunction (principal)

== ENCOUNTER → 2019-05-17 15:40 | Outpatient (CLI) | payer MEDICARE ==
[2019-05-13 22:52] VITALS: BMI 46.1
[~2019-05-17 15:40] MED LIST changes: +XARELTO20 MG PO
[2019-05-17 15:55] LABS: BASOPHILS 0.1 % (0-2); EOSINOPHILS 0 % (0-7); HEMATOCRIT 33.9 % (36.0-48.0); HEMOGLOBIN 10.8 g/dL (12-16); IMMATURE GRANULOCYTES 1.1 % (0-5); MCH 25.8 pg (26.0-34.0); MCHC 31.9 g/dL (31.0-37.0); MCV 81.1 fL (80.0-100.0); MEAN PLATELET VOLUME 9.1 fL (7.4-10.4); MONOCYTES 8.3 % (2-11); NEUTROPHILS 67.5 % (40-80); PLATELET COUNT 381 10x3/uL (130-400); RBC 4.18 10x6/uL (4.00-5.40); RDW 17.1 % (11.5-14.5); WBC 12.3 10x3/uL (4.8-10.8)
[2019-05-17 16:34] LABS: ALBUMIN 3.5 g/dL (3.4-5.0); ALKALINE PHOSPHATASE 110 U/L (46-116); ALT (SGPT) 37 U/L (10-68); CALC OSMOLALITY 277 mosm/kg (275-300); CARBON DIOXIDE 23.1 mmol/L (21.0-32.0); CHLORIDE - SERUM 103 mmol/L (98-107); CHOL - HDL RATIO 6.5 ratio (2.3-4.1); CHOLESTEROL, TOTAL 214 mg/dL (0-200); CREATININE - SERUM 0.6 mg/dL (0.6-1.3); GLUCOSE 129 mg/dL (74-106); HCG - QUANTITATIVE (MATERNAL) 0 mIU/mL; HDL CHOLESTEROL 33 mg/dL (32-96); LDL CHOLESTEROL 135 mg/dL (0-100); LDL-HDL RATIO 4.1 ratio (1.5-3.5); POTASSIUM - SERUM 3.5 mmol/L (3.5-5.1); SODIUM 140 mmol/L (136-145); THYROID STIMULATING HORMONE 0.31 uIU/mL (0.36-3.74); TRIGLYCERIDE 232 mg/dL (30-200); UREA NITROGEN 5 mg/dL (7-18); eGFR NON AFRICAN AMERICAN > 90 mL/min (90-120)
== END | disposition home or self-care (01) ==
LOC: D.LABREF 15:40
PROVIDERS: ATTEND Family Medicine
DX: B99.9 Unspecified infectious disease (principal)

== ENCOUNTER 2019-05-19 18:39 | Emergency (ER) | payer MEDICARE ==
[~2019-05-19] VITALS: Ht 160 cm; Wt 118.2 kg
[~2019-05-19 18:39] MED LIST changes: -XARELTO20 MG PO
[2019-05-19 19:06] VITALS: Ht 160 cm; Wt 118.2 kg
[2019-05-19] MEDS ORDERED: XARELTO20 MG PO (19:07)
[2019-05-19 19:39] LABS: BASOPHILS 0.1 % (0-2); EOSINOPHILS 0 % (0-7); HEMATOCRIT 33.9 % (36.0-48.0); IMMATURE GRANULOCYTES 0.5 % (0-5); LYMPHOCYTES 20.8 % (15-50); MCH 26.1 pg (26.0-34.0); MCHC 32.4 g/dL (31.0-37.0); MCV 80.3 fL (80.0-100.0); MEAN PLATELET VOLUME 8.9 fL (7.4-10.4); MONOCYTES 10.3 % (2-11); NEUTROPHILS 68.3 % (40-80); PLATELET COUNT 348 10x3/uL (130-400); RBC 4.22 10x6/uL (4.00-5.40); RDW 16.6 % (11.5-14.5); WBC 13.2 10x3/uL (4.8-10.8)
[2019-05-19 19:48] LABS: PROTIME 12.7 SECONDS (11.6-15.0)
[2019-05-19 19:49] LABS: APTT 30.1 SECONDS (22.8-39.4)
[2019-05-19 20:10] LABS: ALBUMIN 3.6 g/dL (3.4-5.0); ALKALINE PHOSPHATASE 119 U/L (46-116); ALT (SGPT) 67 U/L (10-68); BILIRUBIN - TOTAL 0.23 mg/dL (0.2-1.3); CALC OSMOLALITY 282 mosm/kg (275-300); CALCIUM 9.3 mg/dL (8.5-10.1); CARBON DIOXIDE 28.8 mmol/L (21.0-32.0); CHLORIDE - SERUM 104 mmol/L (98-107); CREATININE - SERUM 0.8 mg/dL (0.6-1.3); GLUCOSE 106 mg/dL (74-106); POTASSIUM - SERUM 3.8 mmol/L (3.5-5.1); PROTEIN - SERUM 8.4 g/dL (6.4-8.2); SODIUM 143 mmol/L (136-145); UREA NITROGEN 8 mg/dL (7-18); eGFR NON AFRICAN AMERICAN 85 mL/min (90-120)
[2019-05-20] MEDS ORDERED: TYLENOL W/CODEI1 TAB PO (00:39)
[2019-05-20 01:01] VITALS: BP 156/106
== END 2019-05-20 01:03 | disposition home or self-care (01) ==
LOC: D.ER 18:39
PROVIDERS: Family Medicine
DX: R06.00 Dyspnea, unspecified (principal); D64.9 Anemia, unspecified

== ENCOUNTER → 2019-06-17 07:15 | Outpatient (CLI) | payer MEDICARE ==
[2019-05-19 19:06] VITALS: BMI 46.1
--- NOTE | ~2019-06-17 | HEMODYNAMI ---
PATIENT:ALISTAIR PUENTE MEDICAL RECORD: [id number] : 82 LOCATION:DYumikoSAMIRA ADMISSION DATE: 06/17/19 Generatedon:06/17/20199:19 Patient name: ALISTAIR PUENTE Patient #: [id number] SSN: : 1980 Date of study: 06/17/2019 Page: Of Hemodynamic Procedure Report Patient Data Patient Demographics Procedure consent was obtained First Name: MARCH Gender: Female Last Name: CINDI : 1980 Middle Initial: D Age: 38 year(s) Patient #: [id number] Race: Unknown Additional ID: [id number] Contact details Address: [address] [place] [address] State: [place] City: [place] Zip code: [address] Past Medical History Allergies: No known allergies Admission Admission Data Admission Date: 06/17/2019 Admission Time: 7:15 Procedure Procedure Types Cath Procedure Peripheral Cath Diagnostic Procedure Miscellaneous Procedure Description Procedure Date Procedure Date: 06/17/2019 Procedure Start Time: 8:56 Procedure Staff Name Function Tone Vazquez MD Performing Physician Abhinav Schultz RT Monitor Procedure Data Cath Procedure Fluoroscopy Diagnostic fluoroscopy Total fluoroscopy Time: 2.2 time: 2.2 min min Diagnostic fluoroscopy Total fluoroscopy dose: 26 dose: 26 mGy mGy Contrast Material Contrast Material Type Amount (ml) Isovue 300 5 Hemodynamics Rest Pre Cath Intra NCS Post Cath Procedure Log Time Note 8:29:46 Abhinav Schultz RT (R) (CV) sent for patient. Start room use. 8:29:47 Time tracking: Regular hours (M-F 7:00 - 5:00) 8:29:52 Patient received from Outpatients to IR Alert and oriented. Tansferred to table in Supine position. 8:29:53 Correct patient and procedure confirmed by team. 8:29:54 Signed procedure consent form obtained from patient. 8:29:57 Full Disclosure recording started 8:30:00 8:30:02 Pre-procedure instructions explained to patient. 8:30:03 Pre-op teaching completed and patient verbalized understanding. 8:30:10 Patient allergic to No known allergies 8:56:11 8:56:13 Physician arrived 8:56:13 --------ALL STOP TIME OUT------ 8:56:14 Final Timeout: patient, procedure, and site verified with staff and physician. All members of the team are in agreement. 8:56:20 Sedation plan: None Medication:Lidocaine 8:56:25 Left chest site verified by team. 8:56:49 Procedure started. 8:57:17 lt.upper chest prepped and port accessed by Dr. Vazquez 9:17:44 Procedure ended.(Physican Out) 9:18:16 Contrast amount:Isovue 300 5ml. 9:18:26 Fluoroscopy dose: 26 mGy 9:18:26 Flurop Dose total: 26 9:18:47 Fluoroscopy time 02.20 minutes. 9:19:22 moore needle removed pt sent home Signature Audit Tracy Stage Time Signature Unsigned Intra-Procedure 06/17/2019 Abhinav 9:19:35 AM Marion RT (R) (CV) Signatures Monitor : Abhinav Signature : Marion RT Date : Time : [facility] [address] [facility] [place] [address]
[~2019-06-17 07:15] MED LIST changes: +NEURONTIN 300300 MG PO; +OMNICEF250 MG/5 M PO; +XARELTO20 MG PO
== END | disposition home or self-care (01) ==
LOC: D.SP 07:15
PROVIDERS: ATTEND Surgery
DX: T82.594A Other mechanical complication of infusion catheter, initial encounter (principal); Z01.812 Encounter for preprocedural laboratory examination

== ENCOUNTER 2019-06-17 23:25 | Inpatient (IN) | payer MEDICARE ==
[~2019-06-17] VITALS: Ht 160 cm; Wt 117.1 kg
[~2019-06-17 23:25] MED LIST changes: -NEURONTIN 300300 MG PO; -OMNICEF250 MG/5 M PO
[2019-06-18 00:37] LABS: BASOPHILS 0.1 % (0-2); EOSINOPHILS 0 % (0-7); HEMATOCRIT 35.7 % (36.0-48.0); HEMOGLOBIN 11.5 g/dL (12-16); IMMATURE GRANULOCYTES 0.2 % (0-5); LYMPHOCYTES 17.3 % (15-50); MCH 25.8 pg (26.0-34.0); MCHC 32.2 g/dL (31.0-37.0); MCV 80.2 fL (80.0-100.0); MEAN PLATELET VOLUME 9.2 fL (7.4-10.4); MONOCYTES 8.1 % (2-11); NEUTROPHILS 74.3 % (40-80); RBC 4.45 10x6/uL (4.00-5.40); RDW 15.9 % (11.5-14.5); WBC 9.7 10x3/uL (4.8-10.8)
[2019-06-18 00:38] LABS: PLATELET COUNT 265 10x3/uL (130-400)
[2019-06-18 00:49] LABS: ALBUMIN 3.6 g/dL (3.4-5.0); ALKALINE PHOSPHATASE 113 U/L (46-116); ALT (SGPT) 31 U/L (10-68); AMYLASE - SERUM 133 U/L (25-115); BILIRUBIN - TOTAL 0.23 mg/dL (0.2-1.3); CALC OSMOLALITY 276 mosm/kg (275-300); CALCIUM 8.9 mg/dL (8.5-10.1); CARBON DIOXIDE 26.5 mmol/L (21.0-32.0); CHLORIDE - SERUM 101 mmol/L (98-107); CREATININE - SERUM 0.8 mg/dL (0.6-1.3); GLUCOSE 132 mg/dL (74-106); MAGNESIUM - SERUM 1.9 mg/dL (1.8-2.4); POTASSIUM - SERUM 3.3 mmol/L (3.5-5.1); PROTEIN - SERUM 8.1 g/dL (6.4-8.2); SODIUM 138 mmol/L (136-145); UREA NITROGEN 10 mg/dL (7-18); eGFR NON AFRICAN AMERICAN 85 mL/min (90-120)
[2019-06-18 00:53] LABS: LIPASE 2616 U/L (73-393)
--- NOTE | 2019-06-18 03:35 | NUR ---
PT ARRIVED ON FLOOR BY VIA WHEELCHAIR. PT IN BED. ASSESMENT COMPLETED. NO S/S OF DISTRESS. BREATHING EVEN AND UNLABORED. PIV PATENT AND INTACTED. PT DENIES ANY NEEDS AT THIS TIME. WILL CONT WITH POC.
[2019-06-18] MEDS ORDERED: NEURONTIN 300300 MG PO (03:41)
[2019-06-18 03:55] VITALS: BP 141/48; BMI 45.8
--- NOTE | 2019-06-18 05:14 | NUR ---
PT REFUSED SCD'S AT THIS TIME.
--- NOTE | 2019-06-18 06:25 | NUR ---
PT RESTING ON LT SIDE. NO S/S OF DISTRESS. BREATHING EVEN AND UNLABORED. PIV PATENT AND INTACTED. PT DENIES ANY NEEDS AT THIS TIME. WILL CONT WITH POC.
--- NOTE | 2019-06-18 07:50 | NUR ---
RECIEVED REPORT FROM BHANU RIDLEY. PT RESTING IN BED AT THIS TIME. RR EVEN AND UNLABORED. PT AWAKES TO VOICE. NO S/S OF DISTRESS AT THIS TIME. FAMILY AT BEDSIDE. BED LOW CALL LIGHT WITHIN REACH. PT REFUSES SCD'S. WILL CONTINUE TO MONITOR.
[2019-06-18 09:49] VITALS: BP 121/77
--- NOTE | 2019-06-18 11:00 | NUR ---
PT COMPLAINED OF 8/10 PAIN IN ABD. PRN PAIN MED GIVEN. PT UP IN SHOWER. NO S/S OF DISTRESS.
[2019-06-18 12:18] VITALS: Ht 160 cm; Wt 117.1 kg
[2019-06-18 12:21] VITALS: BP 120/76
--- NOTE | 2019-06-18 15:27 | NUR ---
RESTS IN BED WITH EYES CLOSED. IV PATENT. CALL LIGHT IN REACH. WILL CONT. PLAN OF CARE.
--- NOTE | 2019-06-18 16:50 | NUR ---
I have reviewed this patient and I concur with the Shift Assessment completed by the Licensed Practical Nurse today this shift.
[2019-06-18 17:00] LABS: APPEARANCE HAZY (CLEAR); BILIRUBIN NEGATIVE (NEGATIVE); COLOR RED (YELLOW); GLUCOSE NEGATIVE (NEGATIVE); KETONE NEGATIVE (NEGATIVE); NITRITE NEGATIVE (NEGATIVE); PROTEIN TRACE mg/dL (NEGATIVE); SPECIFIC GRAVITY 1.015 (1.005-1.020); UROBILINOGEN NORMAL (NORMAL)
[2019-06-18 17:01] LABS: BACTERIA FEW /hpf (NONE SEEN); RED CELLS - URINE >50 /hpf (0-5); WHITE CELLS - URINE OCC /hpf (0-5)
[2019-06-18 17:31] VITALS: BP 138/81
--- NOTE | 2019-06-18 17:57 | NUR ---
PT GIVEN ICE CHIPS PER DR. HAZEL.
--- NOTE | 2019-06-18 19:30 | NUR ---
PT RESTING IN BED WATCHING TV. ALERT AND ORIENTED X3. VOICED COMPLAINT OF ABD PAIN LEVEL OF 9 AND NAUSEA. MEDICATED PER MAR. IV INFUSING TO RIGHT HAND WITHOUT DIFFICULTY. J TUBE TO LOWER ABD. NOTED. PEG TUBE NOTED TO UPPER ABD. PT STATES SHE USES THIS TO RELEASE PRESSURE WHEN SHE FEELS BAD GASTRIC PROBLEMS. SR'S ARE UP X 2 IN BED. CALL LIGHT AND BEDSIDE TABLE ARE WITHIN EASY REACH,.
[2019-06-18 20:00] VITALS: BP 130/72
--- NOTE | 2019-06-18 22:13 | NUR ---
PT IS RESTING QUIETLY IN BED WITH EYES CLOSED. RESPS ARE EVEN AND UNLABORED. NO ACUTE DISTRESS NOTED.
[2019-06-19] VITALS: BP 111/67; BP 123/54
--- NOTE | 2019-06-19 01:40 | NUR ---
PATIENT COMPLAINS OF SHARP PAIN IN ABD RATING AN 8 ON PAIN SCALE. MEDICATIONS ADINISTERED PER JAN. NO THER NEEDS AT THIS TIME CALL LIGTH WHEN REACH AND BED IN LOWEST POSTIION.
--- NOTE | 2019-06-19 03:56 | NUR ---
I have reviewed this patient and I concur with the Shift Assessment completed by the Licensed Practical Nurse today this shift.
[2019-06-19 04:28] LABS: BASOPHILS 0.1 % (0-2); EOSINOPHILS 0.1 % (0-7); HEMATOCRIT 32.3 % (36.0-48.0); HEMOGLOBIN 10.1 g/dL (12-16); IMMATURE GRANULOCYTES 0.2 % (0-5); LYMPHOCYTES 26.7 % (15-50); MCH 25.6 pg (26.0-34.0); MCHC 31.3 g/dL (31.0-37.0); MEAN PLATELET VOLUME 9.2 fL (7.4-10.4); MONOCYTES 9.2 % (2-11); NEUTROPHILS 63.7 % (40-80); RBC 3.94 10x6/uL (4.00-5.40); WBC 8.5 10x3/uL (4.8-10.8)
[2019-06-19 04:30] VITALS: BP 110/50
[2019-06-19 04:43] LABS: PLATELET COUNT 209 10x3/uL (130-400)
[2019-06-19 04:56] LABS: AMYLASE - SERUM 48 U/L (25-115); CALC OSMOLALITY 276 mosm/kg (275-300); CALCIUM 8.4 mg/dL (8.5-10.1); CARBON DIOXIDE 26.3 mmol/L (21.0-32.0); CHLORIDE - SERUM 106 mmol/L (98-107); CHOL - HDL RATIO 6.5 ratio (2.3-4.1); CHOLESTEROL, TOTAL 187 mg/dL (0-200); CREATININE - SERUM 0.7 mg/dL (0.6-1.3); GLUCOSE 109 mg/dL (74-106); HDL CHOLESTEROL 29 mg/dL (32-96); LDL CHOLESTEROL 117 mg/dL (0-100); LIPASE 479 U/L (73-393); POTASSIUM - SERUM 3.4 mmol/L (3.5-5.1); SODIUM 139 mmol/L (136-145); TRIGLYCERIDE 205 mg/dL (30-200); UREA NITROGEN 7 mg/dL (7-18); eGFR NON AFRICAN AMERICAN > 90 mL/min (90-120)
[2019-06-19 08:06] VITALS: BP 137/73
[2019-06-19 12:26] VITALS: BP 122/77
[2019-06-19 12:57] LABS: % SATURATION 7 % (15-55); IRON 20 ug/dl (35-150); TOTAL IRON BIND CAPACITY 273 ug/dl (260-445); UNSAT IRON BIND CAPACITY 253 ug/dl (150-375)
[2019-06-19 15:59] VITALS: BP 131/79
[2019-06-19 20:00] VITALS: BP 139/76
--- NOTE | 2019-06-19 23:02 | NUR ---
INITIAL ROUNDS COMPLETED AT 1914 HRS. PT RESTING WITH EYES CLOSED. RESP EVEN AND REGULAR. ASSESSMENT COMPLETED AT 1929 HRS. PT REQUESTING PAIN AND NAUSEA MEDS AT THAT TIME. VSS. IV TO R HAND WITH NS AT 75CC/HR. IV PATENT. ALERT AND ORIENTED TO PERSON, PLACE AND TIME. HU. PALPABLE PERIPHERAL PULSES. PEG TUBE AND J-TUBE NOTED. PT STATES SHE REMOVES GASTRIC JUICES FROM PEG DAILY AND J-TUBE IS FOR MEDS ETC. ACTIVE BS NOTED. MORPHINE AND ZOFRAN SIVP GIVEN AT 1942 HRS. PM MEDS GIVEN PER ORDERS. RESTORIL 30MG VIA J-TUBE GIVEN AT 2209 HRS. PT CURRENTLY WATCHING TV. SR UP X2, CALL LIGHT WITHIN REACH.
[2019-06-20] VITALS: BP 126/66
--- NOTE | 2019-06-20 00:12 | NUR ---
PT AWAKE; DENIES ANY DISCOMFORT. FAMILY AT BEDSIDE.
--- NOTE | 2019-06-20 00:37 | NUR ---
SPOUSE BROUGHT PT JARROD REHMAN. PT STATED SHE THREW THEM UP. MORPHINE 2MG GIVEN FOR C/O SHARP ABD PAIN AND ZOFRAN 4MG IVP GIVEN FOR C/O N/V. SR UP X2 CALL LIGHT WITHIN REACH.
--- NOTE | 2019-06-20 02:16 | NUR ---
PT RESTING WITH EYES CLOSED. RESP EVEN AND REGULAR. SR UP X2, CALL LIGHT WITHIN REACH.
--- NOTE | 2019-06-20 04:01 | NUR ---
PT RESTING WITH EYES CLOSED. RESP EVEN AND REGULAR. SR UP X2, CALL LIGHT WITHIN REACH AND SPOUSE AT BEDSIDE.
[2019-06-20 04:30] VITALS: BP 108/71
[2019-06-20 05:24] LABS: CALC OSMOLALITY 280 mosm/kg (275-300); CALCIUM 8.3 mg/dL (8.5-10.1); CARBON DIOXIDE 27.4 mmol/L (21.0-32.0); CHLORIDE - SERUM 108 mmol/L (98-107); CREATININE - SERUM 0.7 mg/dL (0.6-1.3); GLUCOSE 153 mg/dL (74-106); POTASSIUM - SERUM 3.5 mmol/L (3.5-5.1); SODIUM 141 mmol/L (136-145); eGFR NON AFRICAN AMERICAN > 90 mL/min (90-120)
[2019-06-20 05:26] LABS: BASOPHILS 0.2 % (0-2); EOSINOPHILS 0.2 % (0-7); HEMATOCRIT 31.5 % (36.0-48.0); HEMOGLOBIN 9.9 g/dL (12-16); IMMATURE GRANULOCYTES 0.3 % (0-5); LYMPHOCYTES 33.6 % (15-50); MCH 25.6 pg (26.0-34.0); MCHC 31.4 g/dL (31.0-37.0); MCV 81.6 fL (80.0-100.0); MEAN PLATELET VOLUME 9.7 fL (7.4-10.4); MONOCYTES 11.2 % (2-11); NEUTROPHILS 54.5 % (40-80); PLATELET COUNT 221 10x3/uL (130-400); RBC 3.86 10x6/uL (4.00-5.40); RDW 15.7 % (11.5-14.5); WBC 6.4 10x3/uL (4.8-10.8)
[2019-06-20 05:33] LABS: UREA NITROGEN 5 mg/dL (7-18)
--- NOTE | 2019-06-20 06:25 | NUR ---
VSS THROUGHOUT NIGHT. PT STATES ZOFRAN AND MORPHIONE HELP HER ABD PAIN AND N/V. AM K+ 3.5. KCL 40 MEQ VIA J-TUBE PER ELECTROLYTE PROTOCOL. NEEDS MET; WILL CONTINUE TO MONITOR.
--- NOTE | 2019-06-20 07:30 | NUR ---
RESTING QUIETLY IN BED POSITIONED ON RIGHT SIDE. AWAKENED EASILY FOR ASSESSMENT. ALERT AND ORIENTED X 4 AND NO REQUESTS. DENIES ANY PAIN AT PRESENT TIME. IV REMAINS PATENT IN RIGHT HAND WITH NO REDNESS OR EDEMA NOTED AT SITE. PEG TUBE AND J TUBE PATENT. WILL CONTINUE POC.
[2019-06-20 07:40] VITALS: BP 157/98
[2019-06-20 12:00] VITALS: BP 131/85
[2019-06-20] MEDS ORDERED: OMNICEF250 MG/5 M PO (12:40)
--- NOTE | 2019-06-20 14:15 | NUR ---
I have reviewed this patient and I concur with the Shift Assessment completed by the Licensed Practical Nurse today this shift.
--- NOTE | 2019-06-20 14:45 | NUR ---
DISCHARGE INSTRUCTIONS REVIEWED WITH PT AND VERBALIZES UNDERSTANDING WITH NO QUESTIONS. IV DC'D RIGHT HAND WITH CATH TIP INTACT. LEFT FLOOR VIA W/C WITH ALL PERSONAL BELONGINGS, LEFT FACILILTY VIA PRIVATE VEHICLE WITH HER .
--- NOTE | 2019-06-21 08:24 | MORECARE ---
CASE MANAGEMENT DISCHARGE SUMMARY PATIENT: CINDIALISTAIR D UNIT: [id number] ADM DATE: 06/18/19 AGE: 38 : 82 SEX: F ROOM/BED: D.2101 AUTHOR: AZUL RICKS PHYSICIAN: REFERRING PHYSICIAN: MANA HAZEL MD DATE OF SERVICE: 06/21/19 Discharge Plan Patient Name: AKOSUAISHMAELMarch [facility] [facility] 1980 Planned Disposition: Home Anticipated Discharge Date: 06/20/19 Discharge Date: 06/20/2019 Expected LOS: 2 Initial Reviewer: [email or web address] Initial Review Date: 06/21/2019 Generated: 06/21/19 9:23 am Patient Name: ALISTAIR PUENTE Page [id number] at 0824 All edits/amendments must be made on the electronic document DICTATION DATE: 06/21/19822 HOSE SPRAYER: NADIA 06/21/19822 RPT#: [id number] DC DATE:06/20/19 STATUS: DIS IN [facility] [address] [facility] [place] [address] END OF REPORT
== END 2019-06-20 14:45 | disposition home or self-care (01) | DRG 438 ==
LOC: D.ER 23:25 → D.M2 06-18 02:33 → OBSVTIME 06-18 02:33 → D.M2 06-18 02:33
PROVIDERS: Emergency Medicine; ADMIT Internal Medicine Nephrology; ATTEND Internal Medicine Nephrology
PROC: B51V1ZZ Fluoroscopy of Other Veins using Low Osmolar Contrast (ICD-10-PCS; principal; 2019-06-17)
DX: K85.90 Acute pancreatitis without necrosis or infection, unspecified (principal); J69.0 Pneumonitis due to inhalation of food and vomit; Z68.42 Body mass index [BMI] 45.0-49.9, adult; D50.9 Iron deficiency anemia, unspecified; E87.6 Hypokalemia; E11.43 Type 2 diabetes mellitus with diabetic autonomic (poly)neuropathy; K31.84 Gastroparesis; Z86.73 Personal history of transient ischemic attack (TIA), and cerebral infarction without residual deficits; E66.01 Morbid (severe) obesity due to excess calories; R16.0 Hepatomegaly, not elsewhere classified

== ENCOUNTER 2019-08-12 14:08 | Inpatient (IN) | payer MEDICARE ==
[~2019-08-12] VITALS: Ht 160 cm; Wt 116.6 kg
[~2019-08-12 14:08] MED LIST changes: +NEURONTIN 300300 MG PO; +OMNICEF250 MG/5 M PO
[2019-08-12 14:41] LABS: BASOPHILS 0.1 % (0-2); EOSINOPHILS 0.1 % (0-7); HEMATOCRIT 34.2 % (36.0-48.0); HEMOGLOBIN 11.3 g/dL (12-16); IMMATURE GRANULOCYTES 0.4 % (0-5); LYMPHOCYTES 24.1 % (15-50); MCH 26.3 pg (26.0-34.0); MCV 79.5 fL (80.0-100.0); MEAN PLATELET VOLUME 9.2 fL (7.4-10.4); MONOCYTES 6.2 % (2-11); NEUTROPHILS 69.1 % (40-80); PLATELET COUNT 308 10x3/uL (130-400); RDW 14.6 % (11.5-14.5)
[2019-08-12 14:58] LABS: ALBUMIN 3.5 g/dL (3.4-5.0); ALKALINE PHOSPHATASE 113 U/L (46-116); ALT (SGPT) 27 U/L (10-68); BILIRUBIN - TOTAL 0.16 mg/dL (0.2-1.3); CALC OSMOLALITY 279 mosm/kg (275-300); CALCIUM 8.6 mg/dL (8.5-10.1); CARBON DIOXIDE 29.8 mmol/L (21.0-32.0); CHLORIDE - SERUM 105 mmol/L (98-107); CREATININE - SERUM 0.7 mg/dL (0.6-1.3); GLUCOSE 111 mg/dL (74-106); POTASSIUM - SERUM 3.3 mmol/L (3.5-5.1); PROTEIN - SERUM 7.7 g/dL (6.4-8.2); SODIUM 142 mmol/L (136-145); UREA NITROGEN 1 mg/dL (7-18); eGFR NON AFRICAN AMERICAN > 90 mL/min (90-120)
--- NOTE | 2019-08-12 15:02 | NUR ---
URINE COLLECTED AND SENT
[2019-08-12 15:03] LABS: AMYLASE - SERUM 37 U/L (25-115); LIPASE 214 U/L (73-393)
[2019-08-12 15:04] LABS: TROPONIN-I < 0.017 ng/mL (0.000-0.060)
[2019-08-12 15:10] LABS: APPEARANCE CLEAR (CLEAR); BILIRUBIN NEGATIVE (NEGATIVE); COLOR STRAW (YELLOW); GLUCOSE NEGATIVE (NEGATIVE); KETONE NEGATIVE (NEGATIVE); NITRITE NEGATIVE (NEGATIVE); PROTEIN NEGATIVE (NEGATIVE); UROBILINOGEN NORMAL (NORMAL)
[2019-08-12 15:12] LABS: BACTERIA FEW /hpf (NONE SEEN); EPITHELIAL CELLS 0-5 /hpf (0-5); RED CELLS - URINE OCC /hpf (0-5); WHITE CELLS - URINE OCC /hpf (0-5)
[2019-08-12 16:25] VITALS: BP 150/73
[2019-08-12 17:15] VITALS: BP 174/85
[2019-08-12 18:06] VITALS: BP 141/85
--- NOTE | 2019-08-12 18:12 | NUR ---
REPORT GIVEN TO AIXA, NURSE STATES ROOM NEEDS CLEANED, STATES SHE WILL CALL WHEN ROOM IS READY.
[2019-08-12 20:00] VITALS: BP 140/79
--- NOTE | 2019-08-12 20:00 | NUR ---
RECEIVED PT FROM ER VIA W/C. GEN WEAKNESS NOTED. ALERT AND ORIENTED X4. REPORTS PAIN IN ABD 6. STATES SHE HAS CHRONIC DIARRHEA. PT HAS GTUBE TO LUQ AND JTUBE TO LLQ. STATES SHE VOMITS EVERY TIME SHE TAKES SOMETHING BY MOUTH SO SHE USES THE JTUBE FOR FEEDING AND MEDS. HAS HX OF SEIZURES. NS @ 125 ML/HR INFUSING IN RT HAND. ZOFRAN DRIP INFUSING. V/S STABLE. RESP EVEN AND NONLABORED. NOTIFIED MAHESH WALL OF PT ARRIVAL AND NEED FOR REVIEW OF MED REC. CL IN REACH.
[2019-08-12 22:28] VITALS: BP 140/79; BMI 45.6
--- NOTE | 2019-08-12 22:50 | NUR ---
MEDICATED WITH TYLENOL #3 PER JTUBE FOR C/O PAIN IN ABD. CL IN REACH. FAMILY AT BEDSIDE.
[2019-08-13 00:05] VITALS: BP 126/62
--- NOTE | 2019-08-13 02:57 | NUR ---
RESTING QUIETLY WITH EYES CLOSED. RESP EVEN AND NONLABORED. FAMILY AT BEDSIDE. CL IN REACH.
[2019-08-13 03:46] VITALS: BP 125/60
--- NOTE | 2019-08-13 03:59 | NUR ---
HAS RESTED WELL SO FAR. NO VOMITING. STATES SHE FEELS BETTER. CL IN REACH.
[2019-08-13 07:08] LABS: BASOPHILS 0 % (0-2); EOSINOPHILS 0.2 % (0-7); HEMATOCRIT 31.7 % (36.0-48.0); HEMOGLOBIN 10.2 g/dL (12-16); IMMATURE GRANULOCYTES 0.3 % (0-5); LYMPHOCYTES 33.9 % (15-50); MCH 25.9 pg (26.0-34.0); MCHC 32.2 g/dL (31.0-37.0); MCV 80.5 fL (80.0-100.0); MEAN PLATELET VOLUME 9.3 fL (7.4-10.4); MONOCYTES 8.5 % (2-11); NEUTROPHILS 57.1 % (40-80); RBC 3.94 10x6/uL (4.00-5.40); RDW 14.8 % (11.5-14.5)
[2019-08-13 07:36] LABS: APTT 30.4 SECONDS (22.8-39.4); INR 1.04 (0.85-1.17); PROTIME 13.1 SECONDS (11.6-15.0)
[2019-08-13 07:39] LABS: PLATELET COUNT 148 10x3/uL (130-400); WBC 6.5 10x3/uL (4.8-10.8)
--- NOTE | 2019-08-13 07:48 | NUR ---
ALERT AND ORIENTED X4. GTUBE AND J- TUBE INTACT. ABDOMEN SOFT WITH BS HYPOACTIVE X4. IVF INFUSING AT PRESCRIBED RATE. GENERALIZED ABDOMINAL DISCOMFORT TO ABDOMEN NOTED. CONTINUES ZOFRAN GTT WITH NO NAUSEA AT THIS TIME. ENCOURAGED TO USE CALL LIGHT FOR ASSIST. LUNGS CTA AND HRRR.
[2019-08-13 07:55] VITALS: BP 109/77
[2019-08-13 08:58] LABS: ALKALINE PHOSPHATASE 99 U/L (46-116); ALT (SGPT) 24 U/L (10-68); BILIRUBIN - TOTAL 0.13 mg/dL (0.2-1.3); CALC OSMOLALITY 287 mosm/kg (275-300); CALCIUM 8.2 mg/dL (8.5-10.1); CARBON DIOXIDE 30.1 mmol/L (21.0-32.0); CHLORIDE - SERUM 107 mmol/L (98-107); CREATININE - SERUM 0.6 mg/dL (0.6-1.3); GLUCOSE 124 mg/dL (74-106); MAGNESIUM - SERUM 1.2 mg/dL (1.8-2.4); PHENYTOIN (DILANTIN) 1.7 ug/mL (10.0-20.0); PHOSPHOROUS 2.7 mg/dL (2.5-4.9); POTASSIUM - SERUM 3.4 mmol/L (3.5-5.1); PROTEIN - SERUM 6.3 g/dL (6.4-8.2); SODIUM 146 mmol/L (136-145); UREA NITROGEN 1 mg/dL (7-18); eGFR NON AFRICAN AMERICAN > 90 mL/min (90-120)
[2019-08-13 09:12] LABS: % SATURATION 13 % (15-55); IRON 36 ug/dl (35-150); TOTAL IRON BIND CAPACITY 262 ug/dl (260-445); UNSAT IRON BIND CAPACITY 226 ug/dl (150-375)
--- NOTE | 2019-08-13 09:36 | MORECARE ---
CASE MANAGEMENT DISCHARGE SUMMARY PATIENT: CINDIMarch UNIT: [id number] ADM DATE: 08/12/19 AGE: 39 : 82 SEX: F ROOM/BED: D.1211 AUTHOR: AZUL RICKS PHYSICIAN: REFERRING PHYSICIAN: MANA HAZEL MD DATE OF SERVICE: 08/13/19 Discharge Plan Patient Name: March Facility: [facility]:[place] : 1980 Planned Disposition: Home Anticipated Discharge Date: Discharge Date: Expected LOS: Initial Reviewer: [email or web address] Initial Review Date: 08/13/2019 Generated: 08/13/19 10:35 am Comments DCP- Discharge Planning Updated by [email or web address]: Tonja Navarrete on 08/13/19 8:[address] Patient Name: March CINDI Admission Status: ER Accout number: [id number] Admission Date: 08-12-2019 : 1980 Admission Diagnosis: Attending: MANA HAZEL Current LOS: 1 Anticipated DC Date: Planned Disposition: Home Primary Insurance: [employer] ADV Discharge Planning Comments: CM MET WITH PATIENT ABOUT DC PLANNING/NEEDS. STATES NO NEEDS. SHE STATES SHE HAS A FEEDING PUMP THROUGH [employer] AND DOES NOT NEED HH. CM TO FOLLOW AND ASSIST. Inspector Line: Tonja Navarrete DCPIA - Discharge Planning Initial Assessment Updated by [email or web address]: Tonja Navarrete on 08/13/19 9:30 am * Is the patient Alert and Oriented? Yes * PCP ARRON * Pharmacy [facility] * Preadmission Environment Home with Family * ADLs Independent * Other Equipment FEEDING PUMP, HAS J TUBE AND PEG TUBE * List name and contact numbers for known caregivers / representatives who currently or will assist patient after discharge: ADALID, , [phone] * Additional services required to return to the preadmission environment? No * Can the patient safely return to the preadmission environment? Yes * Has this patient been hospitalized within the prior 30 days at any hospital? No Patient Name: CINDIMarch Page [phone] at 0936 All edits/amendments must be made on the electronic document DICTATION DATE: 08/13/19934 DRAIN CLEANER PLUMBER: NADIA 08/13/19934 RPT#: [id number] DC DATE: STATUS: ADM IN [facility] [address] [place] [address] END OF REPORT
[2019-08-13 11:30] LABS: UDS - AMPHET NEGATIVE QUAL (NEGATIVE); UDS - BARB NEGATIVE QUAL (NEGATIVE); UDS - BENZO NEGATIVE QUAL (NEGATIVE); UDS - COCAINE NEGATIVE QUAL (NEGATIVE); UDS - OPIATE POSITIVE QUAL (NEGATIVE); UDS - PCP NEGATIVE QUAL (NEGATIVE); UDS - THC NEGATIVE QUAL (NEGATIVE)
[2019-08-13 12:00] VITALS: BP 134/81
[2019-08-13 12:44] VITALS: Ht 160 cm; Wt 116.6 kg
[2019-08-13 15:37] VITALS: BP 161/80
[2019-08-13 20:00] VITALS: BP 109/63
[2019-08-14] VITALS: BP 125/68
[2019-08-14 08:02] VITALS: BP 165/79
[2019-08-14 08:09] LABS: ALKALINE PHOSPHATASE 89 U/L (46-116); ALT (SGPT) 18 U/L (10-68); BILIRUBIN - TOTAL 0.15 mg/dL (0.2-1.3); CALCIUM 8.2 mg/dL (8.5-10.1); CARBON DIOXIDE 29.6 mmol/L (21.0-32.0); CHLORIDE - SERUM 110 mmol/L (98-107); CREATININE - SERUM 0.6 mg/dL (0.6-1.3); GLUCOSE 117 mg/dL (74-106); PHOSPHOROUS 3.2 mg/dL (2.5-4.9); POTASSIUM - SERUM 3.4 mmol/L (3.5-5.1); PROTEIN - SERUM 6.7 g/dL (6.4-8.2); SODIUM 146 mmol/L (136-145); eGFR NON AFRICAN AMERICAN > 90 mL/min (90-120)
[2019-08-14 08:14] LABS: CALC OSMOLALITY 287 mosm/kg (275-300); MAGNESIUM - SERUM 1.9 mg/dL (1.8-2.4); UREA NITROGEN 2 mg/dL (7-18)
[2019-08-14 12:22] VITALS: BP 145/77
--- NOTE | 2019-08-14 15:27 | NUR ---
GLUCERNA 1.0 STARTED AT PRESCRIBED RATE.
[2019-08-14 19:44] VITALS: BP 152/84
--- NOTE | 2019-08-14 23:40 | NUR ---
CHECKED PT'S RESIDUAL 5ML, FEEDING RATE UP TO 30ML/HR.
[2019-08-14 23:49] VITALS: BP 121/63
--- NOTE | 2019-08-15 01:22 | NUR ---
REST QUIETLY IN BED. CALL LIGHT IN REACH.
--- NOTE | 2019-08-15 04:12 | NUR ---
CHANGED FEEDING PUMP SET.
[2019-08-15 04:49] LABS: ALKALINE PHOSPHATASE 94 U/L (46-116); ALT (SGPT) 18 U/L (10-68); BILIRUBIN - TOTAL 0.14 mg/dL (0.2-1.3); CALCIUM 8.1 mg/dL (8.5-10.1); CARBON DIOXIDE 29.5 mmol/L (21.0-32.0); CHLORIDE - SERUM 107 mmol/L (98-107); GLUCOSE 125 mg/dL (74-106); POTASSIUM - SERUM 3.5 mmol/L (3.5-5.1); PROTEIN - SERUM 6.7 g/dL (6.4-8.2); SODIUM 143 mmol/L (136-145)
[2019-08-15 04:50] LABS: CALC OSMOLALITY 282 mosm/kg (275-300); CREATININE - SERUM 0.8 mg/dL (0.6-1.3); UREA NITROGEN 5 mg/dL (7-18); eGFR NON AFRICAN AMERICAN 85 mL/min (90-120)
--- NOTE | 2019-08-15 05:23 | NUR ---
I have reviewed this patient and I concur with the Shift Assessment completed by the Licensed Practical Nurse today this shift.
[2019-08-15 05:31] VITALS: BP 119/68
[2019-08-15 07:53] VITALS: BP 133/56
--- NOTE | 2019-08-15 08:00 | NUR ---
ALERT AND ORIENTED X4. NO RESIDUAL NOTED TO J-TUBE WITH GLUCERA 1.0 INCREASED TO 40CC/HR. G-TUBE INTACT WELL TO LUQ OF ABDOMEN. ABDOMEN SOFT WITH BS NOTED WITH GENERALIZED DISCOMFORT NOTED WITH TYPLENO#3 GIVEN AND EFFECTIVE. UP ADLIB TO BATHROOM. ENCOURAGED TO USE CALL LIGHT FOR ASSSIT.
--- NOTE | 2019-08-15 11:00 | NUR ---
IV DISCONTINUED AND VERBALIZED UNDERSTANDING OF DISCHARGE INSTRUCTIONS. STABLE AT TIME OF DISCHARGE AND LEFT POV WITH ASSIST OF FAMILY.
--- NOTE | 2019-08-15 19:31 | MORECARE ---
CASE MANAGEMENT DISCHARGE SUMMARY PATIENT: CINDIMarch UNIT: [id number] ADM DATE: 08/13/19 AGE: 39 : 82 SEX: F ROOM/BED: D.1211 AUTHOR: MILLICENT,DOC PHYSICIAN: REFERRING PHYSICIAN: MANA HAZEL MD DATE OF SERVICE: 08/15/19 Discharge Plan Patient Name: CINDIMarch Facility: [facility]:[place] : 1980 Planned Disposition: Home Anticipated Discharge Date: 08/15/19 Discharge Date: 08/15/2019 Expected LOS: 2 Initial Reviewer: [email or web address] Initial Review Date: 08/13/2019 Generated: 08/15/19 8:30 pm Comments DCP- Discharge Planning Updated by [email or web address]: Raisa Pineda on 08/15/19 6:[address] LATE ENTRY 1010 CM VISITED THE PATIENT'S ROOM. SHE WAS IN THE BATHROOM. SHE DENIED ANY NEEDS PER THE NURSE. GENTLEMAN AT THE BEDSIDE STATED SHE WAS "FINE". PATIENT HAD BEEN DISCHARGED WHEN CM RETURNED. DCP- Discharge Planning Updated by [id number]: Tonja Navarrete on 08/13/19 8:[address] Patient Name: March CINDI Admission Status: ER Accout number: [id number] Admission Date: 08-12-2019 : 1980 Admission Diagnosis: Attending: MANA HAZEL Current LOS: 1 Anticipated DC Date: Planned Disposition: Home Primary Insurance: [employer] ADV Discharge Planning Comments: CM MET WITH PATIENT ABOUT DC PLANNING/NEEDS. STATES NO NEEDS. SHE STATES SHE HAS A FEEDING PUMP THROUGH [employer] AND DOES NOT NEED HH. CM TO FOLLOW AND ASSIST. Leather Cleaner: Tonja Navarrete DCPIA - Discharge Planning Initial Assessment Updated by [email or web address]: Tonja Navarrete on 08/13/19 9:30 am * Is the patient Alert and Oriented? Yes * PCP ARRON * Pharmacy [facility] * Preadmission Environment Home with Family * ADLs Independent * Other Equipment FEEDING PUMP, HAS J TUBE AND PEG TUBE * List name and contact numbers for known caregivers / representatives who currently or will assist patient after discharge: ADALID, , [phone] * Additional services required to return to the preadmission environment? No * Can the patient safely return to the preadmission environment? Yes * Has this patient been hospitalized within the prior 30 days at any hospital? No Coverage Notice Reviewer: [email or web address] Hollie Navarrete Notice Issued Date-Time: 08/13/2019 12:55 Notice Type: IM Discharge Notice Notice Delivered To: Patient Relationship to Patient: Quarter Trimmer Name: Delivery Method: HAND - Hand Delivered Anu Days: Prior Verbal Notification: Recipient Understood Notice: Yes Recipient Signature: Yes Med Rec Note Co-signed by Attending: Coverage Notice Comment: Last DP export: 08/13/19 8:36 a Patient Name: CINDIMarch Page 58562 at 1931 All edits/amendments must be made on the electronic document DICTATION DATE: 08/15/191929 FRINGE KNOTTER: NADIA 08/15/191929 RPT#: [id number] DC DATE:08/15/19 STATUS: DIS IN [facility] [address] [place] [address] END OF REPORT
== END 2019-08-15 11:00 | disposition home or self-care (01) | DRG 74 ==
LOC: D.ER 14:08 → D.M3 17:41 → OBSVTIME 17:46 → D.M3 08-13 13:07
PROVIDERS: Family Medicine; ADMIT Internal Medicine Nephrology; ATTEND Internal Medicine Nephrology
DX: E11.43 Type 2 diabetes mellitus with diabetic autonomic (poly)neuropathy (principal); Z68.42 Body mass index [BMI] 45.0-49.9, adult; N17.9 Acute kidney failure, unspecified; K31.84 Gastroparesis; E87.6 Hypokalemia; D50.9 Iron deficiency anemia, unspecified; E66.01 Morbid (severe) obesity due to excess calories; J44.9 Chronic obstructive pulmonary disease, unspecified; F32.9 Major depressive disorder, single episode, unspecified; F41.9 Anxiety disorder, unspecified; I10 Essential (primary) hypertension; Z93.4 Other artificial openings of gastrointestinal tract status

== ENCOUNTER 2019-09-13 13:41 | Emergency (ER) | payer MEDICARE ==
[~2019-09-13] VITALS: Ht 160 cm; Wt 117.3 kg
[2019-09-13 13:44] VITALS: Ht 160 cm; Wt 117.3 kg
[2019-09-13 14:32] LABS: BASOPHILS 0.1 % (0-2); EOSINOPHILS 0 % (0-7); HEMATOCRIT 39.6 % (36.0-48.0); HEMOGLOBIN 12.6 g/dL (12-16); IMMATURE GRANULOCYTES 0.2 % (0-5); LYMPHOCYTES 13.8 % (15-50); MCH 26.4 pg (26.0-34.0); MCHC 31.8 g/dL (31.0-37.0); MCV 82.8 fL (80.0-100.0); MONOCYTES 5.1 % (2-11); NEUTROPHILS 80.8 % (40-80); RBC 4.78 10x6/uL (4.00-5.40); RDW 14.7 % (11.5-14.5); WBC 12.1 10x3/uL (4.8-10.8)
[2019-09-13 14:34] LABS: PLATELET COUNT 313 10x3/uL (130-400)
[2019-09-13 14:44] LABS: ALBUMIN 3.9 g/dL (3.4-5.0); ALKALINE PHOSPHATASE 102 U/L (46-116); ALT (SGPT) 22 U/L (10-68); BILIRUBIN - TOTAL 0.27 mg/dL (0.2-1.3); CALC OSMOLALITY 283 mosm/kg (275-300); CALCIUM 9.2 mg/dL (8.5-10.1); CARBON DIOXIDE 30.1 mmol/L (21.0-32.0); CHLORIDE - SERUM 104 mmol/L (98-107); CREATININE - SERUM 0.8 mg/dL (0.6-1.3); GLUCOSE 137 mg/dL (74-106); POTASSIUM - SERUM 3.6 mmol/L (3.5-5.1); PROTEIN - SERUM 8.4 g/dL (6.4-8.2); SODIUM 143 mmol/L (136-145); UREA NITROGEN 5 mg/dL (7-18); eGFR NON AFRICAN AMERICAN 85 mL/min (90-120)
[2019-09-13 14:49] LABS: AMYLASE - SERUM 35 U/L (25-115); LIPASE 172 U/L (73-393); TROPONIN-I < 0.017 ng/mL (0.000-0.060)
[2019-09-13 15:10] LABS: APPEARANCE CLEAR (CLEAR); BILIRUBIN NEGATIVE (NEGATIVE); COLOR YELLOW (YELLOW); GLUCOSE NEGATIVE (NEGATIVE); KETONE SMALL mg/dL (NEGATIVE); NITRITE NEGATIVE (NEGATIVE); PROTEIN TRACE mg/dL (NEGATIVE); UROBILINOGEN NORMAL (NORMAL)
[2019-09-13 22:33] VITALS: BP 150/88
== END 2019-09-13 22:34 | disposition home or self-care (01) ==
LOC: D.ER 13:41
PROVIDERS: Emergency Medicine
DX: E11.43 Type 2 diabetes mellitus with diabetic autonomic (poly)neuropathy (principal); K31.84 Gastroparesis; G40.909 Epilepsy, unspecified, not intractable, without status epilepticus

== ENCOUNTER 2019-09-14 16:33 | Observation (INO) | payer MEDICARE ==
[~2019-09-14] VITALS: Ht 160 cm; Wt 117.0 kg
[2019-09-14 17:32] VITALS: BP 142/88; BMI 45.8
[2019-09-14 17:50] LABS: BASOPHILS 0.2 % (0-2); EOSINOPHILS 0 % (0-7); HEMATOCRIT 36.7 % (36.0-48.0); HEMOGLOBIN 11.6 g/dL (12-16); IMMATURE GRANULOCYTES 0.3 % (0-5); LYMPHOCYTES 18.5 % (15-50); MCH 26.2 pg (26.0-34.0); MCHC 31.6 g/dL (31.0-37.0); MEAN PLATELET VOLUME 8.7 fL (7.4-10.4); MONOCYTES 6.8 % (2-11); NEUTROPHILS 74.2 % (40-80); PLATELET COUNT 291 10x3/uL (130-400); RBC 4.42 10x6/uL (4.00-5.40); RDW 14.8 % (11.5-14.5); WBC 11.7 10x3/uL (4.8-10.8)
--- NOTE | 2019-09-14 18:09 | NUR ---
PT STATED PAIN IS AT A 10/10. PT HAS PRN TYLENOL 3 AND STATED THAT SHE TAKES THAT AT HOME BUT IT DOES NOT WORK AND SHE NEEDS SOMETHING DIFFERENT, ADVISED TO GIVE IT TIME AND I WILL CALL DR IF STILL NOT WORKING. CONTINUE WITH PLAN OF CARE
[2019-09-14 18:17] LABS: ALBUMIN 3.7 g/dL (3.4-5.0); ALKALINE PHOSPHATASE 97 U/L (46-116); ALT (SGPT) 19 U/L (10-68); BILIRUBIN - TOTAL 0.24 mg/dL (0.2-1.3); CALC OSMOLALITY 280 mosm/kg (275-300); CALCIUM 8.8 mg/dL (8.5-10.1); CHLORIDE - SERUM 103 mmol/L (98-107); CREATININE - SERUM 0.7 mg/dL (0.6-1.3); GLUCOSE 118 mg/dL (74-106); POTASSIUM - SERUM 3.6 mmol/L (3.5-5.1); PROTEIN - SERUM 7.4 g/dL (6.4-8.2); SODIUM 142 mmol/L (136-145); UREA NITROGEN 4 mg/dL (7-18); eGFR NON AFRICAN AMERICAN > 90 mL/min (90-120)
[2019-09-14 18:19] LABS: INR 1.2 (0.85-1.17); PROTIME 14.7 SECONDS (11.6-15.0)
[2019-09-14 21:27] VITALS: BP 143/78
--- NOTE | 2019-09-15 00:25 | NUR ---
A&O X 4. DENIES PAIN AT THIS TIME. JTUBE AND GTUBE PRESENT ON LEFT SIDE OF ABDOMEN. SURROUNDING SKIN IS REDDENED AND SCABBED. GAUZE DRESSING APPLIED AND SECURED. PT STATES SHE NEEDS NEW TUBES PLACED. INFORMED HER TO RELAY TO AND WILL PASS IN REPORT. WILL CONTINUE TO MONITOR.
[2019-09-15 01:14] VITALS: BP 142/80
--- NOTE | 2019-09-15 02:40 | NUR ---
I have reviewed this patient and I concur with the Shift Assessment completed by the Licensed Practical Nurse today this shift.
[2019-09-15 04:55] LABS: APPEARANCE CLEAR (CLEAR); BILIRUBIN NEGATIVE (NEGATIVE); COLOR YELLOW (YELLOW); GLUCOSE NEGATIVE (NEGATIVE); KETONE NEGATIVE (NEGATIVE); NITRITE NEGATIVE (NEGATIVE); PROTEIN NEGATIVE (NEGATIVE); SPECIFIC GRAVITY 1.015 (1.005-1.020); UROBILINOGEN NORMAL (NORMAL)
[2019-09-15 05:15] VITALS: BP 154/63
--- NOTE | 2019-09-15 07:35 | NUR ---
PT RESTING IN BED, FAMILY AT BEDSIDE. PT REPORTS PAIN 10/10 AT THIS TIME WITH NAUSEA. PAIN MEDICATION AND NAUSEA MEDICATION ADMINISTERED PER MD ORDERS. IV TO LEFT HAND WITH LR @ 125ML/HR INFUSING VIA PUMP. SITE WITHOUT REDNESS OR EDEMA. G-TUBE PRESENT, PT VOICES SELF DRAINING. J-TUBE PRESENT AND INTACT. MEDICATIONS ADMINISTERED THROUGH SITE. PT DENIES FURTHER NEEDS AT THIS TIME. CL WITHIN REACH. ENCOURAGED TO CALL WITH NEEDS. CONTINUE POC
[2019-09-15 09:04] VITALS: BP 144/93
[2019-09-15 10:01] LABS: BASOPHILS 0.1 % (0-2); EOSINOPHILS 0 % (0-7); HEMATOCRIT 34.9 % (36.0-48.0); HEMOGLOBIN 10.9 g/dL (12-16); IMMATURE GRANULOCYTES 0.2 % (0-5); LYMPHOCYTES 20.2 % (15-50); MCH 25.9 pg (26.0-34.0); MCHC 31.2 g/dL (31.0-37.0); MCV 82.9 fL (80.0-100.0); MEAN PLATELET VOLUME 9.3 fL (7.4-10.4); MONOCYTES 5.8 % (2-11); NEUTROPHILS 73.7 % (40-80); PLATELET COUNT 279 10x3/uL (130-400); RBC 4.21 10x6/uL (4.00-5.40); RDW 14.7 % (11.5-14.5); WBC 8.8 10x3/uL (4.8-10.8)
[2019-09-15 10:15] LABS: ALBUMIN 3.4 g/dL (3.4-5.0); ALKALINE PHOSPHATASE 92 U/L (46-116); ALT (SGPT) 17 U/L (10-68); BILIRUBIN - TOTAL 0.16 mg/dL (0.2-1.3); CALC OSMOLALITY 288 mosm/kg (275-300); CARBON DIOXIDE 31.6 mmol/L (21.0-32.0); CHLORIDE - SERUM 107 mmol/L (98-107); CREATININE - SERUM 0.6 mg/dL (0.6-1.3); GLUCOSE 137 mg/dL (74-106); POTASSIUM - SERUM 3.2 mmol/L (3.5-5.1); PROTEIN - SERUM 6.8 g/dL (6.4-8.2); SODIUM 146 mmol/L (136-145); eGFR NON AFRICAN AMERICAN > 90 mL/min (90-120)
[2019-09-15 10:17] LABS: UREA NITROGEN 2 mg/dL (7-18)
[2019-09-15 12:46] VITALS: BP 130/83
[2019-09-15 13:48] VITALS: Ht 160 cm; Wt 117.0 kg
--- NOTE | 2019-09-15 16:15 | NUR ---
PT DISCHARGE INSTRUCTIONS PROVIDED. EDUCATION MATERIAL PROVIDED WELL FOLLOW UP APPOINTMENT. PT VOICES UNDERSTANDING, DENYING ANY QUESTIONS. PT AWAITING TRANSPORTATION HOME.
--- NOTE | 2019-09-15 17:05 | NUR ---
PT TAKEN OUT VIA W/C WITH ALL PERSONAL POSESSIONS
== END 2019-09-15 17:06 | disposition home or self-care (01) ==
LOC: D.MS 16:33 → D.SDCHOLD 16:33 → OBSVTIME 16:34 → D.MS 17:08
PROVIDERS: Family Medicine; ADMIT Family Medicine; ATTEND Family Medicine
DX: K31.84 Gastroparesis (principal); I10 Essential (primary) hypertension; J44.9 Chronic obstructive pulmonary disease, unspecified; F41.8 Other specified anxiety disorders; G40.909 Epilepsy, unspecified, not intractable, without status epilepticus; E66.01 Morbid (severe) obesity due to excess calories; Z68.42 Body mass index [BMI] 45.0-49.9, adult; Z86.711 Personal history of pulmonary embolism; D64.9 Anemia, unspecified

== ENCOUNTER 2019-10-11 22:10 | Emergency (ER) | payer MEDICARE ==
[~2019-10-11] VITALS: Ht 160 cm; Wt 111.1 kg
[2019-10-11 22:17] VITALS: Ht 160 cm; Wt 111.1 kg
[2019-10-11] MEDS ORDERED: HYDROCODON-ACE1 EA10 PO (22:19)
[2019-10-11 23:06] LABS: BASOPHILS 0 % (0-2); EOSINOPHILS 0.1 % (0-7); HEMATOCRIT 40.7 % (36.0-48.0); IMMATURE GRANULOCYTES 0.3 % (0-5); LYMPHOCYTES 17.8 % (15-50); MCH 26.6 pg (26.0-34.0); MCHC 31.9 g/dL (31.0-37.0); MCV 83.4 fL (80.0-100.0); MEAN PLATELET VOLUME 9.3 fL (7.4-10.4); MONOCYTES 6.2 % (2-11); NEUTROPHILS 75.6 % (40-80); RBC 4.88 10x6/uL (4.00-5.40); RDW 14.4 % (11.5-14.5)
[2019-10-11 23:10] LABS: PLATELET COUNT 350 10x3/uL (130-400)
[2019-10-11 23:22] LABS: APPEARANCE HAZY (CLEAR); BILIRUBIN NEGATIVE (NEGATIVE); COLOR YELLOW (YELLOW); GLUCOSE NEGATIVE (NEGATIVE); HCG URINE NEGATIVE (NEGATIVE); KETONE SMALL mg/dL (NEGATIVE); NITRITE NEGATIVE (NEGATIVE); PROTEIN 1+ mg/dL (NEGATIVE); UROBILINOGEN NORMAL (NORMAL)
[2019-10-11 23:24] LABS: BACTERIA MODERATE /hpf (NEGATIVE); EPITHELIAL CELLS 0-5 /hpf (0-5); MUCUS <1+ /lpf (NONE SEEN); RED CELLS - URINE 0-5 /hpf (0-5); WHITE CELLS - URINE 0-5 /hpf (NEGATIVE)
[2019-10-11 23:29] LABS: CALC OSMOLALITY 278 mosm/kg (275-300); CALCIUM 9.2 mg/dL (8.5-10.1); CARBON DIOXIDE 27.5 mmol/L (21.0-32.0); CHLORIDE - SERUM 101 mmol/L (98-107); CREATININE - SERUM 0.7 mg/dL (0.6-1.3); GLUCOSE 127 mg/dL (74-106); POTASSIUM - SERUM 3.4 mmol/L (3.5-5.1); SODIUM 140 mmol/L (136-145); UREA NITROGEN 7 mg/dL (7-18); eGFR NON AFRICAN AMERICAN > 90 mL/min (90-120)
[2019-10-11 23:40] LABS: ALKALINE PHOSPHATASE 116 U/L (46-116); ALT (SGPT) 32 U/L (10-68); AMYLASE - SERUM 41 U/L (25-115); BILIRUBIN - TOTAL 0.32 mg/dL (0.2-1.3); LIPASE 199 U/L (73-393)
[2019-10-11 23:41] LABS: TROPONIN-I < 0.017 ng/mL (0.000-0.060)
[2019-10-12] MEDS ORDERED: PHENERGAN25 M1 PO (00:59)
[2019-10-12 01:25] VITALS: BP 142/74
== END 2019-10-12 01:39 | disposition home or self-care (01) ==
LOC: D.ER 22:10
PROVIDERS: Emergency Medicine
DX: E11.43 Type 2 diabetes mellitus with diabetic autonomic (poly)neuropathy (principal); K31.84 Gastroparesis; R56.9 Unspecified convulsions; Z79.84 Long term (current) use of oral hypoglycemic drugs; J44.9 Chronic obstructive pulmonary disease, unspecified; Z86.711 Personal history of pulmonary embolism

== ENCOUNTER 2019-11-02 13:07 | Emergency (ER) | payer MEDICARE ==
[~2019-11-02] VITALS: Ht 160 cm; Wt 127.3 kg
[~2019-11-02 13:07] MED LIST changes: +HYDROCODON-ACE1 EA10 PO
[2019-11-02 14:26] VITALS: Ht 160 cm; Wt 127.3 kg
[2019-11-02 14:40] LABS: BASOPHILS 0.1 % (0-2); EOSINOPHILS 0 % (0-7); HEMATOCRIT 39.5 % (36.0-48.0); HEMOGLOBIN 12.6 g/dL (12-16); IMMATURE GRANULOCYTES 0.4 % (0-5); MCH 26.6 pg (26.0-34.0); MCHC 31.9 g/dL (31.0-37.0); MCV 83.5 fL (80.0-100.0); MEAN PLATELET VOLUME 9.2 fL (7.4-10.4); MONOCYTES 6.6 % (2-11); NEUTROPHILS 73.9 % (40-80); PLATELET COUNT 343 10x3/uL (130-400); RBC 4.73 10x6/uL (4.00-5.40); RDW 14.8 % (11.5-14.5); WBC 12.1 10x3/uL (4.8-10.8)
[2019-11-02 14:45] LABS: CALC OSMOLALITY 281 mosm/kg (275-300); CALCIUM 9.1 mg/dL (8.5-10.1); CARBON DIOXIDE 25.3 mmol/L (21.0-32.0); CHLORIDE - SERUM 105 mmol/L (98-107); CREATININE - SERUM 0.8 mg/dL (0.6-1.3); GLUCOSE 114 mg/dL (74-106); POTASSIUM - SERUM 4.2 mmol/L (3.5-5.1); SODIUM 142 mmol/L (136-145); UREA NITROGEN 7 mg/dL (7-18); eGFR NON AFRICAN AMERICAN 85 mL/min (90-120)
[2019-11-02 14:55] LABS: ALBUMIN 3.8 g/dL (3.4-5.0); ALKALINE PHOSPHATASE 107 U/L (46-116); ALT (SGPT) 29 U/L (10-68); BILIRUBIN - TOTAL 0.19 mg/dL (0.2-1.3); PROTEIN - SERUM 7.8 g/dL (6.4-8.2)
[2019-11-02 15:36] LABS: COLOR YELLOW (YELLOW)
[2019-11-02 15:37] LABS: APPEARANCE CLEAR (CLEAR); BILIRUBIN NEGATIVE (NEGATIVE); GLUCOSE NEGATIVE (NEGATIVE); HCG URINE NEGATIVE (NEGATIVE); KETONE NEGATIVE (NEGATIVE); NITRITE NEGATIVE (NEGATIVE); PROTEIN NEGATIVE (NEGATIVE); UROBILINOGEN NORMAL (NORMAL)
[2019-11-02 15:42] LABS: UDS - AMPHET NEGATIVE QUAL (NEGATIVE); UDS - BARB NEGATIVE QUAL (NEGATIVE); UDS - BENZO POSITIVE QUAL (NEGATIVE); UDS - COCAINE NEGATIVE QUAL (NEGATIVE); UDS - OPIATE NEGATIVE QUAL (NEGATIVE); UDS - PCP NEGATIVE QUAL (NEGATIVE); UDS - THC NEGATIVE QUAL (NEGATIVE)
[2019-11-02 18:42] VITALS: BP 148/99
== END 2019-11-02 18:43 | disposition other institution (70) ==
LOC: D.ER 13:07
PROVIDERS: Family Medicine
DX: G40.909 Epilepsy, unspecified, not intractable, without status epilepticus (principal); E11.9 Type 2 diabetes mellitus without complications; Z79.84 Long term (current) use of oral hypoglycemic drugs; I10 Essential (primary) hypertension; J44.9 Chronic obstructive pulmonary disease, unspecified

== ENCOUNTER 2020-01-25 14:38 | Emergency (ER) | payer MEDICARE ==
[~2020-01-25] VITALS: Ht 160 cm; Wt 110.9 kg
[2020-01-25 14:47] VITALS: Ht 160 cm; Wt 110.9 kg
[2020-01-25] MEDS ORDERED: COUMADIN6 MG PO (14:55)
[2020-01-25] MEDS ORDERED: PRINIVIL20 MG PO (14:55)
[2020-01-25] MEDS ORDERED: HYDROCODON-ACE1 EA10 PO (14:56)
[2020-01-25 15:17] LABS: BASOPHILS 0.1 % (0-2); EOSINOPHILS 0 % (0-7); HEMATOCRIT 35.7 % (36.0-48.0); HEMOGLOBIN 11.3 g/dL (12-16); IMMATURE GRANULOCYTES 0.3 % (0-5); LYMPHOCYTES 20.9 % (15-50); MCH 26.2 pg (26.0-34.0); MCHC 31.7 g/dL (31.0-37.0); MCV 82.6 fL (80.0-100.0); MEAN PLATELET VOLUME 9.4 fL (7.4-10.4); MONOCYTES 6.7 % (2-11); PLATELET COUNT 381 10x3/uL (130-400); RBC 4.32 10x6/uL (4.00-5.40); WBC 11.3 10x3/uL (4.8-10.8)
[2020-01-25 15:31] LABS: CALC OSMOLALITY 276 mosm/kg (275-300); CALCIUM 9.2 mg/dL (8.5-10.1); CARBON DIOXIDE 26.9 mmol/L (21.0-32.0); CHLORIDE - SERUM 101 mmol/L (98-107); CREATININE - SERUM 0.6 mg/dL (0.6-1.3); GLUCOSE 104 mg/dL (74-106); POTASSIUM - SERUM 3.7 mmol/L (3.5-5.1); SODIUM 140 mmol/L (136-145); UREA NITROGEN 6 mg/dL (7-18); eGFR NON AFRICAN AMERICAN > 90 mL/min (90-120)
[2020-01-25 15:38] LABS: ALBUMIN 3.8 g/dL (3.4-5.0); ALKALINE PHOSPHATASE 97 U/L (30-120); ALT (SGPT) 27 U/L (10-68); AMYLASE - SERUM 42 U/L (25-115); BILIRUBIN - TOTAL 0.11 mg/dL (0.2-1.3); LIPASE 157 U/L (73-393); PROTEIN - SERUM 7.4 g/dL (6.4-8.2); TROPONIN-I < 0.017 ng/mL (0.000-0.060)
[2020-01-25 15:43] LABS: INR 6.81 (0.85-1.17); PROTIME 57.5 SECONDS (11.6-15.0)
[2020-01-25 16:30] LABS: HCG URINE NEGATIVE (NEGATIVE)
[2020-01-25 16:36] LABS: UDS - AMPHET NEGATIVE QUAL (NEGATIVE); UDS - BARB NEGATIVE QUAL (NEGATIVE); UDS - BENZO NEGATIVE QUAL (NEGATIVE); UDS - COCAINE NEGATIVE QUAL (NEGATIVE); UDS - OPIATE NEGATIVE QUAL (NEGATIVE); UDS - PCP NEGATIVE QUAL (NEGATIVE); UDS - THC NEGATIVE QUAL (NEGATIVE)
[2020-01-25 16:56] LABS: BILIRUBIN NEGATIVE (NEGATIVE); GLUCOSE NEGATIVE (NEGATIVE); KETONE NEGATIVE (NEGATIVE); NITRITE NEGATIVE (NEGATIVE); UROBILINOGEN NORMAL (NORMAL)
[2020-01-25 16:58] LABS: BACTERIA FEW /hpf (NEGATIVE); EPITHELIAL CELLS 0-5 /hpf (0-5); RED CELLS - URINE OCC /hpf (0-5); WHITE CELLS - URINE OCC /hpf (NEGATIVE); YEAST <1+ /hpf (NONE SEEN)
[2020-01-25 19:51] VITALS: BP 128/74
== END 2020-01-25 19:54 | disposition home or self-care (01) ==
LOC: D.ER 14:38
PROVIDERS: Family Medicine
DX: R10.9 Unspecified abdominal pain (principal); E11.43 Type 2 diabetes mellitus with diabetic autonomic (poly)neuropathy; G40.909 Epilepsy, unspecified, not intractable, without status epilepticus; K94.13 Enterostomy malfunction; I10 Essential (primary) hypertension; J44.9 Chronic obstructive pulmonary disease, unspecified; Z86.711 Personal history of pulmonary embolism; R79.1 Abnormal coagulation profile

== ENCOUNTER → 2021-05-15 21:00 | Outpatient (CLI) | payer MEDICARE ==
[2020-12-21 12:10] VITALS: BMI 44.1
[~2021-05-15 21:00] MED LIST changes: +CATAPRES0.1 MG PO; +HYDROCHLOROTHIA25 MG PO; +PRINIVIL20 MG PO; +TOPAMAX100 MG PO; +WARFARIN SODIU7.5 MG PO
[2021-05-15 21:29] LABS: BASOPHILS 0.5 % (0-2); EOSINOPHILS 0 % (0-7); HEMATOCRIT 34.9 % (36.0-48.0); HEMOGLOBIN 10.4 g/dL (12-16); LYMPHOCYTES 16.9 % (15-50); MCH 22.3 pg (26.0-34.0); MCV 74.3 fL (80.0-100.0); MEAN PLATELET VOLUME 8.2 fL (7.4-10.4); MONOCYTES 6.4 % (2-11); NEUTROPHILS 76.2 % (40-80); RBC 4.69 10x6/uL (4.00-5.40); RDW 19.4 % (11.5-14.5); WBC 13.8 10x3/uL (4.8-10.8)
[2021-05-15 21:36] LABS: PLATELET COUNT 489 10x3/uL (130-400)
[2021-05-15 22:02] LABS: ALBUMIN 4.1 g/dL (3.4-5.0); ANION GAP 17.4 mmol/L (8-16); BILIRUBIN - TOTAL 0.41 mg/dL (0.2-1.3); CALCIUM 9.3 mg/dL (8.5-10.1); CARBON DIOXIDE 26.4 mmol/L (21.0-32.0); CHOL - HDL RATIO 3.2 ratio (2.3-4.1); CREATININE - SERUM 1.1 mg/dL (0.6-1.3); LDL-HDL RATIO 1.5 ratio (1.5-3.5); POTASSIUM - SERUM 4.8 mmol/L (3.5-5.1); PROTEIN - SERUM 8.3 g/dL (6.4-8.2)
== END | disposition home or self-care (01) ==
LOC: D.LABREF 21:00
PROVIDERS: ATTEND Family Medicine
DX: E11.69 Type 2 diabetes mellitus with other specified complication (principal); I25.110 Atherosclerotic heart disease of native coronary artery with unstable angina pectoris

== ENCOUNTER → 2021-05-18 12:54 | Outpatient (CLI) | payer MEDICARE ==
[2020-12-21 12:10] VITALS: BMI 44.1
[2021-05-18 14:04] LABS: BASOPHILS 0.2 % (0-2); EOSINOPHILS 0.1 % (0-7); HEMATOCRIT 34.2 % (36.0-48.0); HEMOGLOBIN 10.7 g/dL (12-16); LYMPHOCYTES 18.3 % (15-50); MCH 22.7 pg (26.0-34.0); MCHC 31.5 g/dL (31.0-37.0); MEAN PLATELET VOLUME 8.6 fL (7.4-10.4); MONOCYTES 5.5 % (2-11); NEUTROPHILS 75.9 % (40-80); PLATELET COUNT 476 10x3/uL (130-400); RBC 4.74 10x6/uL (4.00-5.40); RDW 19.1 % (11.5-14.5); WBC 12.9 10x3/uL (4.8-10.8)
[2021-05-18 14:56] LABS: BACTERIA FEW HPF (<MOD); BILIRUBIN NEGATIVE (NEGATIVE); GRANULAR CAST 1 LPF (0-1); KETONE NEGATIVE mg/dL (< 1+); NITRITE NEGATIVE (NEGATIVE); PH 5.5 (5.0-8.0); SQUAMOUS EPITHELIAL 22 HPF (0-4); UROBILINOGEN 2 mg/dL (< 2); WHITE CELLS - URINE 3 HPF (0-4)
== END | disposition home or self-care (01) ==
LOC: D.LABREF 12:54
PROVIDERS: ATTEND Family Medicine
DX: Z51.81 Encounter for therapeutic drug level monitoring (principal)